=== PATIENT | male | born 1965 | race Caucasian/White ===

== ENCOUNTER 2016-11-16 15:46 | Inpatient (IN) | payer MEDICARE ==
[~2016-11-16] VITALS: Ht 175.3 cm; Wt 75.7 kg
[~2016-11-16 15:46] MED LIST: BLOO-668 IN; INSU100V11 SQ; INSU100V7 SQ; LINE600T2 PO; METF500T7 PO
[2016-11-16 16:10] LABS: BASOPHILS # (AUTO) 0.1 /CMM (0.0-0.2); BASOPHILS % (AUTO) 0.5 % (0.0-2.0); DIFF TOTAL % 100 %; HEMATOCRIT 30 % (39-51); LYMPHOCYTES % (AUTO) 5.4 % (20.0-44.0); MEAN CORPUSCULAR HEMOGLOBIN 30 PG (26.0-33.0); MEAN CORPUSCULAR HGB CONC 34 g/dl (31.0-36.0); MEAN CORPUSCULAR VOLUME 89 fL (80-96); MONOCYTES # (AUTO) 0.2 /CMM (0.1-1.30); MONOCYTES % (AUTO) 1.1 % (2.0-12.0); NEUTROPHILS # (AUTO) 17.6 /CMM (1.8-8.9); PLATELET COUNT (AUTO) 474 /CMM (150-450); RED BLOOD CELL COUNT(AUTO) 3.34 MIL/uL (4.5-6.0); WHITE BLOOD COUNT (AUTO) 18.9 K/uL (4.3-11.0)
[2016-11-16 16:24] LABS: INR 1.12 (0.87-1.13); PROTHROMBIN TIME 11.8 SECS (9.5-12.7)
[2016-11-16] MEDS ORDERED: MORPHINE SULFATE INJ 4 MG/ML DISP.SYRIN ONE (16:25)
[2016-11-16] MEDS ORDERED: ONDANSETRON HCL/PF 4 MG/2 ML VIAL ONE (16:25)
[2016-11-16] MEDS ORDERED: ACETAMINOPHEN ES 500 MG TABLET ONE (16:25)
[2016-11-16 16:26] LABS: ANION GAP 20 (5-14); BILIRUBIN,TOTAL 0.2 mg/dL (0.2-1.0); CALCIUM, SERUM 8.8 mg/dL (8.5-10.1); CARBON DIOXIDE 24 mmol/L (21-32); CHLORIDE 86 mmol/L (98-107); CREATININE 1.6 mg/dL (0.6-1.3); GFR 46 mL/min (>60); POTASSIUM 4.3 mmol/L (3.5-5.1); SODIUM SERUM 126 mmol/L (136-145); UREA NITROGEN, BLOOD 20 mg/dL (7-18)
[2016-11-16] MEDS ORDERED: IV NS 0.9% 2,000 ML ONE (16:26)
[2016-11-16] MEDS ORDERED: IV NS 0.9% 500 ML IV ONE (16:26)
[2016-11-16] MEDS ORDERED: IV SET PRIMARY 1 EA INFUS.SET MC ONE (16:26)
[2016-11-16] MEDS ORDERED: IV SET PRIMARY PUMP SET 1 EA INFUS.SET MC ONE ×3 (16:26→21:42)
[2016-11-16 16:27] LABS: ALANINE AMINOTRANSFERASE 19 U/L (12-78); ALBUMIN 2.2 g/dL (3.4-5.0); ASPARTATE AMINOTRANSFERASE 17 U/L (15-37); BILIRUBIN,DIRECT 0.1 mg/dL (0.0-0.2); INDIRECT BILIRUBIN 0.1 mg/dL (0.0-1.1); TOTAL PROTEIN, SERUM 7.9 g/dL (6.4-8.2)
[2016-11-16 16:29] LABS: TROPONIN I < 0.017 ng/mL (0.00-0.056)
[2016-11-16] MEDS ORDERED: ONDANSETRON HCL/PF 4 MG/2 ML VIAL IVP ONE (16:30)
[2016-11-16] MEDS ORDERED: VANCOMYCIN 1 GM in IV D5W 250 ML IV ONE (16:30)
[2016-11-16] MEDS ORDERED: MORPHINE SULFATE INJ 2 MG/ML DISP.SYRIN IV ONE (16:30)
[2016-11-16] MEDS ORDERED: PIPERACILLIN /TAZOBACTAM 3.375 G in IV D5W 50 ML IV ONE (16:30)
[2016-11-16] MEDS ORDERED: IV NS 0.9% 1,000 ML BAG IV ONE (16:30)
[2016-11-16] MEDS ORDERED: ACETAMINOPHEN 325 MG TABLET PO ONE (16:30)
[2016-11-16 16:32] LABS: GLUCOSE 485 mg/dL (74-106)
[2016-11-16] MEDS ORDERED: INSULIN REGULAR, HUMAN 100 UNIT/ML 10 ML VIAL SQ ONE (17:00)
[2016-11-16 17:08] LABS: *LACTIC ACID REFLEX FLAG YES
[2016-11-16 17:14] LABS: BAND % (MANUAL) 9 % (0.0-5.0); LYMPHOCYTES % (MANUAL) 4 % (16-48)
[2016-11-16 17:15] LABS: PLATELET ESTIMATE ADEQUATE
[2016-11-16] MEDS ORDERED: INSULIN REGULAR, HUMAN 100 UNIT/ML 10 ML VIAL ONE (17:42)
[2016-11-16] MEDS ORDERED: DEXTROSE 50%-WATER 50 ML DISP.SYRIN IV PRN (18:30)
[2016-11-16] MEDS ORDERED: MAGNESIUM HYDROXIDE 30 ML UDC PO PRN (18:30)
[2016-11-16] MEDS ORDERED: MAG HYDROX/AL HYDROX/SIMETH 30 ML UDC PO PRN (18:30)
[2016-11-16] MEDS ORDERED: PIPERACILLIN /TAZOBACTAM 4.5 G in IV D5W 50 ML IV SCH (18:30)
[2016-11-16] MEDS ORDERED: ZOLPIDEM TARTRATE 5 MG TABLET PO PRN (18:30)
[2016-11-16] MEDS ORDERED: ACETAMINOPHEN 325 MG TABLET PO PRN (18:30)
[2016-11-16] MEDS ORDERED: FEE PK DOSING 1 MIN EA MC ONE (19:07)
[2016-11-16 20:45] VITALS: BP 149/84
[2016-11-16 21:15] VITALS: BP 149/84
[2016-11-16] MEDS: METRONIDAZOLE 500MG/ NS 100ML 500 MG in PREMIX 1 EA IV SCH (21:41)
[2016-11-16] MEDS: PANTOPRAZOLE 40 MG TABLET.DR PO SCH (21:41)
[2016-11-16] MEDS: IV NS 0.9% 1,000 ML IV PRN (21:42)
[2016-11-16] MEDS: HYDROCODONE/APAP 5/325MG 1 EACH TABLET PO PRN (21:42)
[2016-11-16] MEDS ORDERED: SECONDARY IV SET 1 EA INFUS.SET MC ONE ×2 (21:44→23:47)
[2016-11-16] MEDS: INSULIN DETEMIR 100 UNIT/ML CARTRIDGE SQ SCH (22:00)
[2016-11-16] MEDS: BLOOD SUGAR DIAGNOSTIC 1 EACH STRIP IN SCH ×2 (22:29→22:38)
[2016-11-16] MEDS: PIPERACILLIN /TAZOBACTAM 3.375 G in IV D5W 50 ML IV SCH (23:54)
[2016-11-17] VITALS (7 sets, daily range): BP systolic 131–157; BP diastolic 69–74
[2016-11-17] MEDS: HYDROCODONE/APAP 5/325MG 1 EACH TABLET PO PRN ×3 (01:47→10:02)
[2016-11-17] MEDS: METRONIDAZOLE 500MG/ NS 100ML 500 MG in PREMIX 1 EA IV SCH ×2 (05:02→13:32)
[2016-11-17] MEDS: PIPERACILLIN /TAZOBACTAM 3.375 G in IV D5W 50 ML IV SCH ×4 (06:04→23:23)
[2016-11-17] MEDS: VANCOMYCIN 1 GM in IV D5W 250 ML IV SCH ×2 (06:30→17:50)
[2016-11-17] MEDS: BLOOD SUGAR DIAGNOSTIC 1 EACH STRIP IN SCH ×6 (06:37→21:43)
[2016-11-17] MEDS: INSULIN REGULAR, HUMAN 100 UNIT/ML 3 ML VIAL SQ PRN ×2 (06:38→17:07)
[2016-11-17] MEDS: INSULIN DETEMIR 100 UNIT/ML CARTRIDGE SQ SCH ×2 (07:00→17:04)
[2016-11-17 07:23] LABS: DIFF TOTAL % 100 %; EOSINOPHILS # (AUTO) 0.1 /CMM (0.0-0.7); EOSINOPHILS % (AUTO) 0.4 % (0.0-6.0); HEMATOCRIT 24 % (39-51); HEMOGLOBIN 8.1 g/dL (13.5-17.5); LYMPHOCYTES % (AUTO) 6.5 % (20.0-44.0); MEAN CORPUSCULAR HEMOGLOBIN 30 PG (26.0-33.0); MEAN CORPUSCULAR HGB CONC 34 g/dl (31.0-36.0); MEAN CORPUSCULAR VOLUME 89 fL (80-96); MONOCYTES # (AUTO) 1.2 /CMM (0.1-1.30); MONOCYTES % (AUTO) 8.4 % (2.0-12.0); NEUTROPHILS # (AUTO) 12.5 /CMM (1.8-8.9); NEUTROPHILS % (AUTO) 84.7 % (43.0-81.0); PLATELET COUNT (AUTO) 401 /CMM (150-450); RED BLOOD CELL COUNT(AUTO) 2.69 MIL/uL (4.5-6.0); WHITE BLOOD COUNT (AUTO) 14.7 K/uL (4.3-11.0)
[2016-11-17 07:54] LABS: ALANINE AMINOTRANSFERASE 20 U/L (12-78); ALBUMIN 1.8 g/dL (3.4-5.0); ANION GAP 9 (5-14); ASPARTATE AMINOTRANSFERASE 16 U/L (15-37); BILIRUBIN,TOTAL 0.2 mg/dL (0.2-1.0); CALCIUM, SERUM 8.4 mg/dL (8.5-10.1); CARBON DIOXIDE 31 mmol/L (21-32); CHLORIDE 98 mmol/L (98-107); CREATININE 1.3 mg/dL (0.6-1.3); GFR 58 mL/min (>60); GLUCOSE 163 mg/dL (74-106); PHOSPHORUS 3.2 mg/dL (2.5-4.9); POTASSIUM 3.9 mmol/L (3.5-5.1); SODIUM SERUM 134 mmol/L (136-145); TOTAL PROTEIN, SERUM 6.6 g/dL (6.4-8.2); UREA NITROGEN, BLOOD 21 mg/dL (7-18)
[2016-11-17 07:55] LABS: CHOLESTEROL 110 mg/dL (<200); LDL 41 mg/dL (0-99); TRIGLYCERIDES 225 mg/dL (30-150)
[2016-11-17 07:56] LABS: HDL CHOLESTEROL < 10 mg/dL (40-60)
[2016-11-17] MEDS: PANTOPRAZOLE 40 MG TABLET.DR PO SCH (09:13)
[2016-11-17] MEDS: DAKINS QUARTER STRENGTH (0.125%) 480 ML BOTTLE TOP SCH (09:13)
[2016-11-17] MEDS ORDERED: FENTANYL PF 100MCG/2ML AMPUL ONE (11:28)
[2016-11-17] MEDS ORDERED: MIDAZOLAM HCL 2 MG/2ML VIAL ONE (11:28)
[2016-11-17] MEDS ORDERED: LIDOCAINE HCL/PF 1% 30 ML SDV ONE (11:37)
[2016-11-17] MEDS ORDERED: VANCOMYCIN 1 GM VIAL ONE (11:42)
[2016-11-17] MEDS ORDERED: BACITRACIN 50000 UNITS/VIAL ONE (11:42)
[2016-11-17] MEDS: HYDROCODONE/APAP 10/325MG 1 EA TABLET PO PRN ×2 (17:02→21:40)
[2016-11-17] MEDS: IV NS 0.9% 1,000 ML IV PRN (17:14)
[2016-11-18] MEDS: VANCOMYCIN 1 GM in IV D5W 250 ML IV SCH (05:08)
[2016-11-18] MEDS: PIPERACILLIN /TAZOBACTAM 3.375 G in IV D5W 50 ML IV SCH ×3 (06:12→17:04)
[2016-11-18 06:44] LABS: BASOPHILS % (AUTO) 0.1 % (0.0-2.0); DIFF TOTAL % 100 %; EOSINOPHILS # (AUTO) 0.1 /CMM (0.0-0.7); EOSINOPHILS % (AUTO) 0.8 % (0.0-6.0); HEMATOCRIT 24 % (39-51); LYMPHOCYTES # (AUTO) 1.1 /CMM (0.8-4.8); LYMPHOCYTES % (AUTO) 9.8 % (20.0-44.0); MEAN CORPUSCULAR HEMOGLOBIN 30 PG (26.0-33.0); MEAN CORPUSCULAR HGB CONC 33 g/dl (31.0-36.0); MEAN CORPUSCULAR VOLUME 91 fL (80-96); MONOCYTES # (AUTO) 0.5 /CMM (0.1-1.30); MONOCYTES % (AUTO) 4.1 % (2.0-12.0); NEUTROPHILS # (AUTO) 9.8 /CMM (1.8-8.9); NEUTROPHILS % (AUTO) 85.2 % (43.0-81.0); PLATELET COUNT (AUTO) 435 /CMM (150-450); RED BLOOD CELL COUNT(AUTO) 2.66 MIL/uL (4.5-6.0); RETICULOCYTE COUNT 0.3 % (0.6-2.5); WHITE BLOOD COUNT (AUTO) 11.5 K/uL (4.3-11.0)
[2016-11-18] MEDS: INSULIN DETEMIR 100 UNIT/ML CARTRIDGE SQ SCH ×2 (07:00→16:50)
[2016-11-18] MEDS: BLOOD SUGAR DIAGNOSTIC 1 EACH STRIP IN SCH ×5 (07:09→22:45)
[2016-11-18] MEDS: INSULIN REGULAR, HUMAN 100 UNIT/ML 3 ML VIAL SQ PRN ×3 (07:10→16:50)
[2016-11-18 07:24] LABS: CALCIUM, SERUM 8.1 mg/dL (8.5-10.1); CREATININE 1.4 mg/dL (0.6-1.3); POTASSIUM 3.5 mmol/L (3.5-5.1)
[2016-11-18 07:39] LABS: URIC ACID 4.2 mg/dL (2.6-7.2)
[2016-11-18 07:50] VITALS: BP 152/81
[2016-11-18 08:00] VITALS: BP 138/72
[2016-11-18] MEDS: PANTOPRAZOLE 40 MG TABLET.DR PO SCH (08:19)
[2016-11-18] MEDS: MULTIVITAMINS W-MINERALS 1 TAB TABLET PO SCH (08:19)
[2016-11-18] MEDS: ASCORBIC ACID 500 MG TABLET PO SCH (08:19)
[2016-11-18] MEDS: HYDROCODONE/APAP 10/325MG 1 EA TABLET PO PRN ×3 (08:30→22:41)
[2016-11-18] MEDS: DAKINS QUARTER STRENGTH (0.125%) 480 ML BOTTLE TOP SCH (09:00)
[2016-11-18] MEDS ORDERED: LOPERAMIDE HCL (2 MG CAP) 2 MG CAPSULE PO ONE (11:30)
[2016-11-18] MEDS: IV NS 0.9% 1,000 ML IV PRN (11:37)
[2016-11-18] MEDS: FOLIC ACID 1 MG TABLET PO SCH (13:30)
[2016-11-18 16:00] VITALS: BP 153/78
[2016-11-18] MEDS: LOPERAMIDE HCL (2 MG CAP) 2 MG CAPSULE PO PRN (17:08)
[2016-11-18] MEDS ORDERED: VANCOMYCIN 1 GM in IV D5W 250 ML IV SCH (19:00)
[2016-11-18 20:00] VITALS: BP 168/86
[2016-11-18] MEDS: METRONIDAZOLE 500 MG TABLET PO SCH (21:10)
[2016-11-18] MEDS: ACIDOPHILUS/BULGARICUS 1 EACH TAB.CHEW PO SCH (21:10)
[2016-11-18] MEDS: CEFTRIAXONE 2 G in IV D5W 100 ML IV SCH (21:10)
[2016-11-18] MEDS ORDERED: SECONDARY IV SET 1 EA INFUS.SET MC ONE (21:11)
[2016-11-19] MEDS: HYDROCODONE/APAP 10/325MG 1 EA TABLET PO PRN ×4 (03:38→20:18)
[2016-11-19] MEDS: METRONIDAZOLE 500 MG TABLET PO SCH ×3 (05:21→20:17)
[2016-11-19] MEDS: BLOOD SUGAR DIAGNOSTIC 1 EACH STRIP IN SCH ×5 (06:22→21:13)
[2016-11-19] MEDS ORDERED: IV SET PRIMARY PUMP SET 1 EA INFUS.SET MC ONE (07:06)
[2016-11-19] MEDS: INSULIN REGULAR, HUMAN 100 UNIT/ML 3 ML VIAL SQ PRN (07:15)
[2016-11-19] MEDS: INSULIN DETEMIR 100 UNIT/ML CARTRIDGE SQ SCH ×2 (07:15→16:43)
[2016-11-19 07:57] LABS: CALCIUM, SERUM 8.5 mg/dL (8.5-10.1); CREATININE 1.5 mg/dL (0.6-1.3); POTASSIUM 3.7 mmol/L (3.5-5.1)
[2016-11-19 08:00] VITALS: BP 162/78
[2016-11-19] MEDS: MULTIVITAMINS W-MINERALS 1 TAB TABLET PO SCH (08:37)
[2016-11-19] MEDS: ACIDOPHILUS/BULGARICUS 1 EACH TAB.CHEW PO SCH ×3 (08:37→16:26)
[2016-11-19] MEDS: ASCORBIC ACID 500 MG TABLET PO SCH (08:37)
[2016-11-19] MEDS: FOLIC ACID 1 MG TABLET PO SCH (08:37)
[2016-11-19] MEDS: PANTOPRAZOLE 40 MG TABLET.DR PO SCH (08:37)
[2016-11-19 08:38] LABS: BASOPHILS % (AUTO) 0.2 % (0.0-2.0); DIFF TOTAL % 100 %; EOSINOPHILS # (AUTO) 0.3 /CMM (0.0-0.7); EOSINOPHILS % (AUTO) 2.3 % (0.0-6.0); HEMATOCRIT 26 % (39-51); HEMOGLOBIN 8.4 g/dL (13.5-17.5); LYMPHOCYTES # (AUTO) 1.2 /CMM (0.8-4.8); LYMPHOCYTES % (AUTO) 8.5 % (20.0-44.0); MEAN CORPUSCULAR HEMOGLOBIN 30 PG (26.0-33.0); MEAN CORPUSCULAR HGB CONC 33 g/dl (31.0-36.0); MEAN CORPUSCULAR VOLUME 91 fL (80-96); MONOCYTES # (AUTO) 0.8 /CMM (0.1-1.30); MONOCYTES % (AUTO) 5.7 % (2.0-12.0); NEUTROPHILS # (AUTO) 11.7 /CMM (1.8-8.9); NEUTROPHILS % (AUTO) 83.3 % (43.0-81.0); PLATELET COUNT (AUTO) 561 /CMM (150-450); RED BLOOD CELL COUNT(AUTO) 2.83 MIL/uL (4.5-6.0)
[2016-11-19] MEDS: DAKINS QUARTER STRENGTH (0.125%) 480 ML BOTTLE TOP SCH (09:00)
[2016-11-19] MEDS: IV NS 0.9% 1,000 ML IV PRN (09:32)
[2016-11-19 09:42] VITALS: BP 162/78
[2016-11-19] MEDS: LOPERAMIDE HCL (2 MG CAP) 2 MG CAPSULE PO PRN (14:29)
[2016-11-19 16:00] VITALS: BP 169/92
[2016-11-19 20:00] VITALS: BP 172/92
[2016-11-19] MEDS: CEFTRIAXONE 2 G in IV D5W 100 ML IV SCH (20:19)
[2016-11-19 20:29] VITALS: BP 172/92
[2016-11-19 21:00] VITALS: BP 153/79
[2016-11-20] MEDS: IV NS 0.9% 1,000 ML IV PRN (03:12)
[2016-11-20] MEDS: HYDROCODONE/APAP 10/325MG 1 EA TABLET PO PRN ×4 (03:12→22:52)
[2016-11-20] MEDS: METRONIDAZOLE 500 MG TABLET PO SCH ×3 (05:43→21:53)
[2016-11-20] MEDS: BLOOD SUGAR DIAGNOSTIC 1 EACH STRIP IN SCH ×5 (06:42→21:53)
[2016-11-20] MEDS: INSULIN DETEMIR 100 UNIT/ML CARTRIDGE SQ SCH ×2 (06:43→18:43)
[2016-11-20] MEDS ORDERED: FENTANYL PF 100MCG/2ML AMPUL ONE (06:55)
[2016-11-20] MEDS ORDERED: LIDOCAINE HCL/PF 1% 30 ML SDV ONE (07:00)
[2016-11-20] MEDS ORDERED: BUPIVACAINE 0.5 % PF 150 MG/30 ML VIAL ONE (07:01)
[2016-11-20] MEDS ORDERED: BACITRACIN 50000 UNITS/VIAL ONE (07:01)
[2016-11-20] MEDS ORDERED: SEVOFLURANE 250 ML BOTTLE IH ONE (07:09)
[2016-11-20] MEDS: PANTOPRAZOLE 40 MG TABLET.DR PO SCH (07:30)
[2016-11-20] MEDS ORDERED: VANCOMYCIN 1 GM VIAL ONE (07:31)
[2016-11-20 08:00] VITALS: BP_SYST 146; BP_DIAS 76; BP_DIAS 82
[2016-11-20] MEDS: ASCORBIC ACID 500 MG TABLET PO SCH (09:24)
[2016-11-20] MEDS: MULTIVITAMINS W-MINERALS 1 TAB TABLET PO SCH (09:24)
[2016-11-20] MEDS: ACIDOPHILUS/BULGARICUS 1 EACH TAB.CHEW PO SCH ×3 (09:24→18:42)
[2016-11-20] MEDS: FOLIC ACID 1 MG TABLET PO SCH (09:24)
[2016-11-20 10:24] LABS: BASOPHILS % (AUTO) 0.4 % (0.0-2.0); DIFF TOTAL % 100 %; EOSINOPHILS # (AUTO) 0.2 /CMM (0.0-0.7); EOSINOPHILS % (AUTO) 1.8 % (0.0-6.0); HEMATOCRIT 25 % (39-51); HEMOGLOBIN 8.1 g/dL (13.5-17.5); LYMPHOCYTES # (AUTO) 0.9 /CMM (0.8-4.8); LYMPHOCYTES % (AUTO) 6.7 % (20.0-44.0); MEAN CORPUSCULAR HEMOGLOBIN 30 PG (26.0-33.0); MEAN CORPUSCULAR HGB CONC 33 g/dl (31.0-36.0); MEAN CORPUSCULAR VOLUME 91 fL (80-96); MONOCYTES # (AUTO) 0.7 /CMM (0.1-1.30); MONOCYTES % (AUTO) 5.1 % (2.0-12.0); NEUTROPHILS # (AUTO) 11.2 /CMM (1.8-8.9); PLATELET COUNT (AUTO) 645 /CMM (150-450); RED BLOOD CELL COUNT(AUTO) 2.75 MIL/uL (4.5-6.0)
[2016-11-20 10:33] LABS: CREATININE 1.2 mg/dL (0.6-1.3); POTASSIUM 4.3 mmol/L (3.5-5.1)
[2016-11-20] MEDS: INSULIN REGULAR, HUMAN 100 UNIT/ML 3 ML VIAL SQ PRN (12:52)
[2016-11-20 16:00] VITALS: BP 140/82
[2016-11-20] MEDS ORDERED: FEE PK DOSING 1 MIN EA MC ONE (17:02)
[2016-11-20] MEDS ORDERED: VANCOMYCIN 1 GM in IV D5W 250 ML IV SCH (18:00)
[2016-11-20 20:00] VITALS: BP 155/80
[2016-11-20] MEDS: CEFTRIAXONE 2 G in IV D5W 100 ML IV SCH (21:53)
[2016-11-20] MEDS: BLOOD SUGAR DIAGNOSTIC 1 EACH STRIP VI SCH (22:14)
[2016-11-20] MEDS ORDERED: DEXTROSE 50%-WATER 50 ML DISP.SYRIN IV PRN (22:30)
[2016-11-20 22:45] VITALS: BP 155/80
[2016-11-21] VITALS (11 sets, daily range): BP systolic 100–181; BP diastolic 66–103
[2016-11-21] MEDS: HYDROCODONE/APAP 10/325MG 1 EA TABLET PO PRN ×5 (05:48→20:10)
[2016-11-21] MEDS: METRONIDAZOLE 500 MG TABLET PO SCH ×3 (05:48→20:55)
[2016-11-21] MEDS: INSULIN DETEMIR 100 UNIT/ML CARTRIDGE SQ SCH ×2 (06:47→17:37)
[2016-11-21] MEDS: INSULIN REGULAR, HUMAN 100 UNIT/ML 3 ML VIAL SQ PRN ×3 (06:48→17:36)
[2016-11-21] MEDS: BLOOD SUGAR DIAGNOSTIC 1 EACH STRIP VI SCH ×4 (06:53→22:00)
[2016-11-21 08:18] LABS: BASOPHILS % (AUTO) 0.2 % (0.0-2.0); DIFF TOTAL % 100 %; EOSINOPHILS # (AUTO) 0.2 /CMM (0.0-0.7); EOSINOPHILS % (AUTO) 1.8 % (0.0-6.0); HEMATOCRIT 22 % (39-51); HEMOGLOBIN 7.1 g/dL (13.5-17.5); LYMPHOCYTES # (AUTO) 1.2 /CMM (0.8-4.8); LYMPHOCYTES % (AUTO) 9.5 % (20.0-44.0); MEAN CORPUSCULAR HEMOGLOBIN 30 PG (26.0-33.0); MEAN CORPUSCULAR HGB CONC 33 g/dl (31.0-36.0); MEAN CORPUSCULAR VOLUME 90 fL (80-96); MONOCYTES # (AUTO) 0.8 /CMM (0.1-1.30); MONOCYTES % (AUTO) 6.4 % (2.0-12.0); NEUTROPHILS # (AUTO) 10.5 /CMM (1.8-8.9); NEUTROPHILS % (AUTO) 82.1 % (43.0-81.0); PLATELET COUNT (AUTO) 695 /CMM (150-450); RED BLOOD CELL COUNT(AUTO) 2.39 MIL/uL (4.5-6.0); WHITE BLOOD COUNT (AUTO) 12.8 K/uL (4.3-11.0)
[2016-11-21 08:30] LABS: CREATININE 1.1 mg/dL (0.6-1.3); POTASSIUM 3.8 mmol/L (3.5-5.1)
[2016-11-21] MEDS: ASCORBIC ACID 500 MG TABLET PO SCH (09:17)
[2016-11-21] MEDS: FOLIC ACID 1 MG TABLET PO SCH (09:17)
[2016-11-21] MEDS: MULTIVITAMINS W-MINERALS 1 TAB TABLET PO SCH (09:17)
[2016-11-21] MEDS: PANTOPRAZOLE 40 MG TABLET.DR PO SCH (09:17)
[2016-11-21] MEDS: ACIDOPHILUS/BULGARICUS 1 EACH TAB.CHEW PO SCH ×3 (09:17→17:27)
[2016-11-21] MEDS: BLOOD SUGAR DIAGNOSTIC 1 EACH STRIP IN SCH (09:18)
[2016-11-21] MEDS: ONDANSETRON HCL/PF 4 MG/2 ML VIAL IVP PRN (13:27)
[2016-11-21] MEDS: IV NS 0.9% 1,000 ML IV PRN (13:29)
[2016-11-21] MEDS ORDERED: BLOOD IV SET 1 EA INFUS.SET MC ONE ×2 (14:26→16:12)
[2016-11-21] MEDS ORDERED: IV NS 0.9% 250 ML IV ONE (14:26)
[2016-11-21] MEDS ORDERED: VANCOMYCIN 1 GM in IV D5W 250 ML IV SCH (16:00)
[2016-11-21] MEDS: VANCOMYCIN 1 GM in IV D5W 250 ML IV SCH (17:42)
[2016-11-21] MEDS: CEFTRIAXONE 2 G in IV D5W 100 ML IV SCH (20:54)
[2016-11-21] MEDS: hydrALAZINE HCL 25 MG TABLET PO PRN (20:56)
[2016-11-21] MEDS: *INSULIN REGULAR(HUMULIN R)HUM 100 UNIT/ML VIAL SQ PRN (22:59)
[2016-11-22] MEDS: HYDROCODONE/APAP 10/325MG 1 EA TABLET PO PRN ×5 (02:38→20:14)
[2016-11-22] MEDS: VANCOMYCIN 1 GM in IV D5W 250 ML IV SCH ×2 (04:51→17:50)
[2016-11-22] MEDS: METRONIDAZOLE 500 MG TABLET PO SCH ×3 (04:51→20:14)
[2016-11-22] MEDS: BLOOD SUGAR DIAGNOSTIC 1 EACH STRIP VI SCH ×4 (06:46→22:47)
[2016-11-22] MEDS: hydrALAZINE HCL 25 MG TABLET PO PRN ×2 (06:49→17:41)
[2016-11-22] MEDS: INSULIN DETEMIR 100 UNIT/ML CARTRIDGE SQ SCH ×2 (07:00→17:48)
[2016-11-22 07:43] LABS: BASOPHILS % (AUTO) 0.1 % (0.0-2.0); DIFF TOTAL % 100 %; EOSINOPHILS # (AUTO) 0.3 /CMM (0.0-0.7); EOSINOPHILS % (AUTO) 2.6 % (0.0-6.0); HEMATOCRIT 29 % (39-51); HEMOGLOBIN 9.6 g/dL (13.5-17.5); LYMPHOCYTES # (AUTO) 1.5 /CMM (0.8-4.8); LYMPHOCYTES % (AUTO) 13.2 % (20.0-44.0); MEAN CORPUSCULAR HEMOGLOBIN 30 PG (26.0-33.0); MEAN CORPUSCULAR HGB CONC 33 g/dl (31.0-36.0); MEAN CORPUSCULAR VOLUME 90 fL (80-96); MONOCYTES % (AUTO) 8.3 % (2.0-12.0); NEUTROPHILS # (AUTO) 8.8 /CMM (1.8-8.9); NEUTROPHILS % (AUTO) 75.8 % (43.0-81.0); RED BLOOD CELL COUNT(AUTO) 3.24 MIL/uL (4.5-6.0); WHITE BLOOD COUNT (AUTO) 11.6 K/uL (4.3-11.0)
[2016-11-22 07:48] LABS: PLATELET COUNT (AUTO) 901 /CMM (150-450)
[2016-11-22 08:00] VITALS: BP 169/89
[2016-11-22 08:05] LABS: CALCIUM, SERUM 8.2 mg/dL (8.5-10.1); CREATININE 0.9 mg/dL (0.6-1.3)
[2016-11-22] MEDS: ACIDOPHILUS/BULGARICUS 1 EACH TAB.CHEW PO SCH ×3 (09:39→17:59)
[2016-11-22] MEDS: PANTOPRAZOLE 40 MG TABLET.DR PO SCH (09:39)
[2016-11-22] MEDS: ASCORBIC ACID 500 MG TABLET PO SCH (09:40)
[2016-11-22] MEDS: LISINOPRIL (10MG) 10 MG TABLET PO SCH ×2 (09:40→17:41)
[2016-11-22] MEDS: AMLODIPINE BESYLATE 10 MG TABLET PO SCH (09:40)
[2016-11-22] MEDS: FOLIC ACID 1 MG TABLET PO SCH (09:40)
[2016-11-22] MEDS: BLOOD SUGAR DIAGNOSTIC 1 EACH STRIP IN SCH (09:41)
[2016-11-22] MEDS: MULTIVITAMINS W-MINERALS 1 TAB TABLET PO SCH (09:41)
[2016-11-22] MEDS: INSULIN REGULAR, HUMAN 100 UNIT/ML 3 ML VIAL SQ PRN ×3 (09:50→17:47)
[2016-11-22] MEDS: BUPROPION XL 150 MG TAB.ER.24 PO SCH (12:15)
[2016-11-22 16:00] VITALS: BP 172/104
[2016-11-22 18:00] VITALS: BP 172/104
[2016-11-22 20:00] VITALS: BP 144/98
[2016-11-22] MEDS: CEFTRIAXONE 2 G in IV D5W 100 ML IV SCH (20:14)
[2016-11-22 22:00] VITALS: BP 144/98
[2016-11-22] MEDS: *INSULIN REGULAR(HUMULIN R)HUM 100 UNIT/ML VIAL SQ PRN (22:46)
[2016-11-23] MEDS: HYDROCODONE/APAP 10/325MG 1 EA TABLET PO PRN ×5 (02:14→21:07)
[2016-11-23] MEDS: METRONIDAZOLE 500 MG TABLET PO SCH ×3 (06:14→21:07)
[2016-11-23] MEDS: PANTOPRAZOLE 40 MG TABLET.DR PO SCH (06:14)
[2016-11-23] MEDS: VANCOMYCIN 1 GM in IV D5W 250 ML IV SCH ×2 (06:14→18:31)
[2016-11-23] MEDS: BLOOD SUGAR DIAGNOSTIC 1 EACH STRIP VI SCH ×4 (06:15→21:09)
[2016-11-23] MEDS: INSULIN REGULAR, HUMAN 100 UNIT/ML 3 ML VIAL SQ PRN ×3 (06:24→17:12)
[2016-11-23] MEDS: INSULIN DETEMIR 100 UNIT/ML CARTRIDGE SQ SCH ×2 (06:26→18:33)
[2016-11-23 07:12] LABS: BASOPHILS % (AUTO) 0.3 % (0.0-2.0); DIFF TOTAL % 100 %; EOSINOPHILS # (AUTO) 0.2 /CMM (0.0-0.7); EOSINOPHILS % (AUTO) 2.3 % (0.0-6.0); HEMATOCRIT 30 % (39-51); HEMOGLOBIN 9.8 g/dL (13.5-17.5); LYMPHOCYTES # (AUTO) 1.6 /CMM (0.8-4.8); LYMPHOCYTES % (AUTO) 14.8 % (20.0-44.0); MEAN CORPUSCULAR HEMOGLOBIN 30 PG (26.0-33.0); MEAN CORPUSCULAR HGB CONC 33 g/dl (31.0-36.0); MEAN CORPUSCULAR VOLUME 89 fL (80-96); MONOCYTES # (AUTO) 0.9 /CMM (0.1-1.30); MONOCYTES % (AUTO) 8.1 % (2.0-12.0); NEUTROPHILS # (AUTO) 8.1 /CMM (1.8-8.9); NEUTROPHILS % (AUTO) 74.5 % (43.0-81.0); RED BLOOD CELL COUNT(AUTO) 3.32 MIL/uL (4.5-6.0); WHITE BLOOD COUNT (AUTO) 10.9 K/uL (4.3-11.0)
[2016-11-23 07:31] LABS: CALCIUM, SERUM 8.2 mg/dL (8.5-10.1); CREATININE 1.1 mg/dL (0.6-1.3); POTASSIUM 4.1 mmol/L (3.5-5.1)
[2016-11-23 07:59] LABS: PLATELET COUNT (AUTO) 1067 /CMM (150-450)
[2016-11-23 08:00] VITALS: BP 145/77
[2016-11-23 08:05] LABS: LYMPHOCYTES % (MANUAL) 16 % (16-48); PLATELET ESTIMATE INCREASED
[2016-11-23] MEDS: BLOOD SUGAR DIAGNOSTIC 1 EACH STRIP IN SCH (09:00)
[2016-11-23] MEDS: FOLIC ACID 1 MG TABLET PO SCH (09:45)
[2016-11-23] MEDS: MULTIVITAMINS W-MINERALS 1 TAB TABLET PO SCH (09:45)
[2016-11-23] MEDS: ONDANSETRON HCL/PF 4 MG/2 ML VIAL IVP PRN ×2 (09:45→22:48)
[2016-11-23] MEDS: ACIDOPHILUS/BULGARICUS 1 EACH TAB.CHEW PO SCH ×3 (09:45→17:04)
[2016-11-23] MEDS: BUPROPION XL 150 MG TAB.ER.24 PO SCH (09:46)
[2016-11-23] MEDS: AMLODIPINE BESYLATE 10 MG TABLET PO SCH (09:46)
[2016-11-23] MEDS: LISINOPRIL (10MG) 10 MG TABLET PO SCH ×2 (09:46→17:04)
[2016-11-23] MEDS: ASCORBIC ACID 500 MG TABLET PO SCH (09:46)
[2016-11-23 10:00] VITALS: BP 145/77
[2016-11-23 16:00] VITALS: BP 165/102
[2016-11-23] MEDS: hydrALAZINE HCL 25 MG TABLET PO PRN ×2 (17:04→22:49)
[2016-11-23] MEDS: ASPIRIN 81 MG TAB.CHEW PO SCH (17:07)
[2016-11-23 20:14] VITALS: BP 166/87
[2016-11-23] MEDS: CEFTRIAXONE 2 G in IV D5W 100 ML IV SCH (21:07)
[2016-11-23] MEDS: *INSULIN REGULAR(HUMULIN R)HUM 100 UNIT/ML VIAL SQ PRN (21:17)
[2016-11-23 22:00] VITALS: BP 166/87
[2016-11-24] MEDS: HYDROCODONE/APAP 10/325MG 1 EA TABLET PO PRN ×2 (01:20→23:33)
[2016-11-24] MEDS: METRONIDAZOLE 500 MG TABLET PO SCH ×2 (05:00→12:08)
[2016-11-24] MEDS: VANCOMYCIN 1 GM in IV D5W 250 ML IV SCH (05:08)
[2016-11-24] MEDS: INSULIN DETEMIR 100 UNIT/ML CARTRIDGE SQ SCH ×2 (05:30→18:01)
[2016-11-24] MEDS: BLOOD SUGAR DIAGNOSTIC 1 EACH STRIP VI SCH ×4 (05:31→21:25)
[2016-11-24] MEDS: PANTOPRAZOLE 40 MG TABLET.DR PO SCH (05:31)
[2016-11-24] MEDS ORDERED: HYDROMORPHONE 1 MG/1 ML DISP.SYRIN ONE (05:52)
[2016-11-24] MEDS: HYDROMORPHONE 1 MG/1 ML DISP.SYRIN IV PRN ×4 (05:58→19:29)
[2016-11-24] MEDS: ONDANSETRON HCL/PF 4 MG/2 ML VIAL IVP PRN (05:58)
[2016-11-24] MEDS ORDERED: MIDAZOLAM HCL 2 MG/2ML VIAL ONE ×2 (07:17→07:21)
[2016-11-24] MEDS ORDERED: FENTANYL PF 100MCG/2ML AMPUL ONE (07:17)
[2016-11-24 07:20] LABS: BASOPHILS # (AUTO) 0.2 /CMM (0.0-0.2); BASOPHILS % (AUTO) 1.2 % (0.0-2.0); DIFF TOTAL % 100 %; EOSINOPHILS # (AUTO) 0.3 /CMM (0.0-0.7); EOSINOPHILS % (AUTO) 2.4 % (0.0-6.0); HEMATOCRIT 30 % (39-51); HEMOGLOBIN 9.8 g/dL (13.5-17.5); LYMPHOCYTES # (AUTO) 1.8 /CMM (0.8-4.8); LYMPHOCYTES % (AUTO) 13.1 % (20.0-44.0); MEAN CORPUSCULAR HEMOGLOBIN 29 PG (26.0-33.0); MEAN CORPUSCULAR HGB CONC 33 g/dl (31.0-36.0); MEAN CORPUSCULAR VOLUME 89 fL (80-96); MONOCYTES # (AUTO) 1.1 /CMM (0.1-1.30); NEUTROPHILS # (AUTO) 10.2 /CMM (1.8-8.9); NEUTROPHILS % (AUTO) 75.3 % (43.0-81.0); RED BLOOD CELL COUNT(AUTO) 3.33 MIL/uL (4.5-6.0); WHITE BLOOD COUNT (AUTO) 13.5 K/uL (4.3-11.0)
[2016-11-24] MEDS ORDERED: LIDOCAINE HCL/PF 1% 30 ML SDV ONE (07:20)
[2016-11-24] MEDS ORDERED: BUPIVACAINE 0.5 % PF 150 MG/30 ML VIAL ONE (07:21)
[2016-11-24 07:33] LABS: CALCIUM, SERUM 8.6 mg/dL (8.5-10.1)
[2016-11-24 07:54] LABS: PLATELET COUNT (AUTO) 1199 /CMM (150-450)
[2016-11-24 08:42] VITALS: BP 176/95
[2016-11-24] MEDS: BLOOD SUGAR DIAGNOSTIC 1 EACH STRIP IN SCH (09:00)
[2016-11-24] MEDS: ACIDOPHILUS/BULGARICUS 1 EACH TAB.CHEW PO SCH ×3 (09:04→17:56)
[2016-11-24] MEDS: ASPIRIN 81 MG TAB.CHEW PO SCH (09:04)
[2016-11-24] MEDS: FOLIC ACID 1 MG TABLET PO SCH (09:04)
[2016-11-24] MEDS: ASCORBIC ACID 500 MG TABLET PO SCH (09:04)
[2016-11-24] MEDS: BUPROPION XL 150 MG TAB.ER.24 PO SCH (09:04)
[2016-11-24] MEDS: MULTIVITAMINS W-MINERALS 1 TAB TABLET PO SCH (09:04)
[2016-11-24] MEDS: AMLODIPINE BESYLATE 10 MG TABLET PO SCH (09:05)
[2016-11-24] MEDS: Z GUARD REMEDY 2 OZ OINT TP PRN (09:05)
[2016-11-24] MEDS: LISINOPRIL (10MG) 10 MG TABLET PO SCH ×2 (09:05→17:57)
[2016-11-24] MEDS ORDERED: ANESTHESIA TRAY IN PYXIS 1 EA TRAY MC ONE (09:54)
[2016-11-24 10:39] LABS: INR 0.99 (0.87-1.13); PROTHROMBIN TIME 10.7 SECS (9.5-12.7)
[2016-11-24] MEDS: INSULIN REGULAR, HUMAN 100 UNIT/ML 3 ML VIAL SQ PRN ×2 (12:10→18:01)
[2016-11-24 12:29] LABS: LYMPHOCYTES % (MANUAL) 5 % (16-48); PLATELET ESTIMATE INCREASED
[2016-11-24 16:00] VITALS: BP_SYST 117; BP_SYST 146; BP_DIAS 69; BP_DIAS 90
[2016-11-24] MEDS ORDERED: IV NS 0.9% 250 ML IV ONE (17:47)
[2016-11-24] MEDS ORDERED: SECONDARY IV SET 1 EA INFUS.SET MC ONE ×2 (17:47→21:25)
[2016-11-24] MEDS ORDERED: IV SET PRIMARY PUMP SET 1 EA INFUS.SET MC ONE (17:47)
[2016-11-24 20:05] VITALS: BP 147/88
[2016-11-24] MEDS: *INSULIN REGULAR(HUMULIN R)HUM 100 UNIT/ML VIAL SQ PRN (21:23)
[2016-11-24] MEDS: CEFTRIAXONE 2 G in IV D5W 100 ML IV SCH (21:24)
[2016-11-24 22:00] VITALS: BP 147/88
[2016-11-25] MEDS: HYDROCODONE/APAP 10/325MG 1 EA TABLET PO PRN ×5 (04:34→23:14)
[2016-11-25 06:29] LABS: BASOPHILS % (AUTO) 0.4 % (0.0-2.0); DIFF TOTAL % 100 %; EOSINOPHILS # (AUTO) 0.2 /CMM (0.0-0.7); EOSINOPHILS % (AUTO) 1.4 % (0.0-6.0); HEMATOCRIT 27 % (39-51); LYMPHOCYTES # (AUTO) 1.8 /CMM (0.8-4.8); LYMPHOCYTES % (AUTO) 15.8 % (20.0-44.0); MEAN CORPUSCULAR HEMOGLOBIN 30 PG (26.0-33.0); MEAN CORPUSCULAR HGB CONC 33 g/dl (31.0-36.0); MEAN CORPUSCULAR VOLUME 88 fL (80-96); MONOCYTES # (AUTO) 1.1 /CMM (0.1-1.30); MONOCYTES % (AUTO) 9.7 % (2.0-12.0); NEUTROPHILS # (AUTO) 8.3 /CMM (1.8-8.9); NEUTROPHILS % (AUTO) 72.7 % (43.0-81.0); RED BLOOD CELL COUNT(AUTO) 3.04 MIL/uL (4.5-6.0); WHITE BLOOD COUNT (AUTO) 11.4 K/uL (4.3-11.0)
[2016-11-25] MEDS: INSULIN DETEMIR 100 UNIT/ML CARTRIDGE SQ SCH ×2 (06:49→17:10)
[2016-11-25] MEDS: PANTOPRAZOLE 40 MG TABLET.DR PO SCH (06:49)
[2016-11-25] MEDS: BLOOD SUGAR DIAGNOSTIC 1 EACH STRIP VI SCH ×4 (06:50→23:14)
[2016-11-25 06:55] LABS: CALCIUM, SERUM 8.2 mg/dL (8.5-10.1); CREATININE 1.1 mg/dL (0.6-1.3); POTASSIUM 3.9 mmol/L (3.5-5.1)
[2016-11-25] MEDS: HYDROMORPHONE 1 MG/1 ML DISP.SYRIN IV PRN ×5 (07:44→21:38)
[2016-11-25 07:54] LABS: PLATELET COUNT (AUTO) 1169 /CMM (150-450)
[2016-11-25 08:00] VITALS: BP 147/84
[2016-11-25 08:22] VITALS: BP 147/84
[2016-11-25] MEDS: BUPROPION XL 150 MG TAB.ER.24 PO SCH (09:00)
[2016-11-25] MEDS: Z GUARD REMEDY 2 OZ OINT TP PRN (09:00)
[2016-11-25] MEDS: BLOOD SUGAR DIAGNOSTIC 1 EACH STRIP IN SCH (09:00)
[2016-11-25] MEDS: FOLIC ACID 1 MG TABLET PO SCH (09:00)
[2016-11-25] MEDS: AMLODIPINE BESYLATE 10 MG TABLET PO SCH (09:00)
[2016-11-25] MEDS: MULTIVITAMINS W-MINERALS 1 TAB TABLET PO SCH (09:00)
[2016-11-25] MEDS: ACIDOPHILUS/BULGARICUS 1 EACH TAB.CHEW PO SCH ×3 (09:00→17:02)
[2016-11-25] MEDS: LISINOPRIL (10MG) 10 MG TABLET PO SCH ×2 (09:00→17:02)
[2016-11-25] MEDS: ASCORBIC ACID 500 MG TABLET PO SCH (09:00)
[2016-11-25] MEDS: ASPIRIN 81 MG TAB.CHEW PO SCH (09:00)
[2016-11-25 11:01] LABS: EOSINOPHILS % (MANUAL) 4 % (0-4); LYMPHOCYTES % (MANUAL) 17 % (16-48)
[2016-11-25 11:02] LABS: PLATELET ESTIMATE INCREASED
[2016-11-25] MEDS: INSULIN REGULAR, HUMAN 100 UNIT/ML 3 ML VIAL SQ PRN ×2 (12:28→17:09)
[2016-11-25 16:00] VITALS: BP 140/70
[2016-11-25 17:02] VITALS: BP 135/93
[2016-11-25 19:50] VITALS: BP 151/90
[2016-11-25] MEDS: CEFTRIAXONE 2 G in IV D5W 100 ML IV SCH (21:37)
[2016-11-26] MEDS: *INSULIN REGULAR(HUMULIN R)HUM 100 UNIT/ML VIAL SQ PRN (00:16)
[2016-11-26] MEDS: HYDROMORPHONE 1 MG/1 ML DISP.SYRIN IV PRN ×3 (05:33→14:54)
[2016-11-26] MEDS: BLOOD SUGAR DIAGNOSTIC 1 EACH STRIP VI SCH ×3 (07:07→17:26)
[2016-11-26] MEDS: HYDROCODONE/APAP 10/325MG 1 EA TABLET PO PRN ×3 (07:08→17:26)
[2016-11-26 07:53] LABS: BASOPHILS # (AUTO) 0.1 /CMM (0.0-0.2); BASOPHILS % (AUTO) 0.4 % (0.0-2.0); DIFF TOTAL % 100 %; EOSINOPHILS # (AUTO) 0.2 /CMM (0.0-0.7); EOSINOPHILS % (AUTO) 1.9 % (0.0-6.0); HEMATOCRIT 26 % (39-51); HEMOGLOBIN 8.6 g/dL (13.5-17.5); LYMPHOCYTES # (AUTO) 1.5 /CMM (0.8-4.8); LYMPHOCYTES % (AUTO) 11.7 % (20.0-44.0); MEAN CORPUSCULAR HEMOGLOBIN 29 PG (26.0-33.0); MEAN CORPUSCULAR HGB CONC 33 g/dl (31.0-36.0); MEAN CORPUSCULAR VOLUME 89 fL (80-96); MONOCYTES # (AUTO) 1.1 /CMM (0.1-1.30); MONOCYTES % (AUTO) 8.2 % (2.0-12.0); NEUTROPHILS % (AUTO) 77.8 % (43.0-81.0); RED BLOOD CELL COUNT(AUTO) 2.92 MIL/uL (4.5-6.0); WHITE BLOOD COUNT (AUTO) 12.9 K/uL (4.3-11.0)
[2016-11-26 07:55] LABS: CALCIUM, SERUM 8.4 mg/dL (8.5-10.1); POTASSIUM 4.1 mmol/L (3.5-5.1)
[2016-11-26 08:00] VITALS: BP 171/93
[2016-11-26 08:18] LABS: PLATELET COUNT (AUTO) 1126 /CMM (150-450)
[2016-11-26] MEDS: ASCORBIC ACID 500 MG TABLET PO SCH (09:31)
[2016-11-26] MEDS: MULTIVITAMINS W-MINERALS 1 TAB TABLET PO SCH (09:31)
[2016-11-26] MEDS: ACIDOPHILUS/BULGARICUS 1 EACH TAB.CHEW PO SCH ×3 (09:31→17:25)
[2016-11-26] MEDS: PANTOPRAZOLE 40 MG TABLET.DR PO SCH (09:31)
[2016-11-26] MEDS: AMLODIPINE BESYLATE 10 MG TABLET PO SCH (09:31)
[2016-11-26] MEDS: BUPROPION XL 150 MG TAB.ER.24 PO SCH (09:32)
[2016-11-26] MEDS: BLOOD SUGAR DIAGNOSTIC 1 EACH STRIP IN SCH (09:32)
[2016-11-26] MEDS: FOLIC ACID 1 MG TABLET PO SCH (09:32)
[2016-11-26] MEDS: ASPIRIN 81 MG TAB.CHEW PO SCH (09:32)
[2016-11-26] MEDS: LISINOPRIL (10MG) 10 MG TABLET PO SCH ×2 (09:32→17:25)
[2016-11-26] MEDS: INSULIN DETEMIR 100 UNIT/ML CARTRIDGE SQ SCH ×2 (09:43→17:00)
[2016-11-26] MEDS: INSULIN REGULAR, HUMAN 100 UNIT/ML 3 ML VIAL SQ PRN ×2 (09:43→12:53)
[2016-11-26 11:18] LABS: LYMPHOCYTES % (MANUAL) 14 % (16-48)
[2016-11-26 11:19] LABS: PLATELET ESTIMATE INCREASED
[2016-11-26 13:35] VITALS: BP 150/83
[2016-11-26 16:00] VITALS: BP 135/77
[2016-11-26 17:25] VITALS: BP 136/56
== END 2016-11-26 18:14 | DRG 853 ==
LOC: ER 15:47 → TELE 19:11 → MED 11-17 11:41 → TELE 11-17 11:45 → MED 11-17 12:03
PROVIDERS: ADMIT Internal Medicine; ATTEND Internal Medicine
PROC: 0Q9N0ZZ Drainage of Right Metatarsal, Open Approach (ICD-10-PCS; 2016-11-17)
PROC: 0LBV0ZZ Excision of Right Foot Tendon, Open Approach (ICD-10-PCS; principal; 2016-11-17 11:38)
PROC: 0QBN0ZZ Excision of Right Metatarsal, Open Approach (ICD-10-PCS; 2016-11-20)
PROC: 30233N1 Transfusion of Nonautologous Red Blood Cells into Peripheral Vein, Percutaneous Approach (ICD-10-PCS; 2016-11-21)
PROC: 0QBN0ZZ Excision of Right Metatarsal, Open Approach (ICD-10-PCS; 2016-11-24)
PROC: 02HV33Z Insertion of Infusion Device into Superior Vena Cava, Percutaneous Approach (ICD-10-PCS; 2016-11-25)
PROC: B548ZZA Ultrasonography of Superior Vena Cava, Guidance (ICD-10-PCS; 2016-11-25)
DX: A41.9 Sepsis, unspecified organism (principal); N17.0 Acute kidney failure with tubular necrosis; A48.0 Gas gangrene; M72.6 Necrotizing fasciitis; E11.52 Type 2 diabetes mellitus with diabetic peripheral angiopathy with gangrene; L02.611 Cutaneous abscess of right foot; L03.115 Cellulitis of right lower limb; M86.8X7 Other osteomyelitis, ankle and foot; F33.2 Major depressive disorder, recurrent severe without psychotic features; I10 Essential (primary) hypertension; D64.9 Anemia, unspecified; Z79.4 Long term (current) use of insulin; D47.3 Essential (hemorrhagic) thrombocythemia; E11.621 Type 2 diabetes mellitus with foot ulcer; E11.65 Type 2 diabetes mellitus with hyperglycemia; E11.42 Type 2 diabetes mellitus with diabetic polyneuropathy; E78.5 Hyperlipidemia, unspecified; L97.519 Non-pressure chronic ulcer of other part of right foot with unspecified severity; Z98.84 Bariatric surgery status; D63.8 Anemia in other chronic diseases classified elsewhere; Z87.898 Personal history of other specified conditions; D72.829 Elevated white blood cell count, unspecified; E53.8 Deficiency of other specified B group vitamins; F10.20 Alcohol dependence, uncomplicated; Z91.19 Patient's noncompliance with other medical treatment and regimen; R65.20 Severe sepsis without septic shock
CPT/HCPCS: 36415; 71010-TC; 73610-TC; 73630-TC; 73700-TC; 80048-TC; 80053-TC; 80061-TC; 80076-TC; 80202-TC; 82306; 82728-TC; 82746; 82962-TC; 83540-TC; 83605-TC; 83615-TC; 83735-TC; 84100-TC; 84484-TC; 84550-TC; 85025-TC; 85045-TC; 85610-TC; 85652-TC; 85730-TC; 86140-TC; 86850-TC; 86901; 86921-TC; 87040-TC; 87070-TC; 87075-TC; 87081-TC; 87186-TC; 88305-TC; 88311-TC; 88312-TC; 93307-TC; 97001-TC; A4216; A4217; A4606; A6209; A6253; A6402; A6403; C1751; G6040-TC; J0696; J1170; J1815; J2250; J2270; J2405; J2543; J2704; J3010; J3370; J3490; J7030; J7040; J7050; J7060; P9016-BL; Z7610

== ENCOUNTER 2016-11-30 12:42 | Inpatient (IN) | payer MEDICARE ==
[~2016-11-30] VITALS: Ht 175.3 cm; Wt 73.0 kg
[~2016-11-30 12:42] MED LIST changes: -LINE600T2 PO; -METF500T7 PO
[2016-11-30 12:59] LABS: BASOPHILS # (AUTO) 0.1 /CMM (0.0-0.2); BASOPHILS % (AUTO) 0.9 % (0.0-2.0); DIFF TOTAL % 100 %; EOSINOPHILS # (AUTO) 0.2 /CMM (0.0-0.7); EOSINOPHILS % (AUTO) 2.3 % (0.0-6.0); HEMATOCRIT 28 % (39-51); HEMOGLOBIN 9.2 g/dL (13.5-17.5); LYMPHOCYTES # (AUTO) 1.5 /CMM (0.8-4.8); LYMPHOCYTES % (AUTO) 14.5 % (20.0-44.0); MEAN CORPUSCULAR HEMOGLOBIN 29 PG (26.0-33.0); MEAN CORPUSCULAR HGB CONC 33 g/dl (31.0-36.0); MEAN CORPUSCULAR VOLUME 88 fL (80-96); MONOCYTES # (AUTO) 0.5 /CMM (0.1-1.30); MONOCYTES % (AUTO) 4.7 % (2.0-12.0); NEUTROPHILS # (AUTO) 7.8 /CMM (1.8-8.9); NEUTROPHILS % (AUTO) 77.6 % (43.0-81.0); PLATELET COUNT (AUTO) 896 /CMM (150-450); RED BLOOD CELL COUNT(AUTO) 3.18 MIL/uL (4.5-6.0); WHITE BLOOD COUNT (AUTO) 10.1 K/uL (4.3-11.0)
[2016-11-30 13:09] LABS: CALCIUM, SERUM 8.7 mg/dL (8.5-10.1); CREATININE 1.2 mg/dL (0.6-1.3); POTASSIUM 3.8 mmol/L (3.5-5.1)
[2016-11-30 13:13] LABS: INR 1.02 (0.87-1.13); PROTHROMBIN TIME 10.7 SECS (9.5-12.7)
[2016-11-30 13:14] LABS: ALBUMIN 2.3 g/dL (3.4-5.0); BILIRUBIN,DIRECT 0.1 mg/dL (0.0-0.2); BILIRUBIN,TOTAL 0.2 mg/dL (0.2-1.0); INDIRECT BILIRUBIN 0.1 mg/dL (0.0-1.1)
[2016-11-30] MEDS ORDERED: MAGN400O6 PO (13:33)
[2016-11-30] MEDS ORDERED: INSU100I4 SQ (13:33)
[2016-11-30] MEDS ORDERED: NA P133E RC (13:33)
[2016-11-30] MEDS ORDERED: ZINC220T PO (13:33)
[2016-11-30] MEDS ORDERED: AMLO10TA2 PO (13:33)
[2016-11-30] MEDS ORDERED: ASCO-340 PO (13:33)
[2016-11-30] MEDS ORDERED: LISI-603 PO (13:33)
[2016-11-30] MEDS ORDERED: VIT1CAPS32 PO (13:33)
[2016-11-30] MEDS ORDERED: MULT-213 PO (13:33)
[2016-11-30] MEDS ORDERED: HYDR-548 PO (13:33)
[2016-11-30] MEDS ORDERED: BISA10SU8 RC (13:33)
[2016-11-30] MEDS ORDERED: BUPR-96 PO (13:33)
[2016-11-30] MEDS ORDERED: ACET-868 PO (13:33)
[2016-11-30 14:00] VITALS: BP 150/89
[2016-11-30] MEDS ORDERED: DEXTROSE 50%-WATER 50 ML DISP.SYRIN IV PRN ×2 (14:00→21:30)
[2016-11-30] MEDS ORDERED: HYDROCODONE/APAP 5/325MG 1 EACH TABLET PO PRN (14:00)
[2016-11-30] MEDS ORDERED: ZOLPIDEM TARTRATE 5 MG TABLET PO PRN (14:00)
[2016-11-30] MEDS ORDERED: ACETAMINOPHEN 325 MG TABLET PO PRN (14:00)
[2016-11-30] MEDS ORDERED: NA PHOS,M-B/NA PHOS,DI-BA 1 EA ENEMA RC PRN (14:00)
[2016-11-30] MEDS ORDERED: MAGNESIUM HYDROXIDE 30 ML UDC PO PRN (14:00)
[2016-11-30] MEDS ORDERED: INSULIN REGULAR, HUMAN 100 UNIT/ML 3 ML VIAL SQ PRN (14:00)
[2016-11-30] MEDS ORDERED: ONDANSETRON HCL/PF 4 MG/2 ML VIAL IVP PRN (14:00)
[2016-11-30] MEDS ORDERED: Z GUARD REMEDY 2 OZ OINT TP PRN (14:00)
[2016-11-30] MEDS ORDERED: BISACODYL SUPP (10 MG) 10 MG/SUPP.RECT SUPP.RECT RC PRN (14:00)
[2016-11-30] MEDS ORDERED: MAG HYDROX/AL HYDROX/SIMETH 30 ML UDC PO PRN (14:00)
[2016-11-30 16:00] VITALS: BP 174/103
[2016-11-30] MEDS ORDERED: IV NS 0.9% 250 ML IV ONE (16:41)
[2016-11-30] MEDS ORDERED: SECONDARY IV SET 1 EA INFUS.SET MC ONE ×2 (16:41→20:46)
[2016-11-30] MEDS ORDERED: IV SET PRIMARY PUMP SET 1 EA INFUS.SET MC ONE (16:41)
[2016-11-30] MEDS: CEFTRIAXONE 1 G in IV D5W 50 ML IV SCH (16:45)
[2016-11-30] MEDS: LISINOPRIL (20MG) 20 MG TABLET PO SCH (16:46)
[2016-11-30] MEDS: BLOOD SUGAR DIAGNOSTIC 1 EACH STRIP IN SCH ×2 (16:55→22:00)
[2016-11-30] MEDS: MORPHINE SULFATE INJ 2 MG/ML DISP.SYRIN IV PRN (17:45)
[2016-11-30] MEDS: HYDROCODONE/APAP 10/325MG 1 EA TABLET PO PRN ×2 (19:25→23:37)
[2016-11-30 20:00] VITALS: BP 158/91
[2016-11-30] MEDS: INSULIN DETEMIR 100 UNIT/ML CARTRIDGE SQ SCH (21:06)
[2016-11-30] MEDS: *INSULIN REGULAR(HUMULIN R)HUM 100 UNIT/ML VIAL SQ PRN (21:28)
[2016-11-30 22:00] VITALS: BP 158/91
[2016-11-30] MEDS: BLOOD SUGAR DIAGNOSTIC 1 EACH STRIP VI SCH (22:00)
[2016-12-01] MEDS: HYDROCODONE/APAP 10/325MG 1 EA TABLET PO PRN ×4 (04:16→23:12)
[2016-12-01] MEDS ORDERED: SECONDARY IV SET 1 EA INFUS.SET MC ONE (05:31)
[2016-12-01 06:25] LABS: ALBUMIN 2.2 g/dL (3.4-5.0); BILIRUBIN,TOTAL 0.1 mg/dL (0.2-1.0); CALCIUM, SERUM 8.9 mg/dL (8.5-10.1); PHOSPHORUS 4.2 mg/dL (2.5-4.9); POTASSIUM 3.6 mmol/L (3.5-5.1); TOTAL PROTEIN, SERUM 7.5 g/dL (6.4-8.2)
[2016-12-01 07:04] LABS: INR 0.99 (0.87-1.13); PROTHROMBIN TIME 10.7 SECS (9.5-12.7)
[2016-12-01] MEDS ORDERED: MIDAZOLAM HCL 2 MG/2ML VIAL ONE (07:14)
[2016-12-01] MEDS ORDERED: FENTANYL PF 100MCG/2ML AMPUL ONE ×2 (07:14→08:29)
[2016-12-01] MEDS ORDERED: LIDOCAINE HCL/PF 1% 30 ML SDV ONE (07:20)
[2016-12-01] MEDS: PANTOPRAZOLE 40 MG TABLET.DR PO SCH (07:30)
[2016-12-01] MEDS: BLOOD SUGAR DIAGNOSTIC 1 EACH STRIP IN SCH (07:30)
[2016-12-01] MEDS: BLOOD SUGAR DIAGNOSTIC 1 EACH STRIP VI SCH ×4 (07:30→21:32)
[2016-12-01 07:32] LABS: BASOPHILS # (AUTO) 0.1 /CMM (0.0-0.2); BASOPHILS % (AUTO) 1.5 % (0.0-2.0); DIFF TOTAL % 100 %; EOSINOPHILS # (AUTO) 0.3 /CMM (0.0-0.7); HEMATOCRIT 26 % (39-51); HEMOGLOBIN 8.6 g/dL (13.5-17.5); LYMPHOCYTES # (AUTO) 1.6 /CMM (0.8-4.8); LYMPHOCYTES % (AUTO) 19.2 % (20.0-44.0); MEAN CORPUSCULAR HEMOGLOBIN 29 PG (26.0-33.0); MEAN CORPUSCULAR HGB CONC 33 g/dl (31.0-36.0); MEAN CORPUSCULAR VOLUME 87 fL (80-96); MONOCYTES # (AUTO) 0.6 /CMM (0.1-1.30); MONOCYTES % (AUTO) 7.5 % (2.0-12.0); NEUTROPHILS # (AUTO) 5.8 /CMM (1.8-8.9); NEUTROPHILS % (AUTO) 68.8 % (43.0-81.0); PLATELET COUNT (AUTO) 773 /CMM (150-450); RED BLOOD CELL COUNT(AUTO) 2.97 MIL/uL (4.5-6.0); WHITE BLOOD COUNT (AUTO) 8.4 K/uL (4.3-11.0)
[2016-12-01] MEDS ORDERED: VANCOMYCIN 1 GM VIAL ONE (07:43)
[2016-12-01] MEDS ORDERED: Medication Not On Formulary EA (Vit C/Vitamin E Acetate/Cranb (Cranberry Concentrate Sof PO SCH (09:00)
[2016-12-01 09:10] VITALS: BP 158/93
[2016-12-01] MEDS: MULTIVITAMINS W-MINERALS 1 TAB TABLET PO SCH (09:20)
[2016-12-01] MEDS: LISINOPRIL (20MG) 20 MG TABLET PO SCH ×2 (09:20→16:34)
[2016-12-01] MEDS: ASCORBIC ACID 500 MG TABLET PO SCH (09:21)
[2016-12-01] MEDS: ZINC SULFATE 220 MG CAPSULE PO SCH (09:21)
[2016-12-01] MEDS: AMLODIPINE BESYLATE 10 MG TABLET PO SCH (09:21)
[2016-12-01] MEDS: INSULIN DETEMIR 100 UNIT/ML CARTRIDGE SQ SCH ×2 (09:27→21:39)
[2016-12-01] MEDS: BUPROPION XL 150 MG TAB.ER.24 PO SCH (10:42)
[2016-12-01] MEDS: INSULIN REGULAR, HUMAN 100 UNIT/ML 3 ML VIAL SQ PRN (12:16)
[2016-12-01] MEDS ORDERED: ANESTHESIA TRAY IN PYXIS 1 EA TRAY MC ONE ×2 (14:09→20:38)
[2016-12-01 16:00] VITALS: BP 153/87
[2016-12-01] MEDS: CEFTRIAXONE 1 G in IV D5W 50 ML IV SCH (16:35)
[2016-12-01] MEDS: MORPHINE SULFATE INJ 2 MG/ML DISP.SYRIN IV PRN (19:36)
[2016-12-01 19:38] VITALS: BP 151/80
[2016-12-01 20:27] VITALS: BP 151/80
[2016-12-01] MEDS: *INSULIN REGULAR(HUMULIN R)HUM 100 UNIT/ML VIAL SQ PRN (21:39)
[2016-12-02] VITALS (9 sets, daily range): BP systolic 120–161; BP diastolic 68–86
[2016-12-02] MEDS: HYDROCODONE/APAP 10/325MG 1 EA TABLET PO PRN ×5 (03:19→22:14)
[2016-12-02] MEDS: INSULIN REGULAR, HUMAN 100 UNIT/ML 3 ML VIAL SQ PRN ×3 (05:52→16:49)
[2016-12-02] MEDS: BLOOD SUGAR DIAGNOSTIC 1 EACH STRIP VI SCH ×4 (06:33→21:27)
[2016-12-02 06:45] LABS: BASOPHILS # (AUTO) 0.1 /CMM (0.0-0.2); BASOPHILS % (AUTO) 0.7 % (0.0-2.0); DIFF TOTAL % 100 %; EOSINOPHILS # (AUTO) 0.2 /CMM (0.0-0.7); EOSINOPHILS % (AUTO) 1.7 % (0.0-6.0); HEMATOCRIT 25 % (39-51); HEMOGLOBIN 8.3 g/dL (13.5-17.5); LYMPHOCYTES # (AUTO) 1.2 /CMM (0.8-4.8); LYMPHOCYTES % (AUTO) 11.1 % (20.0-44.0); MEAN CORPUSCULAR HEMOGLOBIN 29 PG (26.0-33.0); MEAN CORPUSCULAR HGB CONC 33 g/dl (31.0-36.0); MEAN CORPUSCULAR VOLUME 88 fL (80-96); MONOCYTES # (AUTO) 0.6 /CMM (0.1-1.30); MONOCYTES % (AUTO) 5.6 % (2.0-12.0); NEUTROPHILS # (AUTO) 8.8 /CMM (1.8-8.9); NEUTROPHILS % (AUTO) 80.9 % (43.0-81.0); PLATELET COUNT (AUTO) 644 /CMM (150-450); RED BLOOD CELL COUNT(AUTO) 2.84 MIL/uL (4.5-6.0); WHITE BLOOD COUNT (AUTO) 10.9 K/uL (4.3-11.0)
[2016-12-02 06:48] LABS: CALCIUM, SERUM 8.6 mg/dL (8.5-10.1); CREATININE 1.1 mg/dL (0.6-1.3)
[2016-12-02] MEDS: PANTOPRAZOLE 40 MG TABLET.DR PO SCH (07:45)
[2016-12-02] MEDS: AMLODIPINE BESYLATE 10 MG TABLET PO SCH (08:31)
[2016-12-02] MEDS: ZINC SULFATE 220 MG CAPSULE PO SCH (08:31)
[2016-12-02] MEDS: MULTIVITAMINS W-MINERALS 1 TAB TABLET PO SCH (08:31)
[2016-12-02] MEDS: LISINOPRIL (20MG) 20 MG TABLET PO SCH ×2 (08:31→16:12)
[2016-12-02] MEDS: BUPROPION XL 150 MG TAB.ER.24 PO SCH (08:31)
[2016-12-02] MEDS: ASCORBIC ACID 500 MG TABLET PO SCH (08:32)
[2016-12-02] MEDS: INSULIN DETEMIR 100 UNIT/ML CARTRIDGE SQ SCH ×2 (08:35→21:28)
[2016-12-02] MEDS: MORPHINE SULFATE INJ 2 MG/ML DISP.SYRIN IV PRN ×3 (10:09→19:32)
[2016-12-02] MEDS: CEFTRIAXONE 1 G in IV D5W 50 ML IV SCH (16:11)
[2016-12-02] MEDS ORDERED: BLOOD IV SET 1 EA INFUS.SET MC ONE (17:01)
[2016-12-02] MEDS ORDERED: IV NS 0.9% 250 ML IV ONE (17:01)
[2016-12-02] MEDS: *INSULIN REGULAR(HUMULIN R)HUM 100 UNIT/ML VIAL SQ PRN (21:29)
[2016-12-03] MEDS: HYDROCODONE/APAP 10/325MG 1 EA TABLET PO PRN ×5 (03:08→23:31)
[2016-12-03] MEDS: MORPHINE SULFATE INJ 2 MG/ML DISP.SYRIN IV PRN ×4 (06:03→20:46)
[2016-12-03] MEDS: BLOOD SUGAR DIAGNOSTIC 1 EACH STRIP VI SCH ×4 (06:41→22:21)
[2016-12-03] MEDS: INSULIN DETEMIR 100 UNIT/ML CARTRIDGE SQ SCH ×2 (09:00→22:30)
[2016-12-03] MEDS: MULTIVITAMINS W-MINERALS 1 TAB TABLET PO SCH (09:05)
[2016-12-03] MEDS: LISINOPRIL (20MG) 20 MG TABLET PO SCH ×2 (09:05→16:48)
[2016-12-03] MEDS: AMLODIPINE BESYLATE 10 MG TABLET PO SCH (09:05)
[2016-12-03] MEDS: ZINC SULFATE 220 MG CAPSULE PO SCH (09:06)
[2016-12-03] MEDS: PANTOPRAZOLE 40 MG TABLET.DR PO SCH (09:06)
[2016-12-03] MEDS: BUPROPION XL 150 MG TAB.ER.24 PO SCH (09:06)
[2016-12-03] MEDS: ASCORBIC ACID 500 MG TABLET PO SCH (09:06)
[2016-12-03 12:47] LABS: BASOPHILS # (AUTO) 0.1 /CMM (0.0-0.2); BASOPHILS % (AUTO) 0.9 % (0.0-2.0); DIFF TOTAL % 100 %; EOSINOPHILS # (AUTO) 0.2 /CMM (0.0-0.7); EOSINOPHILS % (AUTO) 2.5 % (0.0-6.0); HEMATOCRIT 29 % (39-51); HEMOGLOBIN 9.8 g/dL (13.5-17.5); LYMPHOCYTES # (AUTO) 1.6 /CMM (0.8-4.8); LYMPHOCYTES % (AUTO) 18.3 % (20.0-44.0); MEAN CORPUSCULAR HEMOGLOBIN 29 PG (26.0-33.0); MEAN CORPUSCULAR HGB CONC 34 g/dl (31.0-36.0); MEAN CORPUSCULAR VOLUME 87 fL (80-96); MONOCYTES # (AUTO) 0.7 /CMM (0.1-1.30); MONOCYTES % (AUTO) 7.5 % (2.0-12.0); NEUTROPHILS # (AUTO) 6.2 /CMM (1.8-8.9); NEUTROPHILS % (AUTO) 70.8 % (43.0-81.0); PLATELET COUNT (AUTO) 611 /CMM (150-450); RED BLOOD CELL COUNT(AUTO) 3.35 MIL/uL (4.5-6.0); WHITE BLOOD COUNT (AUTO) 8.8 K/uL (4.3-11.0)
[2016-12-03] MEDS: CEFTRIAXONE 1 G in IV D5W 50 ML IV SCH (15:56)
[2016-12-03] MEDS: INSULIN REGULAR, HUMAN 100 UNIT/ML 3 ML VIAL SQ PRN (17:00)
[2016-12-03 20:00] VITALS: BP 126/76
[2016-12-03] MEDS: *INSULIN REGULAR(HUMULIN R)HUM 100 UNIT/ML VIAL SQ PRN (22:31)
[2016-12-04] MEDS: MORPHINE SULFATE INJ 2 MG/ML DISP.SYRIN IV PRN ×4 (01:20→21:42)
[2016-12-04] MEDS: BLOOD SUGAR DIAGNOSTIC 1 EACH STRIP VI SCH ×4 (06:54→21:35)
[2016-12-04] MEDS: HYDROCODONE/APAP 10/325MG 1 EA TABLET PO PRN ×4 (07:27→23:46)
[2016-12-04 08:00] VITALS: BP 127/73
[2016-12-04] MEDS: AMLODIPINE BESYLATE 10 MG TABLET PO SCH (09:00)
[2016-12-04] MEDS: LISINOPRIL (20MG) 20 MG TABLET PO SCH ×2 (09:00→16:11)
[2016-12-04] MEDS: MULTIVITAMINS W-MINERALS 1 TAB TABLET PO SCH (09:41)
[2016-12-04] MEDS: BUPROPION XL 150 MG TAB.ER.24 PO SCH (09:41)
[2016-12-04] MEDS: ASCORBIC ACID 500 MG TABLET PO SCH (09:41)
[2016-12-04] MEDS: ZINC SULFATE 220 MG CAPSULE PO SCH (09:41)
[2016-12-04] MEDS: PANTOPRAZOLE 40 MG TABLET.DR PO SCH (09:41)
[2016-12-04] MEDS: INSULIN DETEMIR 100 UNIT/ML CARTRIDGE SQ SCH ×2 (09:44→21:36)
[2016-12-04] MEDS: INSULIN REGULAR, HUMAN 100 UNIT/ML 3 ML VIAL SQ PRN ×2 (12:49→21:36)
[2016-12-04 16:00] VITALS: BP 150/91
[2016-12-04 16:09] VITALS: BP 150/91
[2016-12-04] MEDS: CEFTRIAXONE 1 G in IV D5W 50 ML IV SCH (16:11)
[2016-12-04] MEDS: ACIDOPHILUS/BULGARICUS 1 EACH TAB.CHEW PO SCH (16:11)
[2016-12-04 20:31] VITALS: BP 163/94
[2016-12-04] MEDS: VORICONAZOLE 200 MG TABLET PO SCH (21:32)
[2016-12-05] MEDS: MORPHINE SULFATE INJ 2 MG/ML DISP.SYRIN IV PRN ×3 (01:55→15:03)
[2016-12-05] MEDS: HYDROCODONE/APAP 10/325MG 1 EA TABLET PO PRN ×2 (06:00→10:57)
[2016-12-05] MEDS: BLOOD SUGAR DIAGNOSTIC 1 EACH STRIP VI SCH ×2 (06:43→11:26)
[2016-12-05 08:00] VITALS: BP 152/82
[2016-12-05] MEDS: VORICONAZOLE 200 MG TABLET PO SCH (08:56)
[2016-12-05 08:57] VITALS: BP 152/82
[2016-12-05] MEDS: AMLODIPINE BESYLATE 10 MG TABLET PO SCH (08:57)
[2016-12-05] MEDS: MULTIVITAMINS W-MINERALS 1 TAB TABLET PO SCH (08:57)
[2016-12-05] MEDS: LISINOPRIL (20MG) 20 MG TABLET PO SCH (08:57)
[2016-12-05] MEDS: ZINC SULFATE 220 MG CAPSULE PO SCH (08:57)
[2016-12-05] MEDS: ASCORBIC ACID 500 MG TABLET PO SCH (08:57)
[2016-12-05] MEDS: BUPROPION XL 150 MG TAB.ER.24 PO SCH (08:57)
[2016-12-05] MEDS: ACIDOPHILUS/BULGARICUS 1 EACH TAB.CHEW PO SCH ×2 (08:57→12:51)
[2016-12-05] MEDS: PANTOPRAZOLE 40 MG TABLET.DR PO SCH (08:57)
[2016-12-05] MEDS: INSULIN DETEMIR 100 UNIT/ML CARTRIDGE SQ SCH (09:08)
[2016-12-05] MEDS: INSULIN REGULAR, HUMAN 100 UNIT/ML 3 ML VIAL SQ PRN (11:30)
[2016-12-05] MEDS ORDERED: Morphine Sulfate IV (11:58)
[2016-12-05] MEDS ORDERED: CEFT1FRO2 IV (11:58)
[2016-12-05] MEDS ORDERED: VORI200T PO (11:58)
[2016-12-05] MEDS: CEFTRIAXONE 1 G in IV D5W 50 ML IV SCH (15:02)
== END 2016-12-05 15:50 | DRG 463 ==
LOC: ER 12:45 → MEDSG2 13:51
PROVIDERS: ADMIT Family Medicine; ATTEND Family Medicine
PROC: 0QBN0ZZ Excision of Right Metatarsal, Open Approach (ICD-10-PCS; 2016-12-01)
PROC: 0HRMXK3 Replacement of Right Foot Skin with Nonautologous Tissue Substitute, Full Thickness, External Approach (ICD-10-PCS; principal; 2016-12-01 07:40)
PROC: 30233N1 Transfusion of Nonautologous Red Blood Cells into Peripheral Vein, Percutaneous Approach (ICD-10-PCS; 2016-12-02)
DX: M86.8X7 Other osteomyelitis, ankle and foot (principal); N17.0 Acute kidney failure with tubular necrosis; L03.115 Cellulitis of right lower limb; L02.611 Cutaneous abscess of right foot; E11.52 Type 2 diabetes mellitus with diabetic peripheral angiopathy with gangrene; E11.621 Type 2 diabetes mellitus with foot ulcer; E11.40 Type 2 diabetes mellitus with diabetic neuropathy, unspecified; E11.65 Type 2 diabetes mellitus with hyperglycemia; D63.8 Anemia in other chronic diseases classified elsewhere; E11.42 Type 2 diabetes mellitus with diabetic polyneuropathy; E53.8 Deficiency of other specified B group vitamins; E78.5 Hyperlipidemia, unspecified; F32.9 Major depressive disorder, single episode, unspecified; I10 Essential (primary) hypertension; D47.3 Essential (hemorrhagic) thrombocythemia; Z98.84 Bariatric surgery status; L97.519 Non-pressure chronic ulcer of other part of right foot with unspecified severity; Z87.898 Personal history of other specified conditions
CPT/HCPCS: 36415; 71010-TC; 80048-TC; 80053-TC; 80076-TC; 82962-TC; 83735-TC; 84100-TC; 85025-TC; 85610-TC; 85730-TC; 86850-TC; 86901; 86921-TC; 87070-TC; 87081-TC; A4606; A6402; J0696; J1815; J2250; J2270; J3010; J3370; J3490; J7050; J7060; P9016-BL; Z7610

== ENCOUNTER 2016-12-11 08:25 | Outpatient (CLI) | payer MEDICARE ==
[~2016-12-11 08:25] MED LIST changes: +ACET-868 PO; +AMLO10TA2 PO; +ASCO-340 PO; +BISA10SU8 RC; -BLOO-668 IN; +BUPR-96 PO; +CEFT1FRO2 IV; +HYDR-548 PO; +INSU100I4 SQ; -INSU100V11 SQ; +LISI-603 PO; +MAGN400O6 PO; +MULT-213 PO; +Morphine Sulfate IV; +NA P133E RC; +VIT1CAPS32 PO; +VORI200T PO; +ZINC220T PO
== END 2016-12-11 23:59 ==
LOC: WOU 08:25
PROVIDERS: ATTEND Podiatrist Foot & Ankle Surgery
DX: Z48.817 Encounter for surgical aftercare following surgery on the skin and subcutaneous tissue (principal); E11.621 Type 2 diabetes mellitus with foot ulcer; S93.314A Dislocation of tarsal joint of right foot, initial encounter; X58.XXXA Exposure to other specified factors, initial encounter; Y92.89 Other specified places as the place of occurrence of the external cause; E11.42 Type 2 diabetes mellitus with diabetic polyneuropathy; R60.0 Localized edema; E11.69 Type 2 diabetes mellitus with other specified complication; M86.671 Other chronic osteomyelitis, right ankle and foot; L97.414 Non-pressure chronic ulcer of right heel and midfoot with necrosis of bone
CPT/HCPCS: 73630-TC; 97606-TC; A6402

== ENCOUNTER 2016-12-18 09:48 | Outpatient (CLI) | payer MEDICARE | END 2016-12-18 23:59 | disposition home health service (06) | LOC: WOU 09:48 | PROVIDERS: ATTEND Podiatrist Foot & Ankle Surgery | DX: E11.621 Type 2 diabetes mellitus with foot ulcer (principal); L97.414 Non-pressure chronic ulcer of right heel and midfoot with necrosis of bone; E11.69 Type 2 diabetes mellitus with other specified complication; M24.374 Pathological dislocation of right foot, not elsewhere classified; B37.89 Other sites of candidiasis; Z91.19 Patient's noncompliance with other medical treatment and regimen; Z83.3 Family history of diabetes mellitus; Z98.84 Bariatric surgery status; E55.9 Vitamin D deficiency, unspecified; E11.42 Type 2 diabetes mellitus with diabetic polyneuropathy | CPT/HCPCS: 11044; 11047; 97606; A6402 ==

== ENCOUNTER 2016-12-22 13:02 | Inpatient (IN) | payer MEDICARE ==
[~2016-12-22] VITALS: Ht 177.8 cm; Wt 74.8 kg
--- NOTE | 2016-12-22 13:42 | NUR ---
AAOX3, BIB EMS FROM [facility] C/O R L E PAIN UNMANAGED BY NORCO 10-325 AT HOME. RR IS EVEN AND UNLABORED WITH NAD NOTED. SKIN IS WARM AND NON DIAPHORETIC. AWAITING MD FOR EVAL.
[2016-12-22 14:04] LABS: BASOPHILS % (AUTO) 0.4 % (0.0-2.0); EOSINOPHILS # (AUTO) 0.4 /CMM (0.0-0.7); EOSINOPHILS % (AUTO) 3.9 % (0.0-6.0); HEMATOCRIT 28 % (39-51); LYMPHOCYTES % (AUTO) 21.8 % (20.0-44.0); MEAN CORPUSCULAR HEMOGLOBIN 28 PG (26.0-33.0); MEAN CORPUSCULAR HGB CONC 32 g/dl (31.0-36.0); MEAN CORPUSCULAR VOLUME 86 fL (80-96); MONOCYTES # (AUTO) 0.6 /CMM (0.1-1.30); MONOCYTES % (AUTO) 6.9 % (2.0-12.0); NEUTROPHILS # (AUTO) 6.1 /CMM (1.8-8.9); PLATELET COUNT (AUTO) 561 /CMM (150-450); RDW COEFFICIENT OF VARIATION 13.1 (11.5-15.0); RED BLOOD CELL COUNT(AUTO) 3.23 MIL/uL (4.5-6.0); WHITE BLOOD COUNT (AUTO) 9.1 K/uL (4.3-11.0)
[2016-12-22 14:12] LABS: POTASSIUM 4.1 mmol/L (3.5-5.1)
--- NOTE | 2016-12-22 14:36 | NUR ---
DR.TIM LINDA ESPINOSA FITTER'S ASSISTANT
--- NOTE | 2016-12-22 14:37 | NUR ---
CALLED NURSING SUP. FOR MS BED
--- NOTE | 2016-12-22 14:37 | NUR ---
PT WILL BE GOING TO MS 322-2 FOR DIABETIC FOOT ULCER
[2016-12-22] MEDS ORDERED: DOCU250C75 PO (14:55)
[2016-12-22] MEDS ORDERED: VORI200T4 PO (14:55)
[2016-12-22] MEDS ORDERED: ACET-2605 PO (14:55)
[2016-12-22] MEDS ORDERED: AMIN30LI27 PO (14:55)
[2016-12-22] MEDS ORDERED: CEFT1VIA6 IV (14:55)
[2016-12-22] MEDS ORDERED: CRAN425C PO (14:55)
[2016-12-22] MEDS ORDERED: VITA200C22 PO (14:55)
[2016-12-22] MEDS ORDERED: oxyCODONE/APAP (5/325 MG) 1 UDTAB TABLET ONE (14:58)
[2016-12-22] MEDS ORDERED: oxyCODONE/APAP (5/325 MG) 1 UDTAB TABLET PO ONE (15:00)
--- NOTE | 2016-12-22 15:38 | NUR ---
[facility] REPAGED
--- NOTE | 2016-12-22 16:30 | NUR ---
Patient is resting comfortably in bed with eyes closed. Easily aroused. VSS
--- NOTE | 2016-12-22 17:33 | NUR ---
Report given to JONATHON Bardales for [facility] MS 322-2
--- NOTE | 2016-12-22 17:55 | NUR ---
MS RN NOTE PATIENT RECEIVED FROM ER. NO SOB OR DISTRESS NOTED. PATIENT DENIES SIGNIFICANT PAIN AT THIS TIME. IV CHECKED AND PATENT. PATIENT REFUSED TO HAVE BELONGINGS CHECKED, STATES "THEY ALREADY DID THAT IN ER." UNABLE TO TAKE PICTURES OF FOOT WOUND IT IS COVERED IN A DRESSING TO BE REMOVED BY THE MD. BED IN A LOW POSITION, CALL LIGHT WITHIN PATIENT REACH. WILL APPLY WOUND VAC ORDERED WHEN ABLE.
[2016-12-22] MEDS ORDERED: BISACODYL SUPP (10 MG) 10 MG/SUPP.RECT SUPP.RECT RC PRN (18:00)
[2016-12-22] MEDS ORDERED: NA PHOS,M-B/NA PHOS,DI-BA 1 EA ENEMA RC PRN (18:00)
[2016-12-22 18:15] VITALS: BP 145/88
[2016-12-22] MEDS ORDERED: SECONDARY IV SET 1 EA INFUS.SET MC ONE (18:17)
[2016-12-22] MEDS ORDERED: IV SET PRIMARY PUMP SET 1 EA INFUS.SET MC ONE (18:17)
[2016-12-22] MEDS ORDERED: ACETAMINOPHEN 325 MG TABLET PO PRN (18:30)
[2016-12-22] MEDS ORDERED: ONDANSETRON HCL/PF 4 MG/2 ML VIAL IVP PRN (18:30)
[2016-12-22] MEDS: oxyCODONE IR immediate release 5 MG CAPSULE PO PRN (18:36)
[2016-12-22] MEDS: CEFTRIAXONE 1 G in IV D5W 50 ML IV SCH (18:38)
--- NOTE | 2016-12-22 19:30 | NUR ---
MS RN NOTES RECEIVED AWAKE, A/O X4,SITTING ON EDGE OF BED,BREATHING REGULAR,NOT IN ANY FORM OF DISTRESS.WITH LEFT UPPR ARM PICC LINE INTACT AND PATENT.RIGHT FOOT WITH DRESSING INTACT AND DRY.ABLE TO AMBULATE.INSTRUCTED NPO POST [place] FOR DEBRIDEMENT IN THE MORNING BY DR CONKLIN.NO PAIN AT THE MOMENT.CALL LIGHT IN REACH,NEEDS ANTICIPATED.
--- NOTE | 2016-12-22 19:34 | NUR ---
MS RN CLOSING NOTES NO SIGNIFICANT CHANGES IN PATIENT CONDITION THROUGHOUT THE SHIFT. PAIN MEDS ADMINISTERED AND WOUND VAC APPLIED AT 125 PER MD ORDER. BED IN A LOW POSITION, CALL LIGHT WITHIN PATIENT REACH. ENDORSED FOR LUIS.
[2016-12-22 20:00] VITALS: BP 140/84
[2016-12-22] MEDS ORDERED: DEXTROSE 50%-WATER 50 ML DISP.SYRIN IV PRN (20:00)
--- NOTE | 2016-12-22 21:00 | NUR ---
MS RN NOTES REFUSED COLACE PO FOR CONSTIPATION.CLAIMED HE HAD BM ALREADY 3X.
[2016-12-22] MEDS: VORICONAZOLE 200 MG TABLET PO SCH (21:18)
[2016-12-22] MEDS: DOCUSATE SODIUM 250 MG CAPSULE PO SCH (21:19)
[2016-12-22] MEDS: HYDROMORPHONE 1 MG/1 ML DISP.SYRIN IV PRN (21:23)
--- NOTE | 2016-12-22 21:23 | NUR ---
MS RN NOTES PAIN MANAGEMENT C/O PAIN VIA RIGHT FOOT,MEDICATED WITH DILAUDID 1MG IV FOR PAIN SCALE 9/10.WILL MONITOR FOR RELIEF
[2016-12-22] MEDS: BLOOD SUGAR DIAGNOSTIC 1 EACH STRIP IN SCH (22:08)
[2016-12-22] MEDS: INSULIN REGULAR, HUMAN 100 UNIT/ML 3 ML VIAL SQ PRN (22:15)
[2016-12-22] MEDS: INSULIN DETEMIR 100 UNIT/ML CARTRIDGE SQ SCH (22:23)
--- NOTE | 2016-12-22 22:30 | NUR ---
MS RN NOTES ACCU-CHECK BLOOD SUGAR CHECK 186,COVERED WITH NOVOLOG 3 UNITS PER SLIDING SCALE.
--- NOTE | 2016-12-22 22:30 | NUR ---
MS RN NOTES ALSO GIVEN LEVEMIR 25 UNITS Q HS ORDERED, SNACKS PROVIDED.NPO AFTER MIDNIGHT FOR RIGHT FOOT DEBRIDEMENT IN THE MORNING
[2016-12-23] MEDS: HYDROMORPHONE 1 MG/1 ML DISP.SYRIN IV PRN ×5 (00:20→20:44)
--- NOTE | 2016-12-23 00:20 | NUR ---
MS RN NOTES PAIN MANAGEMENT AWAKE,C/O PAIN ON RIGHT FOOT 8/10 ON PAIN SCALE,MEDICATED WITH DILAUDID 1MG IV ORDERED.
--- NOTE | 2016-12-23 03:00 | NUR ---
MS RN NOTES SLEEPING,NOT IN ANY FORM OF DISTRESS.
--- NOTE | 2016-12-23 04:15 | NUR ---
MS RN NOTES AWAKE,ASKING FOR PAIN MEDICINE.NURSE ASSIGN PREPARING PAIN MEDS AND HE CALL AGAIN SAYING FEELING WEAK.WENT TO CHECK ON HIM RIGHT AWAY,SKIN COLD TO THE TOUCH.
--- NOTE | 2016-12-23 04:20 | NUR ---
MS RN NOTES ACCU-CHECK BLOOD SUGAR CHECK 29.
--- NOTE | 2016-12-23 04:25 | NUR ---
MS RN NOTES D50 1 AMPULE GIVEN RIGHT AWAY VIA PICC LINE.
--- NOTE | 2016-12-23 04:45 | NUR ---
MS RN NOTES VITAL SIGNS BP 163/85,PULSE-82,RR-20,TEMP-97.2O2 SAT 97%.
--- NOTE | 2016-12-23 04:45 | NUR ---
MS RN NOTES BLOOD SUAGR RE CHECK AND IT WAS 124,PATIENT CLAIMED HE FEEL BETTER.
--- NOTE | 2016-12-23 04:47 | NUR ---
MS RN NOTES PAIN MANAGEMENT C/O PAIN 8/10 ON PAIN SCALE VIA RIGHT FOOT,MEDICATED WITH DILAUDID 1MG IVP ORDERED.
--- NOTE | 2016-12-23 06:30 | NUR ---
MS RN NOTES FEELING BETTER,PAIN MANAGEMENT EFFECTIVE,OFFERED TO RECHECK BLOOD SUGAR BUT REFUSED.CLAIMED HE FEELS BETTER.TRANSFERRED TO ROOM 208 MS FLOOR TO MAKE ROOM FOR TELE PATIENTS ADMISSION.ENDORSED TO ERLINDA FOR LUIS
--- NOTE | 2016-12-23 07:00 | NUR ---
RN NOTES: PATIENT'S 0730 ACCUCHECK NOT ABLE TO BE TAKEN DUE TO PATIENT BEING IN OR AT THIS TIME.
[2016-12-23] MEDS: BLOOD SUGAR DIAGNOSTIC 1 EACH STRIP IN SCH ×4 (07:30→22:02)
--- NOTE | 2016-12-23 07:49 | NUR ---
RN NOTES PT CURRENTLY IN OR FOR SCHEDULED RIGHT FOOT DEBRIDEMENT. WILL AWAIT RETURN TO ROOM.
[2016-12-23] MEDS ORDERED: FENTANYL PF 100MCG/2ML AMPUL ONE ×2 (08:02→09:04)
[2016-12-23] MEDS ORDERED: VANCOMYCIN 1 GM VIAL ONE (08:28)
--- NOTE | 2016-12-23 08:37 | NUR ---
WOUND CARE CONSULT WOUND CARE RECEIVED CONSULT FOR PATIENT. WOUND CARE WILL DEFER TO DPM DR MUIR AT THIS TIME, SILVIA IS 19. WOUND CARE WILL ASSIST PRN IF REQUESTED.
[2016-12-23] MEDS ORDERED: CEFTRIAXONE 1 G VIAL IV SCH (09:00)
[2016-12-23] MEDS: MAGNESIUM HYDROXIDE 30 ML UDC PO SCH ×2 (09:00→16:26)
--- NOTE | 2016-12-23 09:27 | NUR ---
RN NOTES PT BACK IN THE ROOM.VS STABLE. PER RECOVERY NURSE, PT GIVEN DILAUDID @ 9AM, BUT PT STILL VERBALIZES PAIN @ 7/10. WILL ADMINISTER prN nORCO. OK TO RESUME ALL DIET AND MED ORDERS PRIOR TO SURGERY. NOTED AND CARRIED OUT. NOTED WITH CAST ON RIGHT FOOT; INTACT- WITH ONGOING WOUND VAC. WILL CONTINUE TO MONITOR Addendum: 12/23/16 at 1951 by MICHAEL GREENE RN RN NOTES PT BACK IN THE ROOM.VS STABLE. PER RECOVERY NURSE, PT GIVEN DILAUDID @ 9AM, BUT PT STILL VERBALIZES PAIN @ 7/10. WILL ADMINISTER prN OXY IR. OK TO RESUME ALL DIET AND MED ORDERS PRIOR TO SURGERY. NOTED AND CARRIED OUT. NOTED WITH CAST ON RIGHT FOOT; INTACT- WITH ONGOING WOUND VAC. WILL CONTINUE TO MONITOR
[2016-12-23] MEDS: AMLODIPINE BESYLATE 10 MG TABLET PO SCH (09:37)
[2016-12-23] MEDS: LISINOPRIL (20MG) 20 MG TABLET PO SCH ×2 (09:37→16:35)
[2016-12-23] MEDS: oxyCODONE IR immediate release 5 MG CAPSULE PO PRN ×3 (09:37→23:26)
[2016-12-23] MEDS: BUPROPION XL 150 MG TAB.ER.24 PO SCH (09:37)
[2016-12-23] MEDS: VORICONAZOLE 200 MG TABLET PO SCH ×2 (09:38→22:02)
[2016-12-23 09:41] VITALS: BP 162/85
[2016-12-23] MEDS: INSULIN REGULAR, HUMAN 100 UNIT/ML 3 ML VIAL SQ PRN ×3 (11:44→22:08)
[2016-12-23 12:10] LABS: BASOPHILS % (AUTO) 0.4 % (0.0-2.0); EOSINOPHILS # (AUTO) 0.3 /CMM (0.0-0.7); EOSINOPHILS % (AUTO) 2.5 % (0.0-6.0); HEMATOCRIT 28 % (39-51); HEMOGLOBIN 9.3 g/dL (13.5-17.5); LYMPHOCYTES # (AUTO) 1.3 /CMM (0.8-4.8); LYMPHOCYTES % (AUTO) 12.1 % (20.0-44.0); MEAN CORPUSCULAR HEMOGLOBIN 28 PG (26.0-33.0); MEAN CORPUSCULAR HGB CONC 33 g/dl (31.0-36.0); MEAN CORPUSCULAR VOLUME 86 fL (80-96); MONOCYTES # (AUTO) 0.6 /CMM (0.1-1.30); MONOCYTES % (AUTO) 5.9 % (2.0-12.0); NEUTROPHILS # (AUTO) 8.5 /CMM (1.8-8.9); NEUTROPHILS % (AUTO) 79.1 % (43.0-81.0); PLATELET COUNT (AUTO) 561 /CMM (150-450); RDW COEFFICIENT OF VARIATION 14.3 (11.5-15.0); RED BLOOD CELL COUNT(AUTO) 3.26 MIL/uL (4.5-6.0); WHITE BLOOD COUNT (AUTO) 10.8 K/uL (4.3-11.0)
[2016-12-23 12:23] LABS: INR 0.95 (0.87-1.13); PROTHROMBIN TIME 10.3 SECS (9.5-12.7)
[2016-12-23 12:28] LABS: ALBUMIN 2.7 g/dL (3.4-5.0); BILIRUBIN,TOTAL 0.1 mg/dL (0.2-1.0); CALCIUM, SERUM 8.7 mg/dL (8.5-10.1); CREATININE 1.2 mg/dL (0.6-1.3); MAGNESIUM 1.8 mg/dL (1.8-2.4); PHOSPHORUS 4.4 mg/dL (2.5-4.9); POTASSIUM 4.1 mmol/L (3.5-5.1)
--- NOTE | 2016-12-23 13:03 | NUR ---
WOUND CARE CONSULT: PT HAS [employer]CI VAC TO RT FOOT AT 125mmHg CONTINUOUS SETTING. NO DRAINAGE IN CANISTER. VAC FUNCTIONING WELL. PT NOTED TO HAVE CAST ON RT LOWER EXTREMITY. WILL SEE PRN.
--- NOTE | 2016-12-23 14:00 | NUR ---
RN NOTES PT SEEN BY PHYSICAL THERAPY FOR EVAL BUT REFUSED IT AT THIS TIME.EDUCATED ABOUT BENEFITS OF THERAPY. CONTINUED TO REFUSE. PER PT, BEST TO KEEP RIGHT FOOT NWB AT THIS TIME. PT VERBALIZED UNDERSTANDING
[2016-12-23 16:00] VITALS: BP 145/85
[2016-12-23 17:03] LABS: THYROID STIMULATING HORMONE 1.526 uIU/mL (0.358-3.74)
--- NOTE | 2016-12-23 18:00 | NUR ---
RN NOTES PT IN BED. AWAKE, ALERT, ORIENTED X 3. IN NO APPARENT DISTRESS. PAIN WELL MANAGED AT THIS TIME. CAST AND WOUND DRESSING INTACT, WITH ONGOING WOUND VAC. WILL ENDORSE TO ONCOMING SHIFT
[2016-12-23] MEDS ORDERED: SECONDARY IV SET 1 EA INFUS.SET MC ONE (18:03)
[2016-12-23] MEDS ORDERED: IV NS 0.9% 250 ML IV ONE (18:03)
[2016-12-23] MEDS ORDERED: IV SET PRIMARY PUMP SET 1 EA INFUS.SET MC ONE (18:03)
--- NOTE | 2016-12-23 18:05 | NUR ---
PATIENT RESIDES AT [facility] [phone]. PER MARINE AT [facility], NO BED HOLD SINCE PATIENT DOES NOT HAVE [employer] INSURANCE AND TO CALL BUSINESS OFFICE TOMORROW TO VERIFY. PATIENT IS A&OX2, NEEDS ASSISTANCE WITH ADLS. ZENA CONTRERAS (FRIEND) [phone]. NEEDS TRANSPORTATION UPON D/C.
[2016-12-23] MEDS: CEFTRIAXONE 1 G in IV D5W 50 ML IV SCH (18:13)
[2016-12-23 20:00] VITALS: BP 139/75
--- NOTE | 2016-12-23 20:00 | NUR ---
MS RN NOTE: PATIENT RESTING IN BED, NO ACUTE DISTRESS NOTED. BREATHING EVEN AND UNLABORED, NO SOB NOTED. PICC LINE TO MAXWELL IN PLACE, NOTED WITH BLOODY DRESSING, TO CHANGE DRESSING. WOUND VAC AT 125 MM/HG TO RIGHT FOOT IN PLACE, CANISTER EMPTY AT THIS TIME. BED LOCKED AND IN LOWEST POSITION, CALL LIGHT IN REACH. WILL CONTINUE TO MONITOR.
--- NOTE | 2016-12-23 20:45 | NUR ---
MS RN NOTE: PATIENT COMPLAINS OF PAIN TO RIGHT LEG/FOOT /, DILAUDID 1MG IV GIVEN PER MD ORDER. WILL CONTINUE TO MONITOR.
[2016-12-23] MEDS: DOCUSATE SODIUM 250 MG CAPSULE PO SCH ×2 (22:00→22:02)
[2016-12-23] MEDS: INSULIN DETEMIR 100 UNIT/ML CARTRIDGE SQ SCH (22:09)
--- NOTE | 2016-12-23 22:15 | NUR ---
MS RN NOTE: PATIENT BLOOD SUGAR 185 MG/DL, PATIENT TO RECEIVE 3 UNITS OF INSULIN PER SLIDING SCALE AND LEVEMIR 25 UNITS PER MD ORDER. PATIENT DENIES S/S OF HYPER/HYPOGLYCEMIA AT THIS TIME. WILL CONTINUE TO MONITOR. Addendum: 12/24/16 at 0343 by CALLIE YORK RN PATIENT REFUSES COLACE ORDERED. PATIENT EXPRESSES THAT HE DOES NOT NEED A STOOL SOFTENER AT THIS TIME. EXPLAINED RISK AND BENEFIT OF MEDICATION, BUT PATIENT STILL REFUSES.
--- NOTE | 2016-12-23 23:30 | NUR ---
MS RN NOTE: PATIENT COMPLAINS OF PAIN TO RIGHT LEG/FOOT 07/18, OXY IR 10MG ORAL GIVEN PER MD ORDER. WILL CONTINUE TO MONITOR.
--- NOTE | 2016-12-24 00:15 | NUR ---
RN NOTE: PICC LINE DRESSING CHANGED USING STERILE TECHNIQUE. PATIENT TOLERATED TREATMENT WELL. PICC LINE FLUSHED WITH 10 ML OF NS WITH NO COMPLICATIONS. WILL CONTINUE TO MONITOR.
[2016-12-24] MEDS: HYDROMORPHONE 1 MG/1 ML DISP.SYRIN IV PRN ×4 (06:31→21:13)
[2016-12-24] MEDS: BLOOD SUGAR DIAGNOSTIC 1 EACH STRIP IN SCH ×4 (06:31→21:13)
--- NOTE | 2016-12-24 06:40 | NUR ---
MS RN NOTE: PATIENT RESTING IN BED, NO ACUTE DISTRESS NOTED. BREATHING EVEN AND UNLABORED, NO SOB NOTED. PICC LINE TO MAXWELL IN PLACE, WOUND VAC AT 125 MM/HG TO RIGHT FOOT IN PLACE. PATIENT BLOOD SUGAR LEVEL 85 MG/DL, PATIENT DENIES S/S OF HYPOGLYCEMIA AT THIS TIME. NO INSULIN TO BE GIVEN PER SLIDING SCALE, SNACKS PROVIDED. BED LOCKED AND IN LOWEST POSITION, CALL LIGHT IN REACH. WILL ENDORSE TO DAY NURSE TO CONTINUE WITH PLAN OF CARE.
[2016-12-24 08:00] VITALS: BP 143/78
--- NOTE | 2016-12-24 08:00 | NUR ---
PT. AWAKE, ALERT NAND ORIENTED X3. PLACED WOUND VAC IN THE RLE.CALL LIGHT WITHIN REACH. SIDE RAILS UP. MONITOR CLOSELY.
[2016-12-24] MEDS: MAGNESIUM HYDROXIDE 30 ML UDC PO SCH ×2 (09:00→16:20)
[2016-12-24] MEDS: AMLODIPINE BESYLATE 10 MG TABLET PO SCH (09:02)
[2016-12-24] MEDS: LISINOPRIL (20MG) 20 MG TABLET PO SCH ×2 (09:02→16:32)
[2016-12-24] MEDS: VORICONAZOLE 200 MG TABLET PO SCH ×2 (09:02→21:13)
[2016-12-24] MEDS: BUPROPION XL 150 MG TAB.ER.24 PO SCH (09:02)
[2016-12-24] MEDS: oxyCODONE IR immediate release 5 MG CAPSULE PO PRN ×3 (09:10→23:40)
--- NOTE | 2016-12-24 11:00 | NUR ---
PT. WALK ON HALLWAY WITH PHYSICAL THERAPIST.
[2016-12-24 15:49] VITALS: BP 138/78
[2016-12-24 16:00] VITALS: BP 138/78
[2016-12-24] MEDS: INSULIN REGULAR, HUMAN 100 UNIT/ML 3 ML VIAL SQ PRN ×2 (17:31→21:21)
[2016-12-24] MEDS: CEFTRIAXONE 1 G in IV D5W 50 ML IV SCH (17:32)
--- NOTE | 2016-12-24 18:45 | NUR ---
PT. AWAKE, ALERT AND ORIENTED X3. COMPLAINTS OF RT FOOT PAIN. BUT IT TOLERATED BY PAIN MEDS. VS STABLE. CALL LIGHT WITHIN REACH. SIDE RAILS UP. MONITOR CLOSELY.
--- NOTE | 2016-12-24 19:50 | NUR ---
MS RN NOTE: PATIENT RESTING IN BED, NO ACUTE DISTRESS NOTED. BREATHING EVEN AND UNLABORED, NO SOB NOTED. PICC LINE TO MAXWELL IN PLACE, WOUND VAC AT 125 MM/HG TO RIGHT FOOT IN PLACE, CANISTER WITH 50 ML OF DRAINAGE. BED LOCKED AND IN LOWEST POSITION, CALL LIGHT IN REACH. WILL CONTINUE TO MONITOR.
[2016-12-24 20:00] VITALS: BP 109/77
[2016-12-24] MEDS: DOCUSATE SODIUM 250 MG CAPSULE PO SCH (21:13)
--- NOTE | 2016-12-24 21:15 | NUR ---
MS RN NOTE: PATIENT COMPLAINS OF PAIN TO RIGHT LEG/FOOT /, DILAUDID 1MG IV GIVEN PER MD ORDER. WILL CONTINUE TO MONITOR.
[2016-12-24] MEDS: INSULIN DETEMIR 100 UNIT/ML CARTRIDGE SQ SCH (21:21)
--- NOTE | 2016-12-24 21:30 | NUR ---
MS RN NOTE: PATIENT BLOOD SUGAR 261 MG/DL, PATIENT TO RECEIVE 6 UNITS OF INSULIN PER SLIDING SCALE AND LEVEMIR 25 UNITS PER MD ORDER. PATIENT DENIES S/S OF HYPER/HYPOGLYCEMIA AT THIS TIME. PATIENT REFUSES COLACE ORDERED. PATIENT EXPRESSES THAT HE DOES NOT NEED A STOOL SOFTENER AT THIS TIME. EXPLAINED RISK AND BENEFIT OF MEDICATION, BUT PATIENT STILL REFUSES. WILL CONTINUE TO MONITOR.
--- NOTE | 2016-12-24 23:45 | NUR ---
MS RN NOTE: PATIENT COMPLAINS OF PAIN TO RIGHT LEG/FOOT 07/18, OXY IR 10MG ORAL GIVEN PER MD ORDER. WILL CONTINUE TO MONITOR.
[2016-12-25] MEDS: HYDROMORPHONE 1 MG/1 ML DISP.SYRIN IV PRN ×5 (01:46→23:45)
--- NOTE | 2016-12-25 06:20 | NUR ---
MS RN NOTE: PATIENT RESTING IN BED, NO ACUTE DISTRESS NOTED. BREATHING EVEN AND UNLABORED, NO SOB NOTED. PICC LINE TO MAXWELL IN PLACE. WOUND VAC AT 125 MM/HG TO RIGHT FOOT IN PLACE. BED LOCKED AND IN LOWEST POSITION, CALL LIGHT IN REACH. WILL ENDORSE TO DAY NURSE TO CONTINUE TO MONITOR.
[2016-12-25] MEDS: BLOOD SUGAR DIAGNOSTIC 1 EACH STRIP IN SCH ×4 (07:12→22:09)
[2016-12-25 08:00] VITALS: BP 153/85
--- NOTE | 2016-12-25 08:00 | NUR ---
PT. AWAKE, ALERT AND ORIENTED X3. COMPLAINTS OF RT FOOT PAIN. GIVEN PAIN MED. WOUND VAC IN PLACED. SIDE RAILS UP. CALL LIGHT WITHIN REACH. MONITOR CLOSELY.
[2016-12-25] MEDS: MAGNESIUM HYDROXIDE 30 ML UDC PO SCH ×2 (08:12→17:00)
--- NOTE | 2016-12-25 08:30 | NUR ---
RETURNED ROOM AFTER SURGERY. PT. AWAKE, ALERT AND ORIENTED X3. DENIED PAIN. NO SOB. DRESSING ON RT FOOT. NWB ON THE RT. FOOT. VS STABLE. FAMILY AT THE BEDSIDE. SIDE RAILS UP. CALL LIGHT WITHIN REACH. MONITOR CLOSELY.
[2016-12-25] MEDS: VORICONAZOLE 200 MG TABLET PO SCH (08:43)
[2016-12-25] MEDS: BUPROPION XL 150 MG TAB.ER.24 PO SCH (08:43)
[2016-12-25] MEDS: LISINOPRIL (20MG) 20 MG TABLET PO SCH ×2 (08:43→18:02)
[2016-12-25] MEDS: AMLODIPINE BESYLATE 10 MG TABLET PO SCH (08:43)
[2016-12-25] MEDS: oxyCODONE IR immediate release 5 MG CAPSULE PO PRN ×2 (09:29→17:46)
[2016-12-25] MEDS: INSULIN REGULAR, HUMAN 100 UNIT/ML 3 ML VIAL SQ PRN ×3 (12:00→22:08)
[2016-12-25 16:00] VITALS: BP_SYST 118; BP_SYST 150; BP_DIAS 73; BP_DIAS 81
[2016-12-25] MEDS: CEFTRIAXONE 1 G in IV D5W 50 ML IV SCH (17:53)
--- NOTE | 2016-12-25 18:00 | NUR ---
PT. AWAKE, ALERT AND ORIENTED X4. TOLERATED LT FOOT PAIN BY PAIN MED. WOUND VAC IN IN PLACED.(AMT : 0 ) VS STABLE. SIDE RAILS UP. CALL LIGHT WITHIN REACH. MONITOR CLOSELY.
--- NOTE | 2016-12-25 19:20 | NUR ---
RN INITIAL NOTES RECEIVED PATIENT IN BED, AWAKE AND ALERT. ABLE TO MAKE NEEDS KNOWN. PATIENT COMPLAINING OF RLE PAIN, 8/ AT THIS TIME AND INQUIRED FOR THE NEXT SCHEDULE OF PAIN MEDICATION. INFORMED PATIENT OF THE NEXT TIME OF PAIN ADMINISTRATION, VERBALIZED UNDERSTANDING. PATIENT ASSISTED WITH REPOSITIONING AT THIS TIME, SAFETY AND COMFORT ENSURED. ON ROOM AIR, NO DISTRESS. ENCOURAGED NWB ON RLE, VERBALIZED UNDERSTANDING. RLE WITH CAST IN PLACE, WOUND VAC INTACT, CANISTER WITH SEROSANGUINEOUS DRAINAGE NOTED, WILL MONITOR OUTPUT. MAXWELL PICC LINE INTACT, GOOD BLOOD RETURN NOTED. PATIENT'S NEEDS ANTICIPATED AND MET. SAFETY AND COMFORT ENSURED. BED IN LOW AND LOCKED POSITION. CALL LIGHT IN REACH. WILL MONITOR.
[2016-12-25 20:00] VITALS: BP 143/90
[2016-12-25] MEDS: ZOLPIDEM TARTRATE 5 MG TABLET PO PRN (21:59)
[2016-12-25] MEDS: DOCUSATE SODIUM 250 MG CAPSULE PO SCH (22:00)
[2016-12-25] MEDS: INSULIN DETEMIR 100 UNIT/ML CARTRIDGE SQ SCH (22:09)
[2016-12-26] MEDS: HYDROMORPHONE 1 MG/1 ML DISP.SYRIN IV PRN ×4 (03:40→20:00)
[2016-12-26] MEDS: oxyCODONE IR immediate release 5 MG CAPSULE PO PRN ×3 (06:10→22:39)
[2016-12-26] MEDS: BLOOD SUGAR DIAGNOSTIC 1 EACH STRIP IN SCH ×4 (06:34→22:41)
--- NOTE | 2016-12-26 06:47 | NUR ---
RN CLOSING NOTES PATIENT IN BED, RESTING COMFORTABLY. PATIENT VERBALIZES INABILITY TO SLEEP FOR THE NIGHT. MEDICATED WITH AMBIEN AT HS, WITH MINIMAL HELP PER PATIENT D/T RLE PAIN AND DISCOMFORT. PATIENT ALSO MEDICATED FOR PAIN PER PATIENT'S REQUEST. RLE CAST INTACT, WOUND VAC INTACT, NO OUTPUT NOTED DURING THE SHIFT. NEEDS ANTICIPATED AND MET. SAFETY AND COMFORT ENSURED. BED IN LOW AND LOCKED POSITION. CALL LIGHT IN REACH. WILL ENDORSE ACCORDINGLY FOR CONTINUITY OF CARE.
[2016-12-26 06:52] LABS: CALCIUM, SERUM 9.1 mg/dL (8.5-10.1); CREATININE 1.1 mg/dL (0.6-1.3); POTASSIUM 4.4 mmol/L (3.5-5.1)
[2016-12-26 06:54] LABS: BASOPHILS # (AUTO) 0.1 /CMM (0.0-0.2); BASOPHILS % (AUTO) 0.6 % (0.0-2.0); EOSINOPHILS # (AUTO) 0.5 /CMM (0.0-0.7); EOSINOPHILS % (AUTO) 6.6 % (0.0-6.0); HEMATOCRIT 26 % (39-51); HEMOGLOBIN 8.4 g/dL (13.5-17.5); LYMPHOCYTES # (AUTO) 1.7 /CMM (0.8-4.8); LYMPHOCYTES % (AUTO) 20.9 % (20.0-44.0); MEAN CORPUSCULAR HEMOGLOBIN 29 PG (26.0-33.0); MEAN CORPUSCULAR HGB CONC 33 g/dl (31.0-36.0); MEAN CORPUSCULAR VOLUME 86 fL (80-96); MONOCYTES # (AUTO) 0.7 /CMM (0.1-1.30); MONOCYTES % (AUTO) 9.1 % (2.0-12.0); NEUTROPHILS % (AUTO) 62.8 % (43.0-81.0); PLATELET COUNT (AUTO) 513 /CMM (150-450); RDW COEFFICIENT OF VARIATION 14.7 (11.5-15.0); RED BLOOD CELL COUNT(AUTO) 2.97 MIL/uL (4.5-6.0)
[2016-12-26 08:00] VITALS: BP 137/84
--- NOTE | 2016-12-26 08:00 | NUR ---
NS RN NOTE PT AWAKE, ALERT AND ORIENTED X4. SLEPT WELL. DENIED SOB. WOUND VAC IN PLACED. SIDE RAILS UP. CALL LIGHT WITHIN REACH. MONITOR CLOSELY.
[2016-12-26] MEDS: LISINOPRIL (20MG) 20 MG TABLET PO SCH ×2 (08:36→16:54)
[2016-12-26] MEDS: AMLODIPINE BESYLATE 10 MG TABLET PO SCH (08:36)
[2016-12-26] MEDS: BUPROPION XL 150 MG TAB.ER.24 PO SCH (08:36)
[2016-12-26] MEDS: MAGNESIUM HYDROXIDE 30 ML UDC PO SCH ×2 (08:44→16:57)
[2016-12-26 16:00] VITALS: BP 133/74
[2016-12-26] MEDS: INSULIN REGULAR, HUMAN 100 UNIT/ML 3 ML VIAL SQ PRN ×2 (16:56→22:43)
[2016-12-26] MEDS: CEFTRIAXONE 1 G in IV D5W 50 ML IV SCH (18:46)
--- NOTE | 2016-12-26 19:02 | NUR ---
MS RN NOTE PT. AWAKE, ALERT AND ORIENTED X4. COMPLAINTS OF RT. FOOT PAIN, BUT TOLERATED BY PAIN MEDS. WOUND VAC IN PLACED. OUTPUT WAS 40ML. CALL LIGHT WITHIN REACH. SIDE RAILS UP. MONITOR CLOSELY.
--- NOTE | 2016-12-26 19:35 | NUR ---
MS/RN NOTES RECEIVED PT. LYING IN BED. AWAKE, ALERT AND ORIENTED X4. BREATHING EVEN AND UNLABORED ON ROOM AIR. NO SOB, RESPIRATORY DISTRESS OR COMPLAINTS OF PAIN AT THIS TIME. PT. WITH LEFT UPPER ARM DOUBLE LUMEN PICC PRESENT, PATENT AND INTACT. PT. WITH RIGHT LOWER EXTREMITY WOUND VAC PRESENT AND INTACT AT 125 MMHG CONTINUOUS SUCTION. BED IN LOWEST POSITION, CALL LIGHT WITHIN REACH, WILL CONTINUE TO MONITOR.
[2016-12-26 20:00] VITALS: BP 147/78
[2016-12-26] MEDS: DOCUSATE SODIUM 250 MG CAPSULE PO SCH (22:00)
[2016-12-26] MEDS: INSULIN DETEMIR 100 UNIT/ML CARTRIDGE SQ SCH (22:43)
[2016-12-27] MEDS: HYDROMORPHONE 1 MG/1 ML DISP.SYRIN IV PRN ×5 (04:22→21:31)
--- NOTE | 2016-12-27 06:40 | NUR ---
MS/RN NOTES PT. LYING IN BED RESTING. BREATHING EVEN AND UNLABORED ON ROOM AIR. NO SOB, RESPIRATORY DISTRESS OR COMPLAINTS OF PAIN AT THIS TIME. PT. WITH LEFT UPPER ARM DOUBLE LUMEN PICC PRESENT, PATENT AND INTACT. PT. WITH RIGHT LOWER EXTREMITY WOUND VAC PRESENT AND INTACT AT 125 MMHG CONTINUOUS SUCTION. 10 ML OF OUTPUT NOTED FROM THE WOUND VAC THROUGHOUT SHIFT. NO S/S OF HYPO/HYPERGLYCEMIA NOTED THROUGHOUT SHIFT. ALL PT. NEEDS MET. BED IN LOWEST POSITION, CALL LIGHT WITHIN REACH, WILL ENDORSE TO DAYSHIFT NURSE FOR CONTINUITY OF CARE.
[2016-12-27] MEDS: oxyCODONE IR immediate release 5 MG CAPSULE PO PRN ×2 (07:04→13:38)
[2016-12-27] MEDS: BLOOD SUGAR DIAGNOSTIC 1 EACH STRIP IN SCH ×4 (07:07→21:34)
[2016-12-27] MEDS: INSULIN REGULAR, HUMAN 100 UNIT/ML 3 ML VIAL SQ PRN ×4 (07:09→21:44)
--- NOTE | 2016-12-27 07:30 | NUR ---
MS RN OPENING NOTES REPORT RECEIVED AT THE BEDSIDE. PATIENT IS SLEEPING. NO SOB OR DISTRESS NOTED AT THIS TIME. PATIENT DOES NOT APPEAR TO BE IN PAIN, NO FACIAL GRIMACE NOTED. WOUND VAC IN PLACE AND DRAINING. BED IN A LOW POSITION, CALL LIGHT WITHIN PATIENT REACH. WILL CONTINUE TO MONITOR.
[2016-12-27 08:00] VITALS: BP 140/96
[2016-12-27] MEDS: MAGNESIUM HYDROXIDE 30 ML UDC PO SCH ×2 (09:00→17:00)
[2016-12-27] MEDS: AMLODIPINE BESYLATE 10 MG TABLET PO SCH (09:41)
[2016-12-27] MEDS: LISINOPRIL (20MG) 20 MG TABLET PO SCH ×2 (09:42→17:38)
[2016-12-27] MEDS: BUPROPION XL 150 MG TAB.ER.24 PO SCH (09:42)
[2016-12-27 16:00] VITALS: BP 162/94
[2016-12-27] MEDS: CEFTRIAXONE 1 G in IV D5W 50 ML IV SCH (17:39)
--- NOTE | 2016-12-27 19:37 | NUR ---
MS RN CLOSING NOTES NO SIGNIFICANT CHANGES IN PATIENT CONDITION THROUGHOUT THE SHIFT. NO SOB OR DISTRESS NOTED AT THIS TIME. PATIENT DENIES PAIN. WOUND VAC IN PLACE AND DRAINING. BED IN A LOW POSITION, CALL LIGHT WITHIN PATIENT REACH. WILL ENDORSE FOR LUIS.
[2016-12-27 20:03] VITALS: BP 154/91
[2016-12-27] MEDS: DOCUSATE SODIUM 250 MG CAPSULE PO SCH (21:36)
[2016-12-27] MEDS: INSULIN DETEMIR 100 UNIT/ML CARTRIDGE SQ SCH (21:41)
[2016-12-28] MEDS: HYDROMORPHONE 1 MG/1 ML DISP.SYRIN IV PRN ×6 (01:18→22:14)
--- NOTE | 2016-12-28 01:19 | NUR ---
MS/RN NOTE: PATIENT C/O PAIN RT. FOOT, 8/10 ON PAIN SCALE, DILAUDID 1 MG IVP ADMINISTERED.
[2016-12-28] MEDS: ZOLPIDEM TARTRATE 5 MG TABLET PO PRN ×2 (02:01→23:25)
--- NOTE | 2016-12-28 02:01 | NUR ---
MS/RN NOTE: C/O INSOMNIA, AMBIEN 5 MG TAB PO GIVEN.
[2016-12-28] MEDS: oxyCODONE IR immediate release 5 MG CAPSULE PO PRN ×2 (06:07→17:18)
--- NOTE | 2016-12-28 07:25 | NUR ---
ms rn initial notes received patient in bed, awake,, head of bed elevated, no SOB or distress noted. Alert and oriented x4, verbally responsive and able to make needs known. Wound vac intact and cast on the right leg, no output at this time. IV intact and patent. kept patient clean and comfortable in bed, call light with in patient reach, will continue to monitor accordingly.
[2016-12-28] MEDS: BLOOD SUGAR DIAGNOSTIC 1 EACH STRIP IN SCH ×4 (07:27→20:49)
[2016-12-28 08:00] VITALS: BP 150/86
[2016-12-28] MEDS: AMLODIPINE BESYLATE 10 MG TABLET PO SCH (08:13)
[2016-12-28] MEDS: MAGNESIUM HYDROXIDE 30 ML UDC PO SCH ×2 (08:13→17:05)
[2016-12-28] MEDS: LISINOPRIL (20MG) 20 MG TABLET PO SCH ×2 (08:14→17:05)
[2016-12-28] MEDS: BUPROPION XL 150 MG TAB.ER.24 PO SCH (08:14)
[2016-12-28 11:52] LABS: BASOPHILS % (AUTO) 0.7 % (0.0-2.0); EOSINOPHILS # (AUTO) 0.5 /CMM (0.0-0.7); EOSINOPHILS % (AUTO) 6.3 % (0.0-6.0); HEMATOCRIT 28 % (39-51); HEMOGLOBIN 9.1 g/dL (13.5-17.5); LYMPHOCYTES # (AUTO) 1.6 /CMM (0.8-4.8); LYMPHOCYTES % (AUTO) 22.1 % (20.0-44.0); MEAN CORPUSCULAR HEMOGLOBIN 28 PG (26.0-33.0); MEAN CORPUSCULAR HGB CONC 33 g/dl (31.0-36.0); MEAN CORPUSCULAR VOLUME 86 fL (80-96); MONOCYTES # (AUTO) 0.6 /CMM (0.1-1.30); MONOCYTES % (AUTO) 8.1 % (2.0-12.0); NEUTROPHILS # (AUTO) 4.6 /CMM (1.8-8.9); NEUTROPHILS % (AUTO) 62.8 % (43.0-81.0); PLATELET COUNT (AUTO) 517 /CMM (150-450); RDW COEFFICIENT OF VARIATION 14.5 (11.5-15.0); RED BLOOD CELL COUNT(AUTO) 3.25 MIL/uL (4.5-6.0); WHITE BLOOD COUNT (AUTO) 7.3 K/uL (4.3-11.0)
[2016-12-28] MEDS: INSULIN REGULAR, HUMAN 100 UNIT/ML 3 ML VIAL SQ PRN ×2 (12:31→20:50)
[2016-12-28 16:00] VITALS: BP 147/88
[2016-12-28] MEDS: CEFTRIAXONE 1 G in IV D5W 50 ML IV SCH (17:05)
[2016-12-28 19:00] VITALS: BP 160/94
--- NOTE | 2016-12-28 19:20 | NUR ---
ms rn closing notes All needs provided, attended, and anticipated. Kept patient clean and comfortable in bed, call light with in patient reach, will continue to monitor accordingly. Endorsed to next shift RN to continue care. No output on the wound vac.
--- NOTE | 2016-12-28 19:40 | NUR ---
MS2/RN RECEIVE PATIENT AWAKE, ALERT, ORIENTED, PAIN LEVEL 4/10, TOLERABLE PAIN LEVEL PER PATIENT, WOUND VAC WORKING WELL, CALL LIGHT IN REACH. WILL MONITOR.
[2016-12-28] MEDS: DOCUSATE SODIUM 250 MG CAPSULE PO SCH ×2 (20:48→22:00)
[2016-12-28] MEDS: INSULIN DETEMIR 100 UNIT/ML CARTRIDGE SQ SCH (20:50)
[2016-12-29] MEDS: HYDROMORPHONE 1 MG/1 ML DISP.SYRIN IV PRN ×5 (03:40→20:33)
[2016-12-29] MEDS: oxyCODONE IR immediate release 5 MG CAPSULE PO PRN ×4 (05:09→22:18)
--- NOTE | 2016-12-29 06:21 | NUR ---
MS2/RN PATIENT IS SLEEPING AT THIS TIME, APPEAR COMFORTABLE, BREATHING EVEN AND UNLABORED, ALL NEEDS ATTENDED AT THIS TIME. WILL CONTINUE TO MONITOR.
[2016-12-29] MEDS: BLOOD SUGAR DIAGNOSTIC 1 EACH STRIP IN SCH ×4 (07:32→22:08)
--- NOTE | 2016-12-29 07:35 | NUR ---
MS RN OPENING RECEIVED PT A/XO4 DENIES SOB DIFFICULTY BREATHING AND ASKING FOR DILAUDID WITH HIS MORNING MEDICATIONS. ADVISED PT WE WILL CHECK HIS VITAL SIGNS FIRST. PT STATES NO NEEDS. RIGHT LEG CAST IN PLACE AND INTACT WOUND VAC DRAINING ORDERED. PT STATES NO OTHER NEEDS AND ALL NEEDS MET.PT LEFT WITH CALL LIGHT IN REACH, BED LOWERED AND LOCKED, RAILS UPX3 FOR SAFETY AND WILL ROUND PRN
[2016-12-29 08:00] VITALS: BP 160/90
[2016-12-29] MEDS: MAGNESIUM HYDROXIDE 30 ML UDC PO SCH ×3 (08:03→17:00)
[2016-12-29] MEDS: BUPROPION XL 150 MG TAB.ER.24 PO SCH (08:04)
[2016-12-29] MEDS: ACIDOPHILUS/BULGARICUS 1 EACH TAB.CHEW PO SCH ×3 (08:04→16:40)
[2016-12-29] MEDS: LISINOPRIL (20MG) 20 MG TABLET PO SCH ×2 (08:09→17:16)
[2016-12-29] MEDS: AMLODIPINE BESYLATE 10 MG TABLET PO SCH (08:09)
[2016-12-29] MEDS: INSULIN REGULAR, HUMAN 100 UNIT/ML 3 ML VIAL SQ PRN ×3 (12:07→22:10)
[2016-12-29 16:00] VITALS: BP 133/76
[2016-12-29] MEDS: CEFTRIAXONE 1 G in IV D5W 50 ML IV SCH (17:16)
--- NOTE | 2016-12-29 19:43 | NUR ---
MS RN CLOSING PT STABLE NO COMPLICATIONS ALL DUE MEDS AND NEEDS MET. PT STATES NO NEEDS. CALL LIGHT IN REACH, BED LOWERED AND LOCKED, RAILS UPX3 FOR SAFETY AND CARE ENDORSED TO RN AT THIS TIME
[2016-12-29 20:00] VITALS: BP 148/66
--- NOTE | 2016-12-29 20:30 | NUR ---
MS RN NOTE PT IN BED SITTING UP. A/O X 4, NO SOB NOTED. PT C/O PAIN IN LT FOOT 8/10 DULL ACHING. DILAUDID 1 MG IVP GIVEN. WOUND VAC INTACT AND PATENT DRAINING SEROSANGUINEOUS AT 125 MMHG. PICC LINE INTACT AND PATENT MAXWELL DOUBLE LUMEN. SIDE RAILS UP X 2 AND CALL LIGHT WITHIN REACH. VSS. CONTINUE TO MONITOR HIM.
[2016-12-29] MEDS: DOCUSATE SODIUM 250 MG CAPSULE PO SCH (21:29)
--- NOTE | 2016-12-29 22:00 | NUR ---
MS RN NOTE BLOODSUGAR 346, 8 UNITS OF HUMULIN R INSULIN SQ GIVEN. ALSO GIVEN LEVEMIR FLEX TOUCH 25 UNITS SQ GIVEN.
[2016-12-29] MEDS: INSULIN DETEMIR 100 UNIT/ML CARTRIDGE SQ SCH (22:09)
--- NOTE | 2016-12-29 22:19 | NUR ---
MS RN NOTE PT C/O PAIN IN RT FOOT 05/17 OXY IR 10 MG PO GIVEN. CONTINUE TO MONITOR HIM.
[2016-12-30] MEDS: HYDROMORPHONE 1 MG/1 ML DISP.SYRIN IV PRN ×5 (02:01→20:12)
--- NOTE | 2016-12-30 02:05 | NUR ---
MS RN NOTE PT IN BED WOKE. C/O PAIN 06/17 RT FOOT DILAUDID 1 MG IVP GIVEN.
--- NOTE | 2016-12-30 02:33 | NUR ---
MS RN NOTE PAIN SUBSIDED 12/18. PT FALL ASLEEP, RESP EVEN AND NON LABORED. CONTINUE TO MONITOR HER.
--- NOTE | 2016-12-30 06:30 | NUR ---
MS RN NOTE PT AWAKE. BLOODSUGAR 68, OJ GIVEN. ALSO PT C/O PAIN IN RT LEG 06/17, DILAUDID 1 MG IVP GIVEN. WOUND VAC DRAINING WELL 30 ML OUTPUT SEROSANGUINEOUS FLUID NOTED. SIDE RIALS UP X 2 AND CALL LIGHT WITHIN REACH. WILL ENDORSE TO DAY SHIFT NURSE FOR CONTINUE TO CARE.
[2016-12-30] MEDS: BLOOD SUGAR DIAGNOSTIC 1 EACH STRIP IN SCH ×4 (06:34→21:35)
--- NOTE | 2016-12-30 07:20 | NUR ---
MS RN NOTES REPORT RECEIVED AT THE BEDSIDE. PATIENT IS RESTING COMFORTABLY IN BED. NO SOB OR DISTRESS NOTED AT THIS TIME. PATIENT DENIES PAIN. BED IN A LOW POSITION, CALL LIGHT WITHIN PATIENT REACH. WILL CONTINUE TO MONITOR.
[2016-12-30 08:00] VITALS: BP 142/70
[2016-12-30] MEDS: BUPROPION XL 150 MG TAB.ER.24 PO SCH (08:32)
[2016-12-30] MEDS: LISINOPRIL (20MG) 20 MG TABLET PO SCH ×2 (08:32→17:53)
[2016-12-30] MEDS: ACIDOPHILUS/BULGARICUS 1 EACH TAB.CHEW PO SCH ×3 (08:32→17:52)
[2016-12-30] MEDS: AMLODIPINE BESYLATE 10 MG TABLET PO SCH (08:33)
[2016-12-30] MEDS: MAGNESIUM HYDROXIDE 30 ML UDC PO SCH ×2 (08:33→17:00)
[2016-12-30] MEDS: INSULIN REGULAR, HUMAN 100 UNIT/ML 3 ML VIAL SQ PRN ×3 (12:15→21:39)
[2016-12-30 16:00] VITALS: BP 140/73
[2016-12-30] MEDS: oxyCODONE IR immediate release 5 MG CAPSULE PO PRN (17:52)
[2016-12-30] MEDS: CEFTRIAXONE 1 G in IV D5W 50 ML IV SCH (18:24)
--- NOTE | 2016-12-30 19:10 | NUR ---
MS RN CLOSING NOTES NO SIGNIFICANT CHANGES IN PATIENT CONDITION THROUGHOUT THE SHIFT. NO SOB OR DISTRESS NOTED AT THIS TIME. PATIENT COMPLAINING OF TOLERABLE PAIN. REPORT CALLED TO MIRTA AT [facility] FOR PATIENT DISCHARGE. PATIENT DUE TO BE PICKED UP AT 1930. WILL ENDORSE FOR LUIS.
[2016-12-30 20:00] VITALS: BP_SYST 154; BP_SYST 157; BP_DIAS 87
--- NOTE | 2016-12-30 20:14 | NUR ---
MS RN NOTES: PT C/O 06/17 PAIN ON RIGHT LEG AND FOOT REQUESTING FOR PAIN MEDICATION DILAUDID. PRN DILAUDID 1MG IVP ADMINISTERED TO THE P[T AT THIS TIME, WILL CONTINUE TO MONITOR AND REASSESS
[2016-12-30 20:29] VITALS: BP 133/72
--- NOTE | 2016-12-30 20:32 | NUR ---
MS RN NOTES: NOTED PT'S HR 105-107 HIGHEST 110, PT ASYMPTOMATIC, CONTACTED [facility] TALKED TO THE RN WHO WILL RECEIVE THE PT, INFORMED THAT PT RECEIVED DILAUDID AT 2011, AND PT BEEN GETTING PAIN MEDICATION Q3HR, PER RN WAIT FOR 30MINS DONT WANT TO SEND PT WITH HIGH HEART RATE, TALKED TO EMT AND THEY SAID THERE WILL BE ANOTHER EMT TO MORTGAGE LOAN INTERVIEWER PT IN 45MINS, SPOKE TO SHAR EMT
[2016-12-30] MEDS: DOCUSATE SODIUM 250 MG CAPSULE PO SCH (21:35)
[2016-12-30] MEDS: INSULIN DETEMIR 100 UNIT/ML CARTRIDGE SQ SCH (21:40)
--- NOTE | 2016-12-30 21:40 | NUR ---
MS RN NOTES: CHECK BLOOD SUGAR AND REVEAL 156, 2UNITS OF INSULIN GIVEN PER SLIDING SCALE
--- NOTE | 2016-12-30 22:56 | NUR ---
MS RN NOTES: CONTACTED APPLICATIONS ARCHITECT MELANIA JOHNSON, RELAYED PT'S BP 160/99 HR STILL 104-110, PT HAS NO PRN BP MEDS, HOWEVER PT'S BASELINE HR ON 80-90'S BUT WITH EPISODE OF HIGH HR HIGHEST 107, AND BASELINE BP 140-60'S, ASYMPTOMATIC, PER MD PT IS CLEAR FOR DC AND WILL NOT GIVE OTHER MEDICATION FOR BP AND HR PT IS STABLE, MD STATED TO CALL [facility] AND CHECK WHY THEY DONT WANT TO TAKE PT WITH STABLE CONDITION, RELAYED TO JONATHON OROZCO.
--- NOTE | 2016-12-30 22:59 | NUR ---
DC NOTES: CONTACTED [facility] TALKED TO ISABELA HOLT, WHO WILL TAKE PT, RELAYED VS BP AND HR, HE STATED ITS OKAY TO SEND THE PT THERE, REPORT GIVEN TO EMT, ALL BELONGINGS HANDED TO THE PARAMEDICS, IV PICC LINE KEPT PT WILL HAVE 3WEEKS OF IV ATB IN [facility], [place] REMOVED, PT WAS DISCONNECTED TO WOUND VAC, CLAMPED THE TUBING, WOUND VAC ALREADY RECEIVED IN THE [facility]. PT LEFT IN STABLE CONDITION, ACCOMPANIED BY PARAMEDICS.
[2017-01-15] MEDS ORDERED: VANC1PLA10 IV (15:13)
[2017-01-15] MEDS ORDERED: HYDR-3326 GT (15:14)
[2017-01-15] MEDS ORDERED: ONDA4TAB5 PO (15:15)
== END 2016-12-30 23:00 | DRG 981 ==
LOC: ER 13:06 → MED 15:20 → UNDOADMIN 15:20 → MEDSG2 12-23 06:25 → MED 12-23 06:25 → MEDSG2 12-23 06:29
PROVIDERS: ADMIT Nurse Practitioner Acute Care; ATTEND Nurse Practitioner Acute Care
PROC: 0KBV0ZZ Excision of Right Foot Muscle, Open Approach (ICD-10-PCS; principal; 2016-12-23 08:30)
DX: E11.52 Type 2 diabetes mellitus with diabetic peripheral angiopathy with gangrene (principal); N17.0 Acute kidney failure with tubular necrosis; L02.611 Cutaneous abscess of right foot; L03.115 Cellulitis of right lower limb; M86.671 Other chronic osteomyelitis, right ankle and foot; E11.69 Type 2 diabetes mellitus with other specified complication; G89.4 Chronic pain syndrome; Z98.84 Bariatric surgery status; D47.3 Essential (hemorrhagic) thrombocythemia; E11.65 Type 2 diabetes mellitus with hyperglycemia; F32.9 Major depressive disorder, single episode, unspecified; Z91.19 Patient's noncompliance with other medical treatment and regimen; D72.829 Elevated white blood cell count, unspecified; X58.XXXA Exposure to other specified factors, initial encounter; Y93.9 Activity, unspecified; Y99.9 Unspecified external cause status; S93.334A Other dislocation of right foot, initial encounter; Y92.89 Other specified places as the place of occurrence of the external cause; D64.9 Anemia, unspecified; E11.42 Type 2 diabetes mellitus with diabetic polyneuropathy; E11.621 Type 2 diabetes mellitus with foot ulcer; L97.519 Non-pressure chronic ulcer of other part of right foot with unspecified severity
CPT/HCPCS: 36415; 80048-TC; 80053-TC; 80061-TC; 82962-TC; 83735-TC; 84100-TC; 84443-TC; 85025-TC; 85610-TC; 85730-TC; 87081-TC; 97001-TC; A4606; A6209; A6402; A6403; J0690; J0696; J1170; J1815; J2704; J3010; J3370; J3490; J7050; J7060; Z7610

== ENCOUNTER 2017-01-06 14:49 | Outpatient (CLI) | payer MEDICARE ==
[~2017-01-06 14:49] MED LIST changes: +ACET-2605 PO; +AMIN30LI27 PO; -CEFT1FRO2 IV; +CEFT1VIA6 IV; +CRAN425C PO; +DOCU250C75 PO; -Morphine Sulfate IV; -VIT1CAPS32 PO; +VITA200C22 PO; -VORI200T PO; +VORI200T4 PO
== END 2017-01-06 23:59 | disposition home health service (06) ==
LOC: WOU 14:49
PROVIDERS: ATTEND Podiatrist Foot & Ankle Surgery
PROC: 0KBV0ZZ Excision of Right Foot Muscle, Open Approach (ICD-10-PCS; principal; 2017-01-06)
PROC: 2W1SX6Z Compression of Right Foot using Pressure Dressing (ICD-10-PCS; principal; 2017-01-06)
DX: E11.9 Type 2 diabetes mellitus without complications (principal); M86.671 Other chronic osteomyelitis, right ankle and foot; E11.621 Type 2 diabetes mellitus with foot ulcer; L97.414 Non-pressure chronic ulcer of right heel and midfoot with necrosis of bone; S93.31 Subluxation and dislocation of tarsal joint; X58.XXXS Exposure to other specified factors, sequela; Z91.19 Patient's noncompliance with other medical treatment and regimen; Z98.84 Bariatric surgery status; E11.42 Type 2 diabetes mellitus with diabetic polyneuropathy; Z83.3 Family history of diabetes mellitus; E11.65 Type 2 diabetes mellitus with hyperglycemia
CPT/HCPCS: 11043; 11046; 97606; A6402; G0463

== ENCOUNTER 2017-01-13 12:09 | Outpatient (CLI) | payer MEDICARE ==
[2017-01-15] MEDS ORDERED: VANC1PLA10 IV (15:13)
[2017-01-15] MEDS ORDERED: HYDR-3326 GT (15:14)
[2017-01-15] MEDS ORDERED: ONDA4TAB5 PO (15:15)
== END 2017-01-13 23:59 | disposition other institution (70) ==
LOC: WOU 12:09
PROVIDERS: ATTEND Podiatrist Foot & Ankle Surgery
DX: E11.621 Type 2 diabetes mellitus with foot ulcer (principal); M21.541 Acquired clubfoot, right foot; Z91.14 Patient's other noncompliance with medication regimen; L97.514 Non-pressure chronic ulcer of other part of right foot with necrosis of bone; E11.69 Type 2 diabetes mellitus with other specified complication; M86.671 Other chronic osteomyelitis, right ankle and foot; B96.89 Other specified bacterial agents as the cause of diseases classified elsewhere; Z83.3 Family history of diabetes mellitus; Z98.84 Bariatric surgery status; M24.374 Pathological dislocation of right foot, not elsewhere classified
CPT/HCPCS: 29445; A6253; A6402; G0463

== ENCOUNTER 2017-01-13 14:53 | Inpatient (IN) | payer MEDICARE ==
[~2017-01-13] VITALS: Ht 177.8 cm; Wt 74.8 kg
[2017-01-13 15:50] VITALS: BP 145/85
[2017-01-13 16:00] VITALS: BP 145/85
[2017-01-13] MEDS ORDERED: MORPHINE SULFATE INJ 2 MG/ML DISP.SYRIN IV PRN (16:30)
[2017-01-13] MEDS: SILVER SULFADIAZINE CREAM 400 GM JAR TP SCH (17:00)
[2017-01-13] MEDS ORDERED: HYDROCODONE/APAP 5/325MG 1 EACH TABLET PO PRN (18:00)
[2017-01-13] MEDS ORDERED: ONDANSETRON HCL/PF 4 MG/2 ML VIAL IVP PRN (18:00)
[2017-01-13] MEDS ORDERED: NORCO PO PRN (18:00)
[2017-01-13 20:00] VITALS: BP 132/84
[2017-01-13 20:01] VITALS: BP 132/84
[2017-01-13] MEDS ORDERED: BISACODYL SUPP (10 MG) 10 MG/SUPP.RECT SUPP.RECT RC PRN (21:00)
[2017-01-13] MEDS ORDERED: DEXTROSE 50%-WATER 50 ML DISP.SYRIN IV PRN (21:00)
[2017-01-13] MEDS: MORPHINE SULFATE INJ 2 MG/ML DISP.SYRIN IV PRN (21:21)
[2017-01-13] MEDS: INSULIN REGULAR, HUMAN 100 UNIT/ML 3 ML VIAL SQ PRN (21:28)
[2017-01-13] MEDS: BLOOD SUGAR DIAGNOSTIC 1 EACH STRIP IN SCH (21:46)
[2017-01-13] MEDS ORDERED: HYDROCODONE/APAP 10/325MG 1 EA TABLET ONE (23:54)
[2017-01-14] MEDS: MORPHINE SULFATE INJ 2 MG/ML DISP.SYRIN IV PRN ×3 (06:07→18:04)
[2017-01-14] MEDS: BLOOD SUGAR DIAGNOSTIC 1 EACH STRIP IN SCH ×4 (06:55→21:20)
[2017-01-14] MEDS: INSULIN REGULAR, HUMAN 100 UNIT/ML 3 ML VIAL SQ PRN ×3 (06:56→21:23)
[2017-01-14 07:07] LABS: BASOPHILS # (AUTO) 0.1 /CMM (0.0-0.2); BASOPHILS % (AUTO) 0.7 % (0.0-2.0); DIFF TOTAL % 100 %; EOSINOPHILS # (AUTO) 0.4 /CMM (0.0-0.7); EOSINOPHILS % (AUTO) 3.8 % (0.0-6.0); HEMATOCRIT 31 % (39-51); HEMOGLOBIN 10.1 g/dL (13.5-17.5); LYMPHOCYTES # (AUTO) 2.7 /CMM (0.8-4.8); LYMPHOCYTES % (AUTO) 26.8 % (20.0-44.0); MEAN CORPUSCULAR HEMOGLOBIN 28 PG (26.0-33.0); MEAN CORPUSCULAR HGB CONC 33 g/dl (31.0-36.0); MEAN CORPUSCULAR VOLUME 86 fL (80-96); MONOCYTES # (AUTO) 0.8 /CMM (0.1-1.30); MONOCYTES % (AUTO) 8.5 % (2.0-12.0); NEUTROPHILS % (AUTO) 60.2 % (43.0-81.0); PLATELET COUNT (AUTO) 500 /CMM (150-450); RED BLOOD CELL COUNT(AUTO) 3.56 MIL/uL (4.5-6.0); WHITE BLOOD COUNT (AUTO) 9.9 K/uL (4.3-11.0)
[2017-01-14 07:24] LABS: CALCIUM, SERUM 8.8 mg/dL (8.5-10.1); CREATININE 1.5 mg/dL (0.6-1.3); POTASSIUM 4.1 mmol/L (3.5-5.1)
[2017-01-14 07:27] LABS: C-REACTIVE PROTEIN 1.3 mg/dL (0.0-0.9)
[2017-01-14 08:00] VITALS: BP 149/62
[2017-01-14] MEDS: HYDROCODONE/APAP 10/325MG 1 EA TABLET PO PRN ×4 (08:21→20:27)
[2017-01-14] MEDS: AMLODIPINE BESYLATE 10 MG TABLET PO SCH (08:24)
[2017-01-14] MEDS: LISINOPRIL (20MG) 20 MG TABLET PO SCH ×2 (08:25→18:04)
[2017-01-14 08:35] LABS: ERYTHROCYTE SEDIMENTATION RATE 69 MM/HR (0-20)
[2017-01-14] MEDS ORDERED: Medication Not On Formulary EA (Cranberry Extract (Cranberry) 850 MG) PO SCH (09:00)
[2017-01-14] MEDS ORDERED: BUPROPION XL 150 MG TAB.ER.24 PO SCH (09:00)
[2017-01-14] MEDS ORDERED: VITAMIN E ACETATE 200 UNIT PO SCH (09:00)
[2017-01-14] MEDS: PROSOURCE / PROSTAT (PYXIS) 30 ML UDC PO SCH (09:45)
[2017-01-14] MEDS: ASCORBIC ACID 500 MG TABLET PO SCH (09:47)
[2017-01-14] MEDS: MULTIVITAMINS,THERAPEUTIC 1 UDTAB TABLET PO SCH (09:48)
[2017-01-14] MEDS: SILVER SULFADIAZINE CREAM 400 GM JAR TP SCH ×2 (09:49→18:05)
[2017-01-14] MEDS: ZINC SULFATE 220 MG CAPSULE PO SCH (09:52)
[2017-01-14] MEDS ORDERED: PIPERACILLIN /TAZOBACTAM 3.375 G in IV D5W 50 ML IV SCH ×4 (12:00)
[2017-01-14] MEDS ORDERED: IV NS 0.9% 250 ML IV ONE (12:01)
[2017-01-14] MEDS ORDERED: IV SET PRIMARY PUMP SET 1 EA INFUS.SET MC ONE (12:02)
[2017-01-14] MEDS ORDERED: FEE PK DOSING 1 MIN EA MC ONE (12:54)
[2017-01-14] MEDS ORDERED: GADOVERSETAMIDE 5 MMOL/10 ML VIAL IJ ONE (12:57)
[2017-01-14] MEDS ORDERED: GADOVERSETAMIDE 2.5 MMOL/5 ML VIAL IJ ONE (12:57)
[2017-01-14] MEDS ORDERED: SECONDARY IV SET 1 EA INFUS.SET MC ONE ×3 (13:29→18:46)
[2017-01-14 13:35] LABS: IRON, SERUM 54 ug/dl (50-175); PERCENT SATURATION 21 % (14-33); TOTAL IRON BINDING CAPACITY 259 ug/dl (250-450)
[2017-01-14] MEDS: VANCOMYCIN 1 GM in IV D5W 250 ML IV SCH (15:04)
[2017-01-14 16:00] VITALS: BP 152/87
[2017-01-14] MEDS: CEFTRIAXONE 2 G in IV D5W 100 ML IV SCH (18:55)
[2017-01-14 20:00] VITALS: BP 136/85
[2017-01-15] MEDS: VANCOMYCIN 1 GM in IV D5W 250 ML IV SCH ×2 (01:14→12:35)
[2017-01-15] MEDS: MORPHINE SULFATE INJ 2 MG/ML DISP.SYRIN IV PRN ×5 (01:18→18:54)
[2017-01-15] MEDS: HYDROCODONE/APAP 10/325MG 1 EA TABLET PO PRN ×4 (03:16→18:16)
[2017-01-15] MEDS: INSULIN REGULAR, HUMAN 100 UNIT/ML 3 ML VIAL SQ PRN ×3 (06:07→17:35)
[2017-01-15 06:22] LABS: BASOPHILS # (AUTO) 0.1 /CMM (0.0-0.2); BASOPHILS % (AUTO) 0.7 % (0.0-2.0); DIFF TOTAL % 100 %; EOSINOPHILS # (AUTO) 0.5 /CMM (0.0-0.7); EOSINOPHILS % (AUTO) 6.1 % (0.0-6.0); HEMATOCRIT 27 % (39-51); HEMOGLOBIN 9.1 g/dL (13.5-17.5); LYMPHOCYTES # (AUTO) 1.2 /CMM (0.8-4.8); LYMPHOCYTES % (AUTO) 14.6 % (20.0-44.0); MEAN CORPUSCULAR HEMOGLOBIN 28 PG (26.0-33.0); MEAN CORPUSCULAR HGB CONC 33 g/dl (31.0-36.0); MEAN CORPUSCULAR VOLUME 85 fL (80-96); MONOCYTES # (AUTO) 0.9 /CMM (0.1-1.30); MONOCYTES % (AUTO) 10.8 % (2.0-12.0); NEUTROPHILS # (AUTO) 5.4 /CMM (1.8-8.9); NEUTROPHILS % (AUTO) 67.8 % (43.0-81.0); PLATELET COUNT (AUTO) 417 /CMM (150-450); RED BLOOD CELL COUNT(AUTO) 3.22 MIL/uL (4.5-6.0); WHITE BLOOD COUNT (AUTO) 7.9 K/uL (4.3-11.0)
[2017-01-15] MEDS: BLOOD SUGAR DIAGNOSTIC 1 EACH STRIP IN SCH ×3 (06:32→17:29)
[2017-01-15 06:42] LABS: CALCIUM, SERUM 8.8 mg/dL (8.5-10.1); CREATININE 1.3 mg/dL (0.6-1.3); PHOSPHORUS 4.2 mg/dL (2.5-4.9); POTASSIUM 4.7 mmol/L (3.5-5.1)
[2017-01-15 08:00] VITALS: BP 143/81
[2017-01-15] MEDS ORDERED: BUPROPION XL 150 MG TAB.ER.24 PO SCH (09:00)
[2017-01-15] MEDS: AMLODIPINE BESYLATE 10 MG TABLET PO SCH (09:21)
[2017-01-15] MEDS: ZINC SULFATE 220 MG CAPSULE PO SCH (09:21)
[2017-01-15] MEDS: PROSOURCE / PROSTAT (PYXIS) 30 ML UDC PO SCH (09:21)
[2017-01-15] MEDS: MULTIVITAMINS,THERAPEUTIC 1 UDTAB TABLET PO SCH (09:21)
[2017-01-15] MEDS: LISINOPRIL (20MG) 20 MG TABLET PO SCH ×2 (09:21→17:24)
[2017-01-15] MEDS: ASCORBIC ACID 500 MG TABLET PO SCH (09:21)
[2017-01-15] MEDS: SILVER SULFADIAZINE CREAM 400 GM JAR TP SCH ×2 (09:23→17:24)
[2017-01-15] MEDS ORDERED: VANC1PLA10 IV (15:13)
[2017-01-15] MEDS ORDERED: HYDR-3326 GT (15:14)
[2017-01-15] MEDS ORDERED: ONDA4TAB5 PO (15:15)
[2017-01-15 16:00] VITALS: BP 121/84
[2017-01-15] MEDS ORDERED: LACTOBACILLUS RHAMNOSUS GG 1 EACH CAP.SPRINK PO SCH (17:00)
[2017-01-15 17:24] VITALS: BP 124/84
[2017-01-15] MEDS: CEFTRIAXONE 2 G in IV D5W 100 ML IV SCH (17:25)
== END 2017-01-15 20:25 | disposition home health service (06) | DRG 638 ==
LOC: WOUND2 14:53
PROVIDERS: ADMIT Podiatrist Foot & Ankle Surgery; ATTEND Internal Medicine
PROC: 02HV33Z Insertion of Infusion Device into Superior Vena Cava, Percutaneous Approach (ICD-10-PCS; principal; 2017-01-15)
PROC: B548ZZA Ultrasonography of Superior Vena Cava, Guidance (ICD-10-PCS; 2017-01-15)
DX: E11.69 Type 2 diabetes mellitus with other specified complication (principal); M86.171 Other acute osteomyelitis, right ankle and foot; E11.621 Type 2 diabetes mellitus with foot ulcer; G89.4 Chronic pain syndrome; F32.9 Major depressive disorder, single episode, unspecified; E11.42 Type 2 diabetes mellitus with diabetic polyneuropathy; D47.3 Essential (hemorrhagic) thrombocythemia; D64.9 Anemia, unspecified; Z98.84 Bariatric surgery status; L97.519 Non-pressure chronic ulcer of other part of right foot with unspecified severity; Z98.890 Other specified postprocedural states
CPT/HCPCS: 36415; 71010-TC; 73720-TC; 80048-TC; 82962-TC; 83540-TC; 83735-TC; 84100-TC; 85025-TC; 85652-TC; 86140-TC; 87070-TC; 87186-TC; A6253; A6402; A6403; A9579; C1751; J0696; J1815; J2270; J2405; J2543; J3370; J7050; J7060; Z7610

== ENCOUNTER 2017-01-22 15:02 | Outpatient (CLI) | payer MEDICARE ==
[~2017-01-22 15:02] MED LIST changes: -ACET-2605 PO; +HYDR-3326 GT; +ONDA4TAB5 PO; +VANC1PLA10 IV
== END 2017-01-22 23:59 | disposition home health service (06) ==
LOC: WOU 15:02
PROVIDERS: ATTEND Podiatrist Foot & Ankle Surgery
DX: E11.621 Type 2 diabetes mellitus with foot ulcer (principal); L97.514 Non-pressure chronic ulcer of other part of right foot with necrosis of bone; E11.69 Type 2 diabetes mellitus with other specified complication; E11.40 Type 2 diabetes mellitus with diabetic neuropathy, unspecified; M86.671 Other chronic osteomyelitis, right ankle and foot; Z91.19 Patient's noncompliance with other medical treatment and regimen; Z83.3 Family history of diabetes mellitus; Z98.84 Bariatric surgery status
CPT/HCPCS: 11042; 11045; A6253; A6402 ×2

== ENCOUNTER 2017-02-02 12:40 | Outpatient (CLI) | payer MEDICARE | END 2017-02-02 23:59 | disposition home health service (06) | LOC: WOU 12:40 | PROVIDERS: ATTEND Podiatrist Foot & Ankle Surgery | DX: E11.621 Type 2 diabetes mellitus with foot ulcer (principal); L97.514 Non-pressure chronic ulcer of other part of right foot with necrosis of bone; E11.69 Type 2 diabetes mellitus with other specified complication; M86.8X7 Other osteomyelitis, ankle and foot; E11.42 Type 2 diabetes mellitus with diabetic polyneuropathy | CPT/HCPCS: 11044; 11047; A6253; A6402 ==

== ENCOUNTER 2017-02-09 13:10 | Outpatient (CLI) | payer MEDICARE | END 2017-02-09 23:59 | disposition home health service (06) | LOC: WOU 13:10 | PROVIDERS: ATTEND Podiatrist Foot & Ankle Surgery | DX: E11.621 Type 2 diabetes mellitus with foot ulcer (principal); L97.514 Non-pressure chronic ulcer of other part of right foot with necrosis of bone; E11.69 Type 2 diabetes mellitus with other specified complication; M86.8X7 Other osteomyelitis, ankle and foot; E11.610 Type 2 diabetes mellitus with diabetic neuropathic arthropathy; E11.40 Type 2 diabetes mellitus with diabetic neuropathy, unspecified | CPT/HCPCS: 11044; 11047; A6253; A6402 ×2 ==

== ENCOUNTER 2017-02-16 13:07 | Outpatient (CLI) | payer MEDICARE | END 2017-02-16 23:59 | disposition home health service (06) | LOC: WOU 13:07 | PROVIDERS: ATTEND Podiatrist Foot & Ankle Surgery | DX: E11.621 Type 2 diabetes mellitus with foot ulcer (principal); L97.514 Non-pressure chronic ulcer of other part of right foot with necrosis of bone; E11.42 Type 2 diabetes mellitus with diabetic polyneuropathy; E11.69 Type 2 diabetes mellitus with other specified complication; M86.671 Other chronic osteomyelitis, right ankle and foot; E11.610 Type 2 diabetes mellitus with diabetic neuropathic arthropathy; M24.374 Pathological dislocation of right foot, not elsewhere classified; R60.0 Localized edema | CPT/HCPCS: 15275; A6253; A6402; Q4131 ==

== ENCOUNTER 2017-02-19 13:25 | Outpatient (CLI) | payer MEDICARE | END 2017-02-19 23:59 | disposition home health service (06) | LOC: WOU 13:25 | PROVIDERS: ATTEND Podiatrist Foot & Ankle Surgery | DX: E11.621 Type 2 diabetes mellitus with foot ulcer (principal); M24.474 Recurrent dislocation, right foot; T86.821 Skin graft (allograft) (autograft) failure; E11.69 Type 2 diabetes mellitus with other specified complication; M86.671 Other chronic osteomyelitis, right ankle and foot; E11.65 Type 2 diabetes mellitus with hyperglycemia; Z91.14 Patient's other noncompliance with medication regimen; Z91.19 Patient's noncompliance with other medical treatment and regimen; L97.519 Non-pressure chronic ulcer of other part of right foot with unspecified severity; Z98.84 Bariatric surgery status; D69.6 Thrombocytopenia, unspecified; D64.9 Anemia, unspecified | CPT/HCPCS: 29730; A6402; G0463 ==

== ENCOUNTER 2017-03-03 10:20 | Outpatient (CLI) | payer MEDICARE | END 2017-03-03 23:59 | disposition home health service (06) | LOC: WOU 10:20 | PROVIDERS: ATTEND Podiatrist Foot & Ankle Surgery | DX: E11.621 Type 2 diabetes mellitus with foot ulcer (principal); L97.414 Non-pressure chronic ulcer of right heel and midfoot with necrosis of bone; E11.69 Type 2 diabetes mellitus with other specified complication; M86.671 Other chronic osteomyelitis, right ankle and foot; R11.0 Nausea; T40.605A Adverse effect of unspecified narcotics, initial encounter; Y92.89 Other specified places as the place of occurrence of the external cause; Z91.19 Patient's noncompliance with other medical treatment and regimen; E11.42 Type 2 diabetes mellitus with diabetic polyneuropathy; R60.0 Localized edema; Z98.84 Bariatric surgery status; S93.31 Subluxation and dislocation of tarsal joint | CPT/HCPCS: 15275; A6253; A6402 ==

== ENCOUNTER 2017-03-12 09:58 | Outpatient (CLI) | payer MEDICARE | END 2017-03-12 23:59 | disposition home health service (06) | LOC: WOU 09:58 | PROVIDERS: ATTEND Podiatrist Foot & Ankle Surgery | DX: E11.621 Type 2 diabetes mellitus with foot ulcer (principal); L97.414 Non-pressure chronic ulcer of right heel and midfoot with necrosis of bone; E11.69 Type 2 diabetes mellitus with other specified complication; M86.671 Other chronic osteomyelitis, right ankle and foot; Z79.2 Long term (current) use of antibiotics; Z91.19 Patient's noncompliance with other medical treatment and regimen; E11.65 Type 2 diabetes mellitus with hyperglycemia; Z98.84 Bariatric surgery status; S93.31 Subluxation and dislocation of tarsal joint; M21.171 Varus deformity, not elsewhere classified, right ankle; E11.40 Type 2 diabetes mellitus with diabetic neuropathy, unspecified; B96.89 Other specified bacterial agents as the cause of diseases classified elsewhere | CPT/HCPCS: 15275; A6253; A6402 ==

== ENCOUNTER 2017-03-19 14:10 | Outpatient (CLI) | payer MEDICARE | END 2017-03-19 23:59 | disposition home health service (06) | LOC: WOU 14:10 | PROVIDERS: ATTEND Podiatrist Foot & Ankle Surgery | DX: E11.621 Type 2 diabetes mellitus with foot ulcer (principal); L97.511 Non-pressure chronic ulcer of other part of right foot limited to breakdown of skin; E11.69 Type 2 diabetes mellitus with other specified complication; Z98.84 Bariatric surgery status; Z91.19 Patient's noncompliance with other medical treatment and regimen; E11.65 Type 2 diabetes mellitus with hyperglycemia; M86.671 Other chronic osteomyelitis, right ankle and foot | CPT/HCPCS: 15275; Q4110; A6253 ==

== ENCOUNTER 2017-03-26 14:29 | Outpatient (CLI) | payer MEDICARE | END 2017-03-26 23:59 | disposition home health service (06) | LOC: WOU 14:29 | PROVIDERS: ATTEND Podiatrist Foot & Ankle Surgery | DX: E11.621 Type 2 diabetes mellitus with foot ulcer (principal); E11.40 Type 2 diabetes mellitus with diabetic neuropathy, unspecified; E11.610 Type 2 diabetes mellitus with diabetic neuropathic arthropathy; E11.69 Type 2 diabetes mellitus with other specified complication; M86.641 Other chronic osteomyelitis, right hand; E11.65 Type 2 diabetes mellitus with hyperglycemia; R26.9 Unspecified abnormalities of gait and mobility; Z91.19 Patient's noncompliance with other medical treatment and regimen; L97.513 Non-pressure chronic ulcer of other part of right foot with necrosis of muscle; L97.511 Non-pressure chronic ulcer of other part of right foot limited to breakdown of skin | CPT/HCPCS: 15275; A6253; A6402; Q4110 ==

== ENCOUNTER 2017-04-01 09:17 | Outpatient (CLI) | payer MEDICARE | END 2017-04-01 23:59 | disposition home or self-care (01) | LOC: MRI 09:17 | PROVIDERS: ATTEND Podiatrist Foot & Ankle Surgery | DX: M14.671 Charcot's joint, right ankle and foot (principal); M25.474 Effusion, right foot; M65.871 Other synovitis and tenosynovitis, right ankle and foot; M62.571 Muscle wasting and atrophy, not elsewhere classified, right ankle and foot; L03.115 Cellulitis of right lower limb; L98.499 Non-pressure chronic ulcer of skin of other sites with unspecified severity | CPT/HCPCS: 73718-TC ==

== ENCOUNTER 2017-04-02 09:49 | Outpatient (CLI) | payer MEDICARE | END 2017-04-02 23:59 | disposition home health service (06) | LOC: WOU 09:49 | PROVIDERS: ATTEND Podiatrist Foot & Ankle Surgery | DX: E11.621 Type 2 diabetes mellitus with foot ulcer (principal); L97.513 Non-pressure chronic ulcer of other part of right foot with necrosis of muscle; L97.511 Non-pressure chronic ulcer of other part of right foot limited to breakdown of skin; E11.610 Type 2 diabetes mellitus with diabetic neuropathic arthropathy; E11.69 Type 2 diabetes mellitus with other specified complication; E11.65 Type 2 diabetes mellitus with hyperglycemia; M86.671 Other chronic osteomyelitis, right ankle and foot; B96.89 Other specified bacterial agents as the cause of diseases classified elsewhere; Z91.19 Patient's noncompliance with other medical treatment and regimen | CPT/HCPCS: 15275; A6253; A6402; Q4110 ==

== ENCOUNTER 2017-04-09 13:50 | Outpatient (CLI) | payer MEDICARE | END 2017-04-09 23:59 | disposition home health service (06) | LOC: WOU 13:50 | PROVIDERS: ATTEND Podiatrist Foot & Ankle Surgery | DX: E11.621 Type 2 diabetes mellitus with foot ulcer (principal); L97.514 Non-pressure chronic ulcer of other part of right foot with necrosis of bone; E11.69 Type 2 diabetes mellitus with other specified complication; M86.671 Other chronic osteomyelitis, right ankle and foot; B96.89 Other specified bacterial agents as the cause of diseases classified elsewhere; E11.65 Type 2 diabetes mellitus with hyperglycemia; E11.610 Type 2 diabetes mellitus with diabetic neuropathic arthropathy; M24.374 Pathological dislocation of right foot, not elsewhere classified; Z79.899 Other long term (current) drug therapy | CPT/HCPCS: 15275; 87070; 87075; 87186 ×3; A6253; A6402; Q4110 ==

== ENCOUNTER 2017-04-14 13:25 | Outpatient (CLI) | payer MEDICARE | END 2017-04-14 23:59 | disposition home health service (06) | LOC: WOU 13:25 | PROVIDERS: ATTEND Podiatrist Foot & Ankle Surgery | DX: E11.621 Type 2 diabetes mellitus with foot ulcer (principal); L97.511 Non-pressure chronic ulcer of other part of right foot limited to breakdown of skin; E11.69 Type 2 diabetes mellitus with other specified complication; M86.671 Other chronic osteomyelitis, right ankle and foot; B96.89 Other specified bacterial agents as the cause of diseases classified elsewhere; E11.42 Type 2 diabetes mellitus with diabetic polyneuropathy; R60.0 Localized edema; Z98.84 Bariatric surgery status; M24.374 Pathological dislocation of right foot, not elsewhere classified | CPT/HCPCS: 15275; A6253; A6402; Q4110 ==

== ENCOUNTER 2017-04-23 13:25 | Outpatient (CLI) | payer MEDICARE | END 2017-04-23 23:59 | disposition home health service (06) | LOC: WOU 13:25 | PROVIDERS: ATTEND Podiatrist Foot & Ankle Surgery | DX: L97.511 Non-pressure chronic ulcer of other part of right foot limited to breakdown of skin (principal); E11.42 Type 2 diabetes mellitus with diabetic polyneuropathy; E11.69 Type 2 diabetes mellitus with other specified complication; M86.671 Other chronic osteomyelitis, right ankle and foot; T81.89XD Other complications of procedures, not elsewhere classified, subsequent encounter; Z91.19 Patient's noncompliance with other medical treatment and regimen | CPT/HCPCS: 15275; A6253; A6402; Q4110 ==

== ENCOUNTER 2017-05-04 11:30 | Outpatient (CLI) | payer MEDICARE, OTHER | END 2017-05-04 23:59 | disposition home health service (06) | LOC: WOU 11:30 | PROVIDERS: ATTEND Podiatrist Foot & Ankle Surgery | DX: E11.621 Type 2 diabetes mellitus with foot ulcer (principal); E11.69 Type 2 diabetes mellitus with other specified complication; M86.671 Other chronic osteomyelitis, right ankle and foot; M21.171 Varus deformity, not elsewhere classified, right ankle; Z91.19 Patient's noncompliance with other medical treatment and regimen; Z98.84 Bariatric surgery status; E11.42 Type 2 diabetes mellitus with diabetic polyneuropathy; D47.3 Essential (hemorrhagic) thrombocythemia; L97.511 Non-pressure chronic ulcer of other part of right foot limited to breakdown of skin; R60.0 Localized edema | CPT/HCPCS: 15275; A6402; Q4110 ==

== ENCOUNTER 2017-05-05 13:33 | Outpatient (CLI) | payer MEDICARE, OTHER | END 2017-05-05 23:59 | disposition home health service (06) | LOC: WOU 13:33 | PROVIDERS: ATTEND Specialist | DX: E11.69 Type 2 diabetes mellitus with other specified complication (principal); M86.671 Other chronic osteomyelitis, right ankle and foot; M89.771 Major osseous defect, right ankle and foot; E11.621 Type 2 diabetes mellitus with foot ulcer; L97.414 Non-pressure chronic ulcer of right heel and midfoot with necrosis of bone; E11.40 Type 2 diabetes mellitus with diabetic neuropathy, unspecified; E11.65 Type 2 diabetes mellitus with hyperglycemia; Z98.84 Bariatric surgery status; Z79.899 Other long term (current) drug therapy; M24.374 Pathological dislocation of right foot, not elsewhere classified | CPT/HCPCS: G0463 ==

== ENCOUNTER 2017-05-14 14:09 | Outpatient (CLI) | payer MEDICARE, OTHER | END 2017-05-14 23:59 | disposition home health service (06) | LOC: WOU 14:09 | PROVIDERS: ATTEND Podiatrist Foot & Ankle Surgery | DX: E11.621 Type 2 diabetes mellitus with foot ulcer (principal); L97.511 Non-pressure chronic ulcer of other part of right foot limited to breakdown of skin; E11.69 Type 2 diabetes mellitus with other specified complication; M86.671 Other chronic osteomyelitis, right ankle and foot; Z98.890 Other specified postprocedural states; E11.65 Type 2 diabetes mellitus with hyperglycemia; E11.42 Type 2 diabetes mellitus with diabetic polyneuropathy; Z91.19 Patient's noncompliance with other medical treatment and regimen; Z79.84 Long term (current) use of oral hypoglycemic drugs | CPT/HCPCS: 11042; 11045; A6253; A6402 ==

== ENCOUNTER 2017-05-21 13:32 | Outpatient (CLI) | payer MEDICARE, OTHER | END 2017-05-21 23:59 | disposition home health service (06) | LOC: WOU 13:32 | PROVIDERS: ATTEND Podiatrist Foot & Ankle Surgery | DX: E11.621 Type 2 diabetes mellitus with foot ulcer (principal); L97.514 Non-pressure chronic ulcer of other part of right foot with necrosis of bone; E11.42 Type 2 diabetes mellitus with diabetic polyneuropathy; M21.171 Varus deformity, not elsewhere classified, right ankle; E11.65 Type 2 diabetes mellitus with hyperglycemia; Z98.84 Bariatric surgery status; E11.69 Type 2 diabetes mellitus with other specified complication; M86.8X7 Other osteomyelitis, ankle and foot; Z91.19 Patient's noncompliance with other medical treatment and regimen; M24.474 Recurrent dislocation, right foot | CPT/HCPCS: 11044; A6197; A6402; 11047; A6253 ==

== ENCOUNTER 2017-05-31 10:15 | Outpatient (CLI) | payer MEDICARE, OTHER | END 2017-05-31 23:59 | disposition home or self-care (01) | LOC: MRI 10:15 | PROVIDERS: ATTEND Podiatrist Foot & Ankle Surgery | DX: S93.321A Subluxation of tarsometatarsal joint of right foot, initial encounter (principal); L97.519 Non-pressure chronic ulcer of other part of right foot with unspecified severity; L03.115 Cellulitis of right lower limb; M62.571 Muscle wasting and atrophy, not elsewhere classified, right ankle and foot; M65.871 Other synovitis and tenosynovitis, right ankle and foot; M25.474 Effusion, right foot; X58.XXXA Exposure to other specified factors, initial encounter; Y93.89 Activity, other specified; Y92.89 Other specified places as the place of occurrence of the external cause; Y99.8 Other external cause status | CPT/HCPCS: 73718-TC ==

== ENCOUNTER 2017-06-01 13:15 | Outpatient (CLI) | payer MEDICARE, OTHER | END 2017-06-01 23:59 | disposition home health service (06) | LOC: WOU 13:15 | PROVIDERS: ATTEND Podiatrist Foot & Ankle Surgery | DX: E11.621 Type 2 diabetes mellitus with foot ulcer (principal); L97.411 Non-pressure chronic ulcer of right heel and midfoot limited to breakdown of skin; E11.42 Type 2 diabetes mellitus with diabetic polyneuropathy; E11.610 Type 2 diabetes mellitus with diabetic neuropathic arthropathy; E11.69 Type 2 diabetes mellitus with other specified complication; M86.671 Other chronic osteomyelitis, right ankle and foot; Z91.19 Patient's noncompliance with other medical treatment and regimen; L03.115 Cellulitis of right lower limb; Z79.899 Other long term (current) drug therapy | CPT/HCPCS: 11042; A6253; A6402 ==

== ENCOUNTER → 2017-06-08 | Outpatient (CLI) | payer MEDICARE, OTHER | END | disposition home health service (06) | LOC: WOU 13:00 | PROVIDERS: ATTEND Podiatrist Foot & Ankle Surgery | DX: E11.621 Type 2 diabetes mellitus with foot ulcer (principal); L97.411 Non-pressure chronic ulcer of right heel and midfoot limited to breakdown of skin; E11.42 Type 2 diabetes mellitus with diabetic polyneuropathy; E11.610 Type 2 diabetes mellitus with diabetic neuropathic arthropathy; E11.69 Type 2 diabetes mellitus with other specified complication; M86.671 Other chronic osteomyelitis, right ankle and foot; Z91.19 Patient's noncompliance with other medical treatment and regimen; Z79.899 Other long term (current) drug therapy; S93.31 Subluxation and dislocation of tarsal joint; Z98.890 Other specified postprocedural states | CPT/HCPCS: 11042; 11045; A6402 ==

== ENCOUNTER 2017-06-16 14:02 | Outpatient (CLI) | payer MEDICARE, OTHER | END 2017-06-16 23:59 | disposition home or self-care (01) | LOC: WOU 14:02 | PROVIDERS: ATTEND Internal Medicine Infectious Disease | DX: R93.8 Abnormal findings on diagnostic imaging of other specified body structures (principal) | CPT/HCPCS: G0463 ==

== ENCOUNTER 2017-06-18 14:22 | Outpatient (CLI) | payer MEDICARE, OTHER | END 2017-06-18 23:59 | disposition home health service (06) | LOC: WOU 14:22 | PROVIDERS: ATTEND Podiatrist Foot & Ankle Surgery | DX: E11.621 Type 2 diabetes mellitus with foot ulcer (principal); L97.411 Non-pressure chronic ulcer of right heel and midfoot limited to breakdown of skin; E11.42 Type 2 diabetes mellitus with diabetic polyneuropathy; E11.610 Type 2 diabetes mellitus with diabetic neuropathic arthropathy; E11.69 Type 2 diabetes mellitus with other specified complication; M86.671 Other chronic osteomyelitis, right ankle and foot; Z91.19 Patient's noncompliance with other medical treatment and regimen; Z79.899 Other long term (current) drug therapy; S93.31 Subluxation and dislocation of tarsal joint; Z98.890 Other specified postprocedural states; E11.65 Type 2 diabetes mellitus with hyperglycemia | CPT/HCPCS: 11042; 11045; 87070-TC; 87075-TC; 87186-TC; A6402 ==

== ENCOUNTER 2017-06-28 01:01 | Inpatient (IN) | payer MEDICARE, OTHER ==
[2017-06-28] VITALS (11 sets, daily range): BP systolic 139–164; BP diastolic 86–95
[~2017-06-28] VITALS: Ht 175.3 cm; Wt 78.5 kg
--- NOTE | 2017-06-28 01:22 | NUR ---
PT STATES HE WAS SENT HERE BY HIS PMD FOR AN INFECTED WOUND ON HIS RIGHT FOOT PT BIBA#[id number]. PT WITH CAST TO LEFT FOOT. PT AOX4 RR EVEN AND UNLABORED. NO SOB NOTED NAD NOTED. NO NVD AT THIS TIME. PT GOWNED AND PLACED ON MONITOR WAITING FOR MD JOSHUA. PER PT STATES DR. MUIR RIGHT FOOT DEBRIDEMENT ON 06/17/17.
[2017-06-28] MEDS ORDERED: VANCOMYCIN 1 GM in IV D5W 250 ML IV ONE (01:30)
[2017-06-28] MEDS ORDERED: IV NS 0.9% 1,000 ML BAG IV ONE (01:30)
[2017-06-28] MEDS ORDERED: MORPHINE SULFATE INJ 2 MG/ML DISP.SYRIN IV ONE (01:30)
[2017-06-28] MEDS ORDERED: PIPERACILLIN /TAZOBACTAM 3.375 G in IV D5W 50 ML IV ONE (01:30)
[2017-06-28] MEDS ORDERED: ONDANSETRON HCL/PF 4 MG/2 ML VIAL IVP ONE (01:30)
[2017-06-28] MEDS ORDERED: PIPERACILLIN /TAZOBACTAM 3.375 G VIAL IV ONE ×2 (01:37→04:39)
[2017-06-28] MEDS ORDERED: ONDANSETRON HCL/PF 4 MG/2 ML VIAL ONE (01:37)
[2017-06-28] MEDS ORDERED: MORPHINE SULFATE INJ 4 MG/ML DISP.SYRIN ONE ×2 (01:38→05:45)
[2017-06-28 01:47] LABS: BASOPHILS % (AUTO) 0.4 % (0.0-2.0); EOSINOPHILS # (AUTO) 0.2 /CMM (0.0-0.7); EOSINOPHILS % (AUTO) 1.9 % (0.0-6.0); HEMATOCRIT 21 % (39-51); LYMPHOCYTES # (AUTO) 1.1 /CMM (0.8-4.8); LYMPHOCYTES % (AUTO) 8.5 % (20.0-44.0); MEAN CORPUSCULAR HEMOGLOBIN 24 PG (26.0-33.0); MEAN CORPUSCULAR HGB CONC 31 g/dl (31.0-36.0); MEAN CORPUSCULAR VOLUME 76 fL (80-96); MONOCYTES # (AUTO) 0.7 /CMM (0.1-1.30); MONOCYTES % (AUTO) 5.5 % (2.0-12.0); NEUTROPHILS # (AUTO) 10.7 /CMM (1.8-8.9); NEUTROPHILS % (AUTO) 83.7 % (43.0-81.0); PLATELET COUNT (AUTO) 725 /CMM (150-450); RED BLOOD CELL COUNT(AUTO) 2.71 MIL/uL (4.5-6.0); WHITE BLOOD COUNT (AUTO) 12.8 K/uL (4.3-11.0)
[2017-06-28 01:52] LABS: HEMOGLOBIN 6.4 g/dL (13.5-17.5)
[2017-06-28 01:55] LABS: CALCIUM, SERUM 8.7 mg/dL (8.5-10.1); CREATININE 1.3 mg/dL (0.6-1.3); POTASSIUM 4.4 mmol/L (3.5-5.1)
--- NOTE | 2017-06-28 01:56 | NUR ---
XRAY AT BEDSIDE FOR CXR
[2017-06-28 01:57] LABS: INR 1.09 (0.87-1.13); PROTHROMBIN TIME 11.7 SECS (9.5-12.7)
[2017-06-28 02:01] LABS: ALBUMIN 2.2 g/dL (3.4-5.0); BILIRUBIN,TOTAL 0.1 mg/dL (0.2-1.0); TOTAL PROTEIN, SERUM 8.6 g/dL (6.4-8.2)
[2017-06-28 02:13] LABS: EOSINOPHILS % (MANUAL) 1 % (0-4); LYMPHOCYTES % (MANUAL) 12 % (16-48); MONOCYTES % (MANUAL) 2 % (0-11.0); NEUTROPHILS % (MANUAL) 85 (42-76)
[2017-06-28] MEDS ORDERED: VANCOMYCIN 1 GM VIAL ONE (02:19)
[2017-06-28] MEDS ORDERED: ENOXAPARIN SODIUM 40 MG/0.4 ML DISP.SYRIN SQ SCH (02:30)
[2017-06-28] MEDS ORDERED: ONDANSETRON HCL/PF 4 MG/2 ML VIAL IVP PRN (02:30)
[2017-06-28] MEDS ORDERED: Z GUARD REMEDY 2 OZ OINT TP PRN (02:30)
[2017-06-28] MEDS ORDERED: ACETAMINOPHEN 325 MG TABLET PO PRN (02:30)
[2017-06-28] MEDS ORDERED: MAG HYDROX/AL HYDROX/SIMETH 30 ML UDC PO PRN (02:30)
[2017-06-28] MEDS ORDERED: MAGNESIUM HYDROXIDE 30 ML UDC PO PRN (02:30)
--- NOTE | 2017-06-28 02:54 | NUR ---
REPORT GIVEN TO JONATHON JEWELL FOR MS BED 316. INFORMED JONATHON VALENTE TRANSFUSING ON ADMISSION.
--- NOTE | 2017-06-28 03:03 | NUR ---
MS RN ADMIN NOTES PT WAS RECEIVED VIA [place], ABLE TO AMBULATE FROM GURNEY TO THE BED. PT HAS A CAST IN PLACE THAT IS FOUL SMELLING, THEY WERE UNABLE TO REMOVE IN ER AWAITING PODIATRY TO REMOVE IN AM. A/C X3 ABLE TO MAKE NEED KNOWN. NO SIGNS OF SOB OR DISTRESS. ON ROOM AIR SATING AT 100% BREATHING EVENLY AND UNLABORED. PT APPEARS PALE, HGB AT 6.4 WILL INFUSE 1 UNIT OF BLOOD, CURRENTLY RECEIVING VANCO THAT WASN'T COMPLETED IN ER. IV ACCESS ON LEFT AC #18 INTACT AND PATENT. GAVE PT A WALKER TO AMBULATE WITH. WILL CONTINUE TO MONITOR PT
[2017-06-28] MEDS ORDERED: ENOXAPARIN SODIUM 40 MG/0.4 ML DISP.SYRIN SQ ONE (03:38)
[2017-06-28] MEDS ORDERED: DEXTROSE 50%-WATER 50 ML DISP.SYRIN IV PRN (05:00)
[2017-06-28] MEDS: BLOOD SUGAR DIAGNOSTIC 1 EACH STRIP VI SCH ×4 (06:28→21:00)
[2017-06-28] MEDS: PIPERACILLIN /TAZOBACTAM 3.375 G in IV D5W 50 ML IV SCH ×4 (06:28→23:49)
[2017-06-28] MEDS: INSULIN REGULAR, HUMAN 100 UNIT/ML 3 ML VIAL SQ PRN ×3 (06:40→18:20)
--- NOTE | 2017-06-28 07:14 | NUR ---
MS RN CLOSING NOTES PT IS SLEEPING IN BED. NO SIGNS OF SB OR DISTRESS. BREATHING EVENLY AND UNLABORED ON RA. BLOOD WAS TRANSFUSED, VITALS REMAINED STABLE. ANTIBIOTICS WERE BEGUN. CAST TO BE REMOVED TODAY. WILL ENDORSE TO DAYSHIFT
--- NOTE | 2017-06-28 07:30 | NUR ---
MS RN OPENING NOTES RECEIVED PATIENT IN BED RESTING, A/O X4. NO ACUTE DISTRESS, NO SOB NOTED. DENIES ANY PAIN OR DISCOMFORT AT THE MOMENT. PATIENT HAS CAST ON RLE, FOUL SMELLING NOTED, TO REMOVE CAST TODAY. IV SITE INTACT AND PATENT. KEPT PATIENT SAFE AND COMFORTABLE. BED IN LOW POSITION, LOCKED, SIDERAILS UP X2. CALL LIGHT IN REACH. WILL CONTINUE TO MONITOR ACCORDINGLY.
[2017-06-28 08:02] LABS: MAGNESIUM 1.6 mg/dL (1.8-2.4); PHOSPHORUS 3.5 mg/dL (2.5-4.9)
[2017-06-28] MEDS ORDERED: GABA600T2 PO (08:10)
[2017-06-28] MEDS ORDERED: LEVO750T21 PO (08:10)
[2017-06-28] MEDS: HYDROCODONE/APAP 5/325MG 1 EACH TABLET PO PRN ×2 (08:57→18:16)
[2017-06-28] MEDS: PANTOPRAZOLE 40 MG TABLET.DR PO SCH (08:57)
[2017-06-28] MEDS ORDERED: Magnesium 1GM/D5W 100ML PREMIX 100 ML IV SCH (10:00)
[2017-06-28] MEDS ORDERED: hydrALAZINE HCL 10 MG TABLET PO ONE (10:30)
[2017-06-28] MEDS: Magnesium 1GM/D5W 100ML PREMIX 100 ML IV SCH ×2 (11:03→13:48)
--- NOTE | 2017-06-28 12:25 | NUR ---
Social service consult requested by MANUEL Herrera regarding Advance Directives. Pt. is a 52 year old male who was admitted to [facility] for Osteomyelitis on his right foot. SW met with pt. bedside. Pt. is alert and oriented x4. Pt. was friendly with SW during the visit. SW discussed Advance healthcare directives with pt. and gave him the Advance Directive Forms. Pt. states he will review it and decide as to who he wants his principal agent to be.
[2017-06-28] MEDS ORDERED: FEE PK DOSING 1 MIN EA MC ONE (14:20)
[2017-06-28] MEDS: MORPHINE SULFATE INJ 2 MG/ML DISP.SYRIN IV PRN ×2 (14:41→20:54)
[2017-06-28] MEDS: VANCOMYCIN 1.25 GM in IV D5W 500 ML IV SCH (15:16)
--- NOTE | 2017-06-28 19:00 | NUR ---
RN CLOSING NOTES PATIENT IN BED RESTING, NO ACUTE DISTRESS, NO SOB NOTED. ALL NEEDS ATTENDED AND PROVIDED. KEPT PATIENT SAFE AND COMFORTABLE. BED IN LOW POSITION, SIDERAILS UP X2. CALL LIGHT IN REACH. ENDORSED TO ADMINISTRATIVE OFFICE ASSISTANT RN FOR LUIS.
--- NOTE | 2017-06-28 19:40 | NUR ---
MS RN INITIAL NOTES PT WAS RECEIVED IN BED, A/O X3 ABLE TO MAKE NEEDS KNOWN. ON ROOM AIR BREATHING EVENLY AND UNLABORED. NO SIGNS OF SOB OR DISTRESS. IV ACCESS IS INTACT AND PATENT. PT IS REQUESTING MORE FOOD, EGG SALAD SANDWICH WAS GIVEN. CAST REMAINS ON THE PATIENT. WILL CONTINUE TO MONITOR.
[2017-06-28] MEDS: *INSULIN REGULAR(HUMULIN R)HUM 100 UNIT/ML VIAL SQ PRN (21:01)
[2017-06-29] MEDS: MORPHINE SULFATE INJ 2 MG/ML DISP.SYRIN IV PRN ×5 (00:55→21:45)
[2017-06-29] MEDS: VANCOMYCIN 1.25 GM in IV D5W 500 ML IV SCH ×2 (01:00→14:06)
[2017-06-29] MEDS: PIPERACILLIN /TAZOBACTAM 3.375 G in IV D5W 50 ML IV SCH ×3 (05:05→17:16)
[2017-06-29] MEDS: IV NS 0.9% 1,000 ML IV PRN (05:05)
[2017-06-29] MEDS: BLOOD SUGAR DIAGNOSTIC 1 EACH STRIP VI SCH ×4 (06:39→21:21)
[2017-06-29] MEDS: INSULIN REGULAR, HUMAN 100 UNIT/ML 3 ML VIAL SQ PRN ×3 (06:41→17:16)
--- NOTE | 2017-06-29 06:49 | NUR ---
MS RN CLOSING NOTES PT IS SLEEPING IN BED. NO SIGNS OF SB OR DISTRESS. BREATHING EVENLY AND UNLABORED ON RA. CAST TO BE REMOVED TODAY, AM TO FOLLOW UP. ANTIBIOTICS WERE GIVEN. CALL LIGHT IS WITHIN REACH. WILL ENDORSE TO DAYSHIFT
--- NOTE | 2017-06-29 07:30 | NUR ---
MED SURGE RN: NOTE RECEIVED PT AWAKE, ALERT, ORIENTED X4. ARRIVED TO ROOM AND PT WAS SITTING IN AN UPRIGHT POSITION IN BED. PT STATED BEING UNHAPPY DUE TO WAITING FOR BEE TENDER TO ARRIVE. LISTENED TO PT ATTENTIVELY, AND WILL FOLLOW UP WITH MD.
[2017-06-29 08:00] VITALS: BP 162/95
--- NOTE | 2017-06-29 08:00 | NUR ---
MED SURGE RN: NOTE DR. LEVY AT BEDSIDE AT THIS TIME.
[2017-06-29 08:06] LABS: BASOPHILS # (AUTO) 0.1 /CMM (0.0-0.2); BASOPHILS % (AUTO) 0.7 % (0.0-2.0); EOSINOPHILS # (AUTO) 0.6 /CMM (0.0-0.7); EOSINOPHILS % (AUTO) 6.1 % (0.0-6.0); HEMATOCRIT 23 % (39-51); HEMOGLOBIN 7.3 g/dL (13.5-17.5); LYMPHOCYTES # (AUTO) 1.5 /CMM (0.8-4.8); LYMPHOCYTES % (AUTO) 14.1 % (20.0-44.0); MEAN CORPUSCULAR HEMOGLOBIN 25 PG (26.0-33.0); MEAN CORPUSCULAR HGB CONC 32 g/dl (31.0-36.0); MEAN CORPUSCULAR VOLUME 77 fL (80-96); MONOCYTES # (AUTO) 0.6 /CMM (0.1-1.30); MONOCYTES % (AUTO) 6.2 % (2.0-12.0); NEUTROPHILS # (AUTO) 7.5 /CMM (1.8-8.9); NEUTROPHILS % (AUTO) 72.9 % (43.0-81.0); PLATELET COUNT (AUTO) 719 /CMM (150-450); RDW COEFFICIENT OF VARIATION 17.6 (11.5-15.0); RED BLOOD CELL COUNT(AUTO) 2.97 MIL/uL (4.5-6.0); WHITE BLOOD COUNT (AUTO) 10.3 K/uL (4.3-11.0)
--- NOTE | 2017-06-29 08:15 | NUR ---
BRADLEY BURTON RN: AUTOMOTIVE SERVICE CASHIER FOLLOW UP: CONSENT OBTAIN FROM PT REGARDING RIGHT FOOT DEBRIDEMENT, AT BEDSIDE REMOVING RIGHT FOOT CAST WITH PROPER TOOLS. AFTER CAST REMOVAL, SITE DEBRIDED BY MD. TOLERATED WELL. PHOTOS TAKEN PRIOR TO WOUND DEBRIDEMENT. MEDICATED WITH NORCO 1 TAB PRIOR TO DEBRIDEMENT AT [id number], AND ALSO RECEIVED VERBAL ORDER TO ADMINISTER MORPHINE 3MG X1 IVP. ORDER CARRIED OUT.
[2017-06-29 08:31] LABS: CALCIUM, SERUM 8.7 mg/dL (8.5-10.1); CREATININE 1.1 mg/dL (0.6-1.3); MAGNESIUM 1.8 mg/dL (1.8-2.4); PHOSPHORUS 3.8 mg/dL (2.5-4.9); POTASSIUM 4.4 mmol/L (3.5-5.1)
[2017-06-29] MEDS: HYDROCODONE/APAP 5/325MG 1 EACH TABLET PO PRN ×3 (08:39→20:19)
[2017-06-29] MEDS: PANTOPRAZOLE 40 MG TABLET.DR PO SCH (08:39)
[2017-06-29] MEDS: ENOXAPARIN SODIUM 40 MG/0.4 ML DISP.SYRIN SQ SCH (08:51)
[2017-06-29] MEDS ORDERED: MORPHINE SULFATE INJ 2 MG/ML DISP.SYRIN IV ONE (09:00)
--- NOTE | 2017-06-29 09:02 | NUR ---
BRADLEY BURTON RN: NOTES MEDICATED PT WITH MORPHINE 3MG IVP X1 PER MD ORDER. DRESSING TO RIGHT FOOT INTACT. TO RETURN AND RE-DO DEBRIDEMENT.
--- NOTE | 2017-06-29 11:45 | NUR ---
MED SURGE RN: NOTE DEBRIDEMENT DONE FOR THE SECOND TIME AT BEDSIDE BY DR. MUIR. PT TOLERATED PROCEDURE WELL. REDRESSED THE WOUND. CALL LIGHT WITHIN REACH.
--- NOTE | 2017-06-29 12:21 | NUR ---
MED SURGE RN: NOTE PT COMPLAINED OF 8 OUT OF 10 RIGHT FOOT PAIN, MEDICATED WITH MORPHINE 4MG IVP ORDERED. DRESSING TO RIGHT FOOD INTACT. INSTRUCTED TO CALL FOR ASSISTANCE.
--- NOTE | 2017-06-29 12:51 | NUR ---
BRADLEY BURTON RN: NOTE REASSESSED PAIN AND PT VERBALIZED RELIEF. INSTRUCTED TO CALL FOR ASSISTANCE.
[2017-06-29 16:00] VITALS: BP 158/92
[2017-06-29] MEDS: LACTOBACILLUS RHAMNOSUS GG 1 EACH CAP.SPRINK PO SCH (16:18)
--- NOTE | 2017-06-29 16:18 | NUR ---
BRADLEY BURTON RN: NOTE PT COMPLAINED OF 8 OUT OF 10 RIGHT FOOT PAIN, MEDICATED WITH NORCO 1 TAB PO ORDERED. DRESSING TO RIGHT FOOD INTACT. INSTRUCTED TO CALL FOR ASSISTANCE.
--- NOTE | 2017-06-29 17:18 | NUR ---
BRADLEY BURTON RN: NOTE REASSESSED PAIN AND PT VERBALIZED RELIEF. INSTRUCTED TO CALL FOR ASSISTANCE.
--- NOTE | 2017-06-29 17:30 | NUR ---
m/s notes: dr. dunn here and informed md that pt home meds hasn't been reconciled with order to continue home meds except for levaquin. order read back and carried out and acknowledged.
[2017-06-29] MEDS: GABAPENTIN 300 MG CAPSULE PO SCH (17:41)
--- NOTE | 2017-06-29 18:00 | NUR ---
BRADLEY BURTON RN: NOTES PT REMAINS STABLE. DRESSING TO RIGHT FOOT REMAINS CLEAN, DRY, AND INTACT. ENCOURAGED TO KEEP RIGHT FOOT ELEVATED WHILE IN BED. PAIN MANAGEMENT CONTROLLED. ALL NEEDS ATTENDED TO. CALL LIGHT WITHIN REACH.
--- NOTE | 2017-06-29 18:12 | NUR ---
BRADLEY BURTON RN: NOTE REASSESSED PAIN AND PT VERBALIZED RELIEF. INSTRUCTED TO CALL FOR ASSISTANCE
--- NOTE | 2017-06-29 19:00 | NUR ---
RN MS NOTES RECEIVED PT IN BED, A/O X 4, PATIENT NOT IN ACUTE DISTRESS, IV SITE INTACT NO S/S OF INFILTRATION. CALL LIGHT WITHIN REACH. SAFETY MEASURES IN PLACE, ON LOW BED, WILL CONTINUE TO MONITOR PT.
[2017-06-29 20:00] VITALS: BP 162/92
[2017-06-29] MEDS: INSULIN DETEMIR 100 UNIT/ML CARTRIDGE SQ SCH (21:24)
[2017-06-29] MEDS: *INSULIN REGULAR(HUMULIN R)HUM 100 UNIT/ML VIAL SQ PRN (21:26)
--- NOTE | 2017-06-29 22:00 | NUR ---
INSULIN REGULAR HS 4 UNITS NON ADMINISTRATION REFUSED BY THE PATIENT DESPITE EXPLANATION OF RISKS AND BENEFITS OFFERED 3 TIMES STILL REFUSED MSindi MADE AWARE
[2017-06-30] VITALS (15 sets, daily range): BP systolic 102–189; BP diastolic 66–103
[2017-06-30] MEDS: PIPERACILLIN /TAZOBACTAM 3.375 G in IV D5W 50 ML IV SCH ×4 (00:04→18:17)
[2017-06-30] MEDS: IV NS 0.9% 1,000 ML IV PRN (00:12)
[2017-06-30] MEDS: HYDROCODONE/APAP 5/325MG 1 EACH TABLET PO PRN (00:26)
[2017-06-30] MEDS: VANCOMYCIN 1.25 GM in IV D5W 500 ML IV SCH ×2 (01:23→13:58)
[2017-06-30] MEDS: MORPHINE SULFATE INJ 2 MG/ML DISP.SYRIN IV PRN ×3 (02:13→20:07)
[2017-06-30] MEDS: BLOOD SUGAR DIAGNOSTIC 1 EACH STRIP VI SCH ×4 (05:38→22:29)
[2017-06-30] MEDS: INSULIN REGULAR, HUMAN 100 UNIT/ML 3 ML VIAL SQ PRN ×2 (05:45→17:40)
--- NOTE | 2017-06-30 06:26 | NUR ---
MS RN NOTES PATIENT COMFORTABLY ASLEEP AND EASILY AWAKEN, A/O X 4, HEAD OF BED ELEVATED FOR BETTER LUNG EXPANSION. TOLERATING ROOM AIR 02 SAT AT 99% IV FLUIDS NS RUNNING AT 75 CC/HR TOLERATED WELL. IV SITE NO S/S OF INFILTRATED PATENT AND FLUSHED,NOT IN ACUTE DISTRESS. RESPIRATIONS EVEN AND UNLABORED, FREQUENT VISUAL CHECK DONE FOR SAFETY EVERY 2 HOURS. NO COMPLAINS OF CHEST PAIN THROUGHOUT THE 12 HOUR SHIFT. ON ATB WITH NO A/R NOTED. NURSING CARE RENDERED, NEEDS ATTENDED AND ANTICIPATED, NO S/S OF HYPO/HYPERGLYCEMIA, KEPT CLEAN AND DRY AND COMFORTABLE, GOOD SKIN CARE PROVIDED. OFFLOAD AT ALL TIMES. SAFE HAZARD FREE ENVIRONMENT PROVIDED. CALL LIGHT WITHIN EASY TO REACH, ON LOW BED AT ALL TIMES TO ENSURE SAFETY, WILL ENDORSE TO THE NEXT SHIFT CONTINUE PLAN OF CARE
[2017-06-30 07:39] LABS: BASOPHILS # (AUTO) 0.1 /CMM (0.0-0.2); BASOPHILS % (AUTO) 0.8 % (0.0-2.0); EOSINOPHILS # (AUTO) 0.5 /CMM (0.0-0.7); EOSINOPHILS % (AUTO) 6.7 % (0.0-6.0); LYMPHOCYTES # (AUTO) 1.4 /CMM (0.8-4.8); LYMPHOCYTES % (AUTO) 17.1 % (20.0-44.0); MEAN CORPUSCULAR HEMOGLOBIN 24 PG (26.0-33.0); MEAN CORPUSCULAR HGB CONC 31 g/dl (31.0-36.0); MEAN CORPUSCULAR VOLUME 77 fL (80-96); MONOCYTES # (AUTO) 0.6 /CMM (0.1-1.30); MONOCYTES % (AUTO) 7.4 % (2.0-12.0); NEUTROPHILS # (AUTO) 5.5 /CMM (1.8-8.9); PLATELET COUNT (AUTO) 584 /CMM (150-450); RDW COEFFICIENT OF VARIATION 17.4 (11.5-15.0); RED BLOOD CELL COUNT(AUTO) 2.54 MIL/uL (4.5-6.0)
[2017-06-30 07:52] LABS: HEMATOCRIT 20 % (39-51); HEMOGLOBIN 6.1 g/dL (13.5-17.5)
[2017-06-30 07:58] LABS: CALCIUM, SERUM 7.9 mg/dL (8.5-10.1); CREATININE 1.1 mg/dL (0.6-1.3); MAGNESIUM 1.6 mg/dL (1.8-2.4); PHOSPHORUS 4.4 mg/dL (2.5-4.9); POTASSIUM 4.3 mmol/L (3.5-5.1)
--- NOTE | 2017-06-30 08:03 | NUR ---
RN MS NOTES RECEIVED PATIENT IN BED, AWAKE AND VERBALLY RESPONSIVE. PATIENT DENIES PAIN, DENIES SOB. NO S/S OF HYPO/HYPERGLYCEMIA NOTED. IV LINE ON LAC PATENT, INFUSING NS AT 75ML/HR. ALL NEEDS MET, CALL LIGHT WITHIN REACH.
[2017-06-30 08:18] LABS: BAND % (MANUAL) 1 % (0.0-5.0); EOSINOPHILS % (MANUAL) 7 % (0-4); LYMPHOCYTES % (MANUAL) 16 % (16-48); MONOCYTES % (MANUAL) 4 % (0-11.0); NEUTROPHILS % (MANUAL) 72 (42-76)
[2017-06-30] MEDS: GABAPENTIN 300 MG CAPSULE PO SCH ×3 (08:42→17:38)
[2017-06-30] MEDS: LACTOBACILLUS RHAMNOSUS GG 1 EACH CAP.SPRINK PO SCH ×2 (08:42→17:38)
[2017-06-30] MEDS: PANTOPRAZOLE 40 MG TABLET.DR PO SCH (08:45)
[2017-06-30] MEDS: INSULIN DETEMIR 100 UNIT/ML CARTRIDGE SQ SCH ×2 (08:52→22:22)
[2017-06-30] MEDS: ENOXAPARIN SODIUM 40 MG/0.4 ML DISP.SYRIN SQ SCH (09:00)
--- NOTE | 2017-06-30 11:59 | NUR ---
RN MS NOTES BLOOD TRANSFUSION STARTED, TOLERATING WELL. SAFETY CHECKS DONE BY TWO RNS.
--- NOTE | 2017-06-30 13:00 | NUR ---
RN MS NOTES WIRED MUSIC OPERATOR UNABLE TO DRAW VANCO THROUGH DUE TO PATIENT RECEIVING BLOOD. PHARMACY AWARE. PER DIMAS GUAJARDO TO GIVE DOSE. WILL CHECK TROUGH PRIOR TO NEXT DOSE.
--- NOTE | 2017-06-30 14:53 | NUR ---
RN MS NOTES 1 UNIT PRBCS COMPLETE, NO S/S OF REACTIONS NOTED. VITALS STABLE.
--- NOTE | 2017-06-30 14:57 | NUR ---
DEMETRIUS received a social service consult for an Advance directive form. DEMETRIUS called Med Surg ISAURO Olvera and informed her that SW had already seen pt. and given him the Advance health care Directive form earlier this week. ISAURO Olvera informed SW that pt. is wants to be DNR and needs a POLST. DEMETRIUS informed ISAURO Olvera, she will give the form to JONATHON Suarez to give to her when she comes to her meeting.
--- NOTE | 2017-06-30 15:00 | NUR ---
JONATHON MS NOTES INFORMED PILY JACKSON OF INCREASED BP WITH NEW ORDERS, ALL ORDERS NOTED AND CARRIED OUT.
[2017-06-30] MEDS ORDERED: hydrALAZINE HCL 25 MG TABLET PO ONE ×2 (15:30→23:00)
--- NOTE | 2017-06-30 18:23 | NUR ---
RN MS NOTES PATIENT TOLERATED FFP TRANSFUSION WELL. NO S/S OF REACTION NOTED.
[2017-06-30] MEDS ORDERED: CLONIDINE HCL 0.1 MG TABLET PO ONE (18:30)
--- NOTE | 2017-06-30 18:30 | NUR ---
RN MS NOTES INFORMED PILY JACKSON THAT BLOOD PRESSURE WAS STILL ELEVATED. NEW ORDERS GIVEN, ALL ORDERS NOTED AND CARRIED OUT.
[2017-06-30] MEDS: Magnesium 1GM/D5W 100ML PREMIX 100 ML IV SCH ×2 (18:54→20:08)
--- NOTE | 2017-06-30 18:55 | NUR ---
RN MS CLOSING NOTES PATIENT IN BED, VERBALLY RESPONSIVE, IN NO APPARENT DISTRESS. PATENT DENIES PAIN AND DENIES SOB. DRESSING CHANGED BY DR JETER X2 TIMES. ALL DUE MEDS GIVEN, CALL LIGHT WITHIN REACH. IV LINE ON LAC AND RFA PATENT. PATIENT RECEIVED 1 UNIT OF PRBCS AND 1 UNIT OP FFP. PATIENT TOLERATED WELL WITH NO S/S OF REACTIONS NOTED.PATIENT TO RECEIVE 1 MORE UNIT OF PRBC, PM RN AWARE. WILL ENDORSE CARE TO PM SHIFT.
--- NOTE | 2017-06-30 19:30 | NUR ---
MS/RN OPENING NOTES PT RECEIVED SITTING UP IN BED, ON HIS LAPTOP. A/OX4, ON RA, BREATHING EVEN AND UNLABORED. NO S/S OF DISTRESS NOTED. RATES PAIN TO RIGHT FOOT 8/10, REQUESTING PAIN MEDICATION. RIGHT FOOT WRAPPED IN DRESSING. PT AWARE OF NEED TO COLLECT STOOL FOR OB. HAT PLACED IN THE TOILET. IV TO LAC PATENT AND INTACT CURRENTLY RUNNING MAGNESIUM AND IV TO RFA PATENT AND INTACT. PT AWARE OF 1 MORE UNIT OF PRBC'S. BED IN LOW/LOCKED POSITION WITH CALL LIGHT IN REACH. SIDE RAILS UPX2. WILL CONTINUE TO MONITOR
[2017-06-30] MEDS ORDERED: LEVOFLOXACIN (500MG) 500 MG TABLET PO SCH (20:00)
[2017-06-30] MEDS ORDERED: LEVOFLOXACIN 500 MG /D5W 100ML 500 MG in PREMIX 1 EA IV SCH (20:00)
--- NOTE | 2017-06-30 20:14 | NUR ---
MS/RN NOTES LAST BAG OF MAGNESIUM ADMINISTERED. ALSO, ADMINISTERED LEVAQUIN 500MG PO ORDERED. HOWEVER ORDERED WAS CHANGED TO LEVAQUIN 500MG IV. NOTIFIED PHARMACY AND WILL CHANGE NEXT DOSE FOR TOMORROW SINCE PT ALREADY RECEIVED LEVAQUIN PO.
[2017-06-30] MEDS: CEFTRIAXONE 1 G in IV D5W 50 ML IV SCH (21:24)
[2017-06-30] MEDS: *INSULIN REGULAR(HUMULIN R)HUM 100 UNIT/ML VIAL SQ PRN (22:22)
--- NOTE | 2017-06-30 22:38 | NUR ---
MS/RN NOTES NOTIFIED DR. SAN OF GZ=349/103 HR=92 AND RECHECK ON OTHER ARM 169/98, HR=91. MADE AWARE OF NEED TO TRANSFUSE 1 MORE UNIT OF PRBC'S. INFORMED HER THAT HE ALREADY RECEIVED HYDRALAZAINE AND CATAPRES THIS AFTERNOON AND I GAVE HIM PRN MORPHINE AROUND 1999. ORDERED ONE TIME DOSE OF HYDRALAZINE 25MG PO AND OKAY TO INFUSE BLOOD. ALSO ORDERED PRN HYDRALAZINE 25MG PO Q6H FOR SBP>160. ORDERS NOTED AND CARRIED OUT.
[2017-06-30] MEDS ORDERED: hydrALAZINE HCL 25 MG TABLET ONE (22:39)
--- NOTE | 2017-06-30 23:15 | NUR ---
MS/RN NOTES AT BEDSIDE WITH PT, DENIES ANY CHILLS, FLANK PAIN OR SOB. NO FEVER NOTED. NO OTHER ADVERSE REACTIONS NOTED. WILL CONTINUE TO MONITOR
[2017-07-01 00:13] VITALS: BP 155/96
[2017-07-01] MEDS: HYDROCODONE/APAP 5/325MG 1 EACH TABLET PO PRN ×3 (00:13→19:15)
[2017-07-01 02:05] VITALS: BP 151/86
--- NOTE | 2017-07-01 02:15 | NUR ---
MS/RN NOTES 1 UNIT OF PRBC'S INFUSED. NO ADVERSE REACTIONS NOTED. PT TOLERATED WELL. WILL CONTINUE TO MONITOR
[2017-07-01] MEDS: MORPHINE SULFATE INJ 2 MG/ML DISP.SYRIN IV PRN ×3 (06:18→22:37)
[2017-07-01 06:26] LABS: BASOPHILS % (AUTO) 0.4 % (0.0-2.0); EOSINOPHILS # (AUTO) 0.5 /CMM (0.0-0.7); EOSINOPHILS % (AUTO) 5.7 % (0.0-6.0); HEMATOCRIT 26 % (39-51); HEMOGLOBIN 8.5 g/dL (13.5-17.5); LYMPHOCYTES # (AUTO) 1.5 /CMM (0.8-4.8); LYMPHOCYTES % (AUTO) 17.1 % (20.0-44.0); MEAN CORPUSCULAR HEMOGLOBIN 26 PG (26.0-33.0); MEAN CORPUSCULAR HGB CONC 33 g/dl (31.0-36.0); MEAN CORPUSCULAR VOLUME 79 fL (80-96); MONOCYTES # (AUTO) 0.7 /CMM (0.1-1.30); MONOCYTES % (AUTO) 7.6 % (2.0-12.0); NEUTROPHILS # (AUTO) 6.2 /CMM (1.8-8.9); NEUTROPHILS % (AUTO) 69.2 % (43.0-81.0); PLATELET COUNT (AUTO) 638 /CMM (150-450); RDW COEFFICIENT OF VARIATION 18.1 (11.5-15.0); RED BLOOD CELL COUNT(AUTO) 3.32 MIL/uL (4.5-6.0)
[2017-07-01 06:38] LABS: CALCIUM, SERUM 8.4 mg/dL (8.5-10.1); CREATININE 1.1 mg/dL (0.6-1.3); MAGNESIUM 1.9 mg/dL (1.8-2.4); PHOSPHORUS 4.2 mg/dL (2.5-4.9); POTASSIUM 4.1 mmol/L (3.5-5.1)
--- NOTE | 2017-07-01 06:38 | NUR ---
MS/RN CLOSING NOTES PT AWAKE, A/OX4, REMAINS ON RA, BREATHING EVEN AND UNLABORED. DENIES SOB. ADMINISTERED PRN MORPHINE FOR PAIN TO THE RIGHT FOOT 06/17. OB STOOL COLLECTED AND RESULTED NEGATIVE. REINFORCED DRESSING TO RIGHT FOOT. IV TO RFA PATENT AND INTACT. REPLACED 1 BAG OF MAGNESIUM AND 1 UNIT OF PRBC'S DURING SHIFT. PT TOLERATED WELL. NO ADVERSE REACTIONS NOTED. PT TO HAVE WOUND VAC. MADE PT COMFORTABLE THROUGHOUT SHIFT. ALL NEEDS MET AND ATTENDED. BED IN LOW/LOCKED POSITION WITH CALL LIGHT IN REACH. SIDE RAILS UPX2. WILL ENDORSE TO AM SHIFT LUIS.
[2017-07-01] MEDS: BLOOD SUGAR DIAGNOSTIC 1 EACH STRIP VI SCH ×4 (06:59→21:20)
--- NOTE | 2017-07-01 07:59 | NUR ---
RN NOTES RECEIVED PT. PT IS STABLE AND RESTING IN BED. A/O X 4. NO S/S OF DISTRESS OR SOB, NO C/O PAIN. IV ACCESS LOCATED ON RIGHT FOREARM 22G, RUNNING NS AT 75 ML/HR. AWAITING WOUND VAC FOR RIGHT FOOT WOUND. SAFETY MEASURES IN PLACE, WILL CONTINUE TO MONITOR.
[2017-07-01 08:00] VITALS: BP 163/91
[2017-07-01] MEDS: LACTOBACILLUS RHAMNOSUS GG 1 EACH CAP.SPRINK PO SCH ×2 (08:41→17:07)
[2017-07-01] MEDS: PANTOPRAZOLE 40 MG TABLET.DR PO SCH (08:41)
[2017-07-01] MEDS: ACIDOPHILUS/BULGARICUS 1 EACH TAB.CHEW PO SCH ×3 (08:41→17:07)
[2017-07-01] MEDS: GABAPENTIN 300 MG CAPSULE PO SCH ×3 (08:41→17:07)
[2017-07-01] MEDS: INSULIN DETEMIR 100 UNIT/ML CARTRIDGE SQ SCH ×2 (08:48→21:24)
[2017-07-01] MEDS: INSULIN REGULAR, HUMAN 100 UNIT/ML 3 ML VIAL SQ PRN ×2 (12:08→17:14)
--- NOTE | 2017-07-01 14:53 | NUR ---
RN NOTES WOUND VAC DELIVERED, PLACED AT PT'S BEDSIDE. CONTACTED [employer] FOR DELIVERY OF WOUND VAC CANNISTERS, FOAM, AND DRESSING. WILL FOLLOW UP WITH [employer].
[2017-07-01 16:00] VITALS: BP 150/92
--- NOTE | 2017-07-01 18:45 | NUR ---
RN CLOSING NOTE PT IS AWAKE AND IN BED. A/OX4. NO S/S OF DISTRESS OR SOB. PT C/O PAIN IN RIGHT FOOT. PHARMACOLOGICAL AND NON-PHARMACOLOGICAL INTERVENTIONS UTILIZED TO DECREASE PAIN. WOUND DEBRIDEMENT PERFORMED, WELL TOLERATED. WOUND VAC RECEIVED AND IS AT BEDSIDE. VENOUS DOPPLER PERFORMED IN THE AM WITH UNREMARKABLE RESULTS. IV ACCESS LOCATED ON RIGHT FA, 22G RUNNING NS AT 75 ML/HR. SAFETY MEASURES IN PLACE, CALL LIGHT WITHIN REACH. WILL ENDORSE TO MUSHROOM SORTER GRADER FOR LUIS.
--- NOTE | 2017-07-01 19:30 | NUR ---
MS/RN OPENING NOTES PT AWAKE, SITTING UP IN BED. ON RA, BREATHING EVEN AND UNLABORED. A/OX4. NOTES PAIN TO RIGHT FOOT AT A TOLERABLE LEVEL CURRENTLY. DENIES SOB. IV TO RFA PATENT AND INTACT. S/P DEBRIDEMENT TODAY. WOUND VAC TO BE PLACED TOMORROW WITH DR. MUIR. WOUND VAC AND SUPPLIES AT BEDSIDE. BED IN LOW/LOCKED POSITION, CALL LIGHT IN REACH. SIDE RAILS UPX2. WILL CONTINUE TO MONITOR
[2017-07-01 20:00] VITALS: BP 156/96
[2017-07-01] MEDS: CEFTRIAXONE 1 G in IV D5W 50 ML IV SCH (20:02)
[2017-07-01] MEDS: LEVOFLOXACIN 500 MG /D5W 100ML 500 MG in PREMIX 1 EA IV SCH (21:17)
[2017-07-01] MEDS: *INSULIN REGULAR(HUMULIN R)HUM 100 UNIT/ML VIAL SQ PRN (21:25)
--- NOTE | 2017-07-01 22:42 | NUR ---
MS/RN NOTES PT REQUESTING PAIN MEDICATION. ADMINISTERED PRN MORPHINE 4MG IV ORDERED. WILL MONITOR FOR EFFECTIVENESS
[2017-07-02] MEDS: MORPHINE SULFATE INJ 2 MG/ML DISP.SYRIN IV PRN (04:08)
[2017-07-02] MEDS: BLOOD SUGAR DIAGNOSTIC 1 EACH STRIP VI SCH ×4 (06:36→21:09)
[2017-07-02] MEDS: IV NS 0.9% 1,000 ML IV PRN (06:36)
--- NOTE | 2017-07-02 07:20 | NUR ---
MS/RN CLOSING NOTES PT AWAKE, A/OX4. REMAINS ON RA, BREATHING EVEN AND UNLABORED. DENIES SOB AT THIS TIME. IV TO RFA PATENT AND INTACT. WOUND VAC TO BE PLACED TODAY WITH DR. MUIR. SUPPLIES AT BEDSIDE. MADE PT COMFORTABLE DURING SHIFT. DRESSING TO RIGHT FOOT INTACT. ELEVATED ON 2 PILLOWS. ALL NEEDS MET AND ATTENDED DURING SHIFT. BED IN LOW/LOCKED POSITION. ENDORSED TO AM SHIFT LUIS.
--- NOTE | 2017-07-02 07:38 | NUR ---
RN NOTES RECEIVED PT. PT IS STABLE AND AWAKE IN BED. A/OX4. NO S/S OF DISTRESS OR SOB. PT IS ON RA. PT HAS C/O PAIN, TOTAL OF 6. WILL CONTINUE PAIN MANAGEMENT WITH PHARMACOLOGICAL AND NON-PHARMACOLOGICAL INTERVENTIONS. PLAN OF CARE INCLUDES WOUND CONSULTATION AND APPLICATION OF WOUND VAC TO RIGHT FOOT, ALL SUPPLIES ARE AT BEDSIDE. IV ACCESS LOCATED ON RIGHT FOREARM, 22G RUNNING NS AT 75 ML/HR. SAFETY MEASURES IN PLACE, CALL LIGHT WITHIN REACH. WILL CONTINUE TO MONITOR.
[2017-07-02 07:53] LABS: BASOPHILS # (AUTO) 0.1 /CMM (0.0-0.2); BASOPHILS % (AUTO) 0.7 % (0.0-2.0); EOSINOPHILS # (AUTO) 0.5 /CMM (0.0-0.7); EOSINOPHILS % (AUTO) 5.6 % (0.0-6.0); HEMATOCRIT 26 % (39-51); HEMOGLOBIN 8.2 g/dL (13.5-17.5); LYMPHOCYTES # (AUTO) 1.5 /CMM (0.8-4.8); MEAN CORPUSCULAR HEMOGLOBIN 25 PG (26.0-33.0); MEAN CORPUSCULAR HGB CONC 32 g/dl (31.0-36.0); MEAN CORPUSCULAR VOLUME 79 fL (80-96); MONOCYTES # (AUTO) 0.8 /CMM (0.1-1.30); MONOCYTES % (AUTO) 9.1 % (2.0-12.0); NEUTROPHILS # (AUTO) 5.6 /CMM (1.8-8.9); NEUTROPHILS % (AUTO) 66.6 % (43.0-81.0); PLATELET COUNT (AUTO) 615 /CMM (150-450); RDW COEFFICIENT OF VARIATION 18.5 (11.5-15.0); RED BLOOD CELL COUNT(AUTO) 3.27 MIL/uL (4.5-6.0); WHITE BLOOD COUNT (AUTO) 8.4 K/uL (4.3-11.0)
[2017-07-02] MEDS: HYDROCODONE/APAP 5/325MG 1 EACH TABLET PO PRN (07:55)
[2017-07-02] MEDS: PANTOPRAZOLE 40 MG TABLET.DR PO SCH (07:56)
[2017-07-02 08:00] VITALS: BP 163/94
[2017-07-02] MEDS: GABAPENTIN 300 MG CAPSULE PO SCH ×3 (08:00→17:22)
[2017-07-02] MEDS: LACTOBACILLUS RHAMNOSUS GG 1 EACH CAP.SPRINK PO SCH ×2 (08:00→17:22)
[2017-07-02] MEDS: ACIDOPHILUS/BULGARICUS 1 EACH TAB.CHEW PO SCH ×3 (08:01→17:22)
[2017-07-02] MEDS: INSULIN DETEMIR 100 UNIT/ML CARTRIDGE SQ SCH ×2 (08:01→23:18)
[2017-07-02 08:13] LABS: CALCIUM, SERUM 8.4 mg/dL (8.5-10.1); MAGNESIUM 1.8 mg/dL (1.8-2.4); POTASSIUM 3.9 mmol/L (3.5-5.1)
[2017-07-02] MEDS ORDERED: HYDROGEL DRESSING 90 GM TUBE TP PRN (10:30)
--- NOTE | 2017-07-02 10:46 | NUR ---
RN NOTES WOUND DEBRIDEMENT PERFORMED, WELL TOLERATED. PHYSICIAN TO RETURN TO THE UNIT IN ORDER TO APPLY WOUND VAC TO RIGHT FOOT. WILL CONTINUE TO MONITOR.
[2017-07-02] MEDS: MORPHINE SULFATE INJ 4 MG/ML DISP.SYRIN IV PRN ×3 (14:42→23:49)
--- NOTE | 2017-07-02 15:02 | NUR ---
RN NOTES PT SEEN BY DR. MCKEON. PT C/O WOUND VAC "NOT FEELING IF ITS WORKING RIGHT". WOUND VAC DRESSING REMOVED AND CHANGED, WELL TOLERATED. ADDITIONAL WOUND VAC SUPPLIES ORDERED AND PLACED AT BEDSIDE. WILL CONTINUE TO MONITOR.
--- NOTE | 2017-07-02 16:23 | NUR ---
JONATHON NOTES APPLY TRIPLE ANTIBIOTIC OINTMENT TO WOUND ON THE HEEL OF THE RIGHT FOOT THEN COVER WITH MEPILEX. Addendum: 07/02/17 at 1626 by AYANA SANFORD Amended: Links added.
--- NOTE | 2017-07-02 16:45 | NUR ---
spoke with patient,he want to return home on discharge, He is currently on service with [facility] [phone]. His home wound vac and supplies is available per Wound clinic . Addendum: 07/02/17 at 1646 by KUMAR JIANG RN Amended: Links added.
--- NOTE | 2017-07-02 16:51 | NUR ---
spoke with patient,he want to return home on discharge, He is currently on service with [facility] [phone]. His home wound vac and supplies is available per Wound clinic. For IV abx needs, can use [facility] [phone] (was on there service before) Addendum: 07/02/17 at 1652 by KUMAR JIANG RN Amended: Links added.
[2017-07-02] MEDS: NEOMY SULF/BACITRAC ZN/POLY 15 GM TUBE TP SCH (17:22)
--- NOTE | 2017-07-02 18:45 | NUR ---
RN CLOSING NOTE PT IS AWAKE AND IN BED. NO S/S OF DISTRESS OR SOB. NO C/O PAIN. RIGHT FOOT WOUND VAC DRESSING CHANGED ONCE AGAIN BY DR. MUIR. WOUND VAC HAS COLLECTED [address] MUIR OR RESIDENT TO F/U TOMORROW 07/03. NEW WOUND DRESSING CHANGE ORDER RECEIVED. ALL PATIENT NEEDS ANTICIPATED AND MET. SAFETY MEASURES IN PLACE. WILL ENDORSE TO DIAMOND DIE POLISHER FOR LUIS.
--- NOTE | 2017-07-02 19:15 | NUR ---
MS RN NOTES RECEIVED ON BED A/O [id number] REGULAR,NOT IN ANY FORM OF DISTRESS.RIGHT FOOT DRESSING INTACT AND DRY,WOUND VAC IN PLACE,NO DISCHARGES NOTED ON THE CANISTER.SALINE LOCK RFA INTACT AND PATENT.IVF AT 75ML/HR RATE RE STARTED.ABLE TO AMBULATE TO THE TOILET WITH WALKER.C/O PAIN 8-9/10 ON PAIN SCALE.WILL MEDICATE.NOTED RIGHT FOOT SWELLING WITH REDNESS.ENCOURAGE TO ELEVATE ON PILLOWS.CALL LIGHT IN REACH,NEEDS ANTICIPATED.
[2017-07-02] MEDS: hydrALAZINE HCL 25 MG TABLET PO PRN (19:53)
--- NOTE | 2017-07-02 19:53 | NUR ---
MS RN NOTES BLOOD PRESSURE 167/107,WITH PAIN VIA RIGHT FOOT 07/18.MEDICATED WITH APRESOLINE 25MG PO ORDERED FOR SB>160 PRN.WILL RE ASSESS.
[2017-07-02] MEDS: CEFTRIAXONE 1 G in IV D5W 50 ML IV SCH (19:54)
--- NOTE | 2017-07-02 19:54 | NUR ---
MS RN NOTES PAIN MANAGEMENT C/O PAIN 9/10 ON PAIN SCALE VIA RIGHT FOOT.MEDICATED WITH MORPHINE 4MG IVP ORDERED.WILL MONITOR FOR RELIEF.
[2017-07-02 20:00] VITALS: BP 167/107
[2017-07-02] MEDS: LEVOFLOXACIN 500 MG /D5W 100ML 500 MG in PREMIX 1 EA IV SCH (20:34)
[2017-07-02] MEDS: *INSULIN REGULAR(HUMULIN R)HUM 100 UNIT/ML VIAL SQ PRN (21:13)
--- NOTE | 2017-07-02 21:30 | NUR ---
MS RN NOTES ACCU-CHECK BLOOD SUGAR CHECK 155,REFUSED HUMULIN R COVERAGE.WANTS LEVEMIR IN A LITTLE WHILE AFTER HE EAT PIZZA THAT HE ORDERED.
--- NOTE | 2017-07-02 23:18 | NUR ---
MS RN NOTES LEVEMIR 18 UNITS SELF ADMINISTERED BY PATIENT VIA LEFT LOWER ABDOMEN,AFTER HE ATE PIZZA.
--- NOTE | 2017-07-02 23:49 | NUR ---
MS RN NOTES PAIN MANAGEMENT C/O PAIN 9/10 ON PAIN SCALE VIA RIGHT FOOT,MEDICATED WITH MORPHINE 4MG IVP ORDERED.BLOOD PRESSURE ON THE HIGH SIDE 178/114,PULSE 142.DENIES HEADACHE NOR CHEST PAIN.REFUSED TO BE BOTHERED/MANAGEMENT FOR BLOOD PRESSURE AFTER MIDNIGHT.
--- NOTE | 2017-07-03 00:10 | NUR ---
MS RN NOTES MD SAN WAS PAGE,AWAITING TO CALL BACK.
--- NOTE | 2017-07-03 01:27 | NUR ---
MS RN NOTES DR SAN CALLED BACK,MADE AWARE OF PATIENT HIGH BLOOD PRESSURE AND PATIENT BEHAVIOR THAT HE DOESNT WANT TO BE BOTHER ABOUT HIS BLOOD PRESSURE,ONLY PAIN MANAGEMENT THAT HE WANTED TO BE.ALSO MADE AWARE THAT IVF FLUIDS HELD DUE TO HIGH BLOOD PRESSURE,DR SAN SAID [place].
--- NOTE | 2017-07-03 06:00 | NUR ---
MS RN NOTES ACCU-CHECK BLOOD SUGAR CHECK 71,NO INSULIN COVERAGE.PATIENT STARTED TO EAT HIS PIZZA AT BEDSIDE.
[2017-07-03] MEDS: BLOOD SUGAR DIAGNOSTIC 1 EACH STRIP VI SCH ×4 (06:10→21:37)
[2017-07-03] MEDS: MORPHINE SULFATE INJ 4 MG/ML DISP.SYRIN IV PRN ×4 (06:24→21:39)
--- NOTE | 2017-07-03 06:24 | NUR ---
MS RN NOTES PAIN MANAGEMENT C/O PAIN VIA RIGHT FOOT,MEDICATED WITH MORPHINE 4MG IVP ORDERED AND PER PATIENT REQUEST.
[2017-07-03] MEDS: hydrALAZINE HCL 25 MG TABLET PO PRN (06:35)
--- NOTE | 2017-07-03 06:45 | NUR ---
MS RN NOTES AMBULATE TO THE TOILET.DENIES DIZZINESS
--- NOTE | 2017-07-03 06:58 | NUR ---
MS RN NOTES A/O X 4,AMBULATORY,PAIN MANAGEMENT EFFECTIVE.IVF STILL HELD. BLOOD PRESSURE REMAINS HIGH.CALL LIOGHT IN REAC,NEEDS ATTENDED.WILL ENDORSE TO DAY NURSE FOR LUIS.
--- NOTE | 2017-07-03 07:35 | NUR ---
RN NOTES RECEIVED PT. PT IS STABLE IN BED RESTING. A/OX4. NO S/S OF DISTRESS OR SOB. NO C/O PAIN AT THIS TIME, PAIN MEDICATION GIVEN BY RECORD KEEPER. IV ACCESS LOCATED ON RIGHT FOREARM 22G SL. PT HAS HAD ELEVATED BP THROUGHOUT THE NIGHT, REFUSES BP MEDICATIONS. MD MADE AWARE. SAFETY MEASURES IN PLACE, CALL LIGHT WITHIN REACH. WILL CONTINUE TO MONITOR.
[2017-07-03 07:39] LABS: BASOPHILS % (AUTO) 0.4 % (0.0-2.0); EOSINOPHILS # (AUTO) 0.6 /CMM (0.0-0.7); EOSINOPHILS % (AUTO) 5.8 % (0.0-6.0); HEMATOCRIT 32 % (39-51); HEMOGLOBIN 10.3 g/dL (13.5-17.5); LYMPHOCYTES # (AUTO) 1.5 /CMM (0.8-4.8); LYMPHOCYTES % (AUTO) 15.6 % (20.0-44.0); MEAN CORPUSCULAR HEMOGLOBIN 25 PG (26.0-33.0); MEAN CORPUSCULAR HGB CONC 32 g/dl (31.0-36.0); MEAN CORPUSCULAR VOLUME 79 fL (80-96); MONOCYTES # (AUTO) 0.5 /CMM (0.1-1.30); MONOCYTES % (AUTO) 5.4 % (2.0-12.0); NEUTROPHILS # (AUTO) 7.1 /CMM (1.8-8.9); NEUTROPHILS % (AUTO) 72.8 % (43.0-81.0); PLATELET COUNT (AUTO) 711 /CMM (150-450); RDW COEFFICIENT OF VARIATION 18.9 (11.5-15.0); RED BLOOD CELL COUNT(AUTO) 4.06 MIL/uL (4.5-6.0); WHITE BLOOD COUNT (AUTO) 9.8 K/uL (4.3-11.0)
--- NOTE | 2017-07-03 07:58 | NUR ---
RN NOTES PT REFUSES TO HAVE VS TAKEN. WILL DISCUSS RISKS ASSOCIATED WITH NON-COMPLIANCE OF CARE.
[2017-07-03 08:14] LABS: CALCIUM, SERUM 8.6 mg/dL (8.5-10.1); CREATININE 1.1 mg/dL (0.6-1.3); MAGNESIUM 1.8 mg/dL (1.8-2.4); PHOSPHORUS 4.6 mg/dL (2.5-4.9)
[2017-07-03] MEDS: PANTOPRAZOLE 40 MG TABLET.DR PO SCH (08:38)
[2017-07-03] MEDS: LACTOBACILLUS RHAMNOSUS GG 1 EACH CAP.SPRINK PO SCH ×2 (08:38→17:30)
[2017-07-03] MEDS: GABAPENTIN 300 MG CAPSULE PO SCH ×3 (08:38→17:30)
[2017-07-03] MEDS: ACIDOPHILUS/BULGARICUS 1 EACH TAB.CHEW PO SCH ×3 (08:38→17:30)
[2017-07-03] MEDS: INSULIN DETEMIR 100 UNIT/ML CARTRIDGE SQ SCH ×2 (08:41→21:49)
[2017-07-03] MEDS: HYDROGEL DRESSING 90 GM TUBE TP SCH (08:41)
[2017-07-03] MEDS: NEOMY SULF/BACITRAC ZN/POLY 15 GM TUBE TP SCH ×2 (08:54→17:33)
[2017-07-03] MEDS: HYDROCODONE/APAP 5/325MG 1 EACH TABLET PO PRN (09:02)
[2017-07-03] MEDS: hydrALAZINE HCL 50 MG TABLET PO PRN (12:24)
[2017-07-03] MEDS: INSULIN REGULAR, HUMAN 100 UNIT/ML 3 ML VIAL SQ PRN ×2 (12:38→21:48)
--- NOTE | 2017-07-03 12:55 | NUR ---
RN NOTES PT HAS AGREED TO COMPLY WITH PLAN OF CARE. VS TAKEN, BLOOD PRESSURE ELEVATED TO 164/99. MD MADE AWARE. PRN BP MEDICATION GIVEN. WILL MONITOR EFFECTIVENESS.
--- NOTE | 2017-07-03 19:14 | NUR ---
RN CLOSING NOTES PT IS STABLE AND RESTING IN BED. NO S/S OF DISTRESS OR SOB. WOUND CARE PERFORMED ON THE RIGHT FOOT X 2. NO C/O PAIN AT THIS TIME. ALL PATIENT NEEDS ANTICIPATED AND MET. SAFETY MEASURES IN PLACE, CALL LIGHT WITHIN REACH. WILL ENDORSE TO DREDGEMASTER FOR LUIS.
--- NOTE | 2017-07-03 19:20 | NUR ---
MS RN NOTES RECEIVED ON BED SLEEPING.BREATHING REGULAR,NOT IN ANY FORM OF DISTRESS.IVF ON HOLD FOR INCREASED BP READING.RIGHT FOOT DRESSING INTACT AND DRY,WOUND VAC IN PLACE WITH SCANTY OUTPUT.SALINE LOCK RFA INTACT AND PATENT.RIGHT LOWER LEG REMAIN SWOLLEN WITH SLIGHT REDNESS NOTED.CALL LIGHT IN REACH,NEEDS ANTICIPATED.
[2017-07-03 20:00] VITALS: BP 119/72
--- NOTE | 2017-07-03 20:00 | NUR ---
MS RN NOTES MD VISIT SEEN BY DR MUIR,DRESSING DONE ON RIGHT FOOT BY MD,KEPT ELEVATED ON PILLOW
--- NOTE | 2017-07-03 20:00 | NUR ---
MS RN NOTES PATIENT STATE,DO WHAT EVER YOU WANT TO DO NOW,CHECK MY BLOOD PRESSURE,MY BLOOD SUGAR AND AFTER THAT I DONT WANT TO BE BOTHER FOR BLOOD PRESSURE,RE CHECK WHAT SO EVER.ALL I NEED IS PAIN MANAGEMENT,I WILL CALL WHEN I NEED IT".
[2017-07-03] MEDS: CEFTRIAXONE 1 G in IV D5W 50 ML IV SCH (20:03)
[2017-07-03] MEDS: LEVOFLOXACIN 500 MG /D5W 100ML 500 MG in PREMIX 1 EA IV SCH (20:03)
--- NOTE | 2017-07-03 20:15 | NUR ---
MS RN NOTES NEW SALINE LOCK PLACE ON LEFT FOREARM,DUE IV ABX ADMINISTERED
--- NOTE | 2017-07-03 21:39 | NUR ---
MS RN NOTES PAIN MANAGEMENT C/O PAIN VIA RIGHT FOOT,MEDICATED WITH MORPHINE 4MG IVP ORDERED.WILL MONITOR FOR RELIEF.
--- NOTE | 2017-07-03 22:00 | NUR ---
MS RN NOTES ACCU-CHECK BLOOD SUGAR CHECK 275,HUMULIN R 6 UNITS SELF ADMINISTERED BY PATIENT VIA LEFT LOWER ABDOMEN,ALONG WITH LEVEMIR 18 UNITS SCHEDULED. SNACKS PROVIDED AT BEDSIDE.
[2017-07-04] MEDS: HYDROCODONE/APAP 10/325MG 1 EA TABLET PO PRN ×4 (00:09→20:31)
--- NOTE | 2017-07-04 00:09 | NUR ---
MS RN NOTES PAIN MANAGEMENT C/O PAIN VIA RIGHT FOOT 7/1O ON PAIN SCALE,MEDICATED WITH NORCO 10/325MG,1 TAB PO PER PATIENT REQUEST.
[2017-07-04] MEDS: ZOLPIDEM TARTRATE 5 MG TABLET PO PRN ×2 (00:19→23:03)
--- NOTE | 2017-07-04 00:19 | NUR ---
MS RN NOTES C/O INSOMNIA,AMBIEN 5MG PO GIVEN .
[2017-07-04] MEDS: BLOOD SUGAR DIAGNOSTIC 1 EACH STRIP VI SCH ×4 (05:41→20:44)
--- NOTE | 2017-07-04 05:58 | NUR ---
MS RN NOTES ACCU-CHECK BLOOD SUGAR CHECK 101.NO INSULIN COVERAGE.
[2017-07-04] MEDS: MORPHINE SULFATE INJ 4 MG/ML DISP.SYRIN IV PRN ×4 (06:49→23:03)
--- NOTE | 2017-07-04 06:49 | NUR ---
MS RN NOTES PAIN MANAGEMENT C/O PAIN VIA RIGHT FOOT /10 ON PAIN SCALE,MEDICATED WITH MORPHINE 4MG IVP ORDERED
--- NOTE | 2017-07-04 06:59 | NUR ---
MS RN NOTES SLEPT WITH INTERVALS.PATIENT SEEMS UPSET,NOT HAPPY OF SERVICE OFFERED LIKE OFFERING ICE WATER.FOR D/C PL;AN TO HOME WITH HOME HEALTH.WILL ENDORSE TO DAY NURSE FOR LUIS
[2017-07-04] MEDS: PANTOPRAZOLE 40 MG TABLET.DR PO SCH (07:30)
--- NOTE | 2017-07-04 07:32 | NUR ---
RN OPEN NOTES RECEIVED REPORT FROM RESIDENTIAL CARE FACILITY MANAGER NURSE. WILL CONTINUE TO MONITOR AND ASSESS PATIENT THROUGH OUT MY SHIFT
[2017-07-04 07:39] LABS: BASOPHILS % (AUTO) 0.4 % (0.0-2.0); EOSINOPHILS # (AUTO) 0.6 /CMM (0.0-0.7); EOSINOPHILS % (AUTO) 5.6 % (0.0-6.0); HEMATOCRIT 31 % (39-51); HEMOGLOBIN 9.8 g/dL (13.5-17.5); LYMPHOCYTES # (AUTO) 1.9 /CMM (0.8-4.8); LYMPHOCYTES % (AUTO) 18.1 % (20.0-44.0); MEAN CORPUSCULAR HEMOGLOBIN 25 PG (26.0-33.0); MEAN CORPUSCULAR HGB CONC 32 g/dl (31.0-36.0); MEAN CORPUSCULAR VOLUME 80 fL (80-96); MONOCYTES # (AUTO) 0.8 /CMM (0.1-1.30); MONOCYTES % (AUTO) 7.6 % (2.0-12.0); NEUTROPHILS # (AUTO) 7.1 /CMM (1.8-8.9); NEUTROPHILS % (AUTO) 68.3 % (43.0-81.0); PLATELET COUNT (AUTO) 662 /CMM (150-450); RDW COEFFICIENT OF VARIATION 18.6 (11.5-15.0); RED BLOOD CELL COUNT(AUTO) 3.86 MIL/uL (4.5-6.0); WHITE BLOOD COUNT (AUTO) 10.4 K/uL (4.3-11.0)
[2017-07-04 08:00] VITALS: BP 158/111
[2017-07-04 08:06] LABS: CALCIUM, SERUM 8.8 mg/dL (8.5-10.1); CREATININE 1.1 mg/dL (0.6-1.3); MAGNESIUM 1.9 mg/dL (1.8-2.4); PHOSPHORUS 4.3 mg/dL (2.5-4.9); POTASSIUM 3.8 mmol/L (3.5-5.1)
[2017-07-04] MEDS: GABAPENTIN 300 MG CAPSULE PO SCH ×3 (08:11→18:53)
[2017-07-04] MEDS: ASCORBIC ACID 500 MG TABLET PO SCH (08:12)
[2017-07-04] MEDS: ACIDOPHILUS/BULGARICUS 1 EACH TAB.CHEW PO SCH ×3 (08:12→18:53)
[2017-07-04] MEDS: ZINC SULFATE 220 MG CAPSULE PO SCH (08:12)
[2017-07-04] MEDS: LACTOBACILLUS RHAMNOSUS GG 1 EACH CAP.SPRINK PO SCH ×2 (08:12→18:53)
[2017-07-04] MEDS: NEOMY SULF/BACITRAC ZN/POLY 15 GM TUBE TP SCH ×2 (08:13→18:54)
[2017-07-04] MEDS: HYDROGEL DRESSING 90 GM TUBE TP SCH (08:13)
[2017-07-04] MEDS: IV NS 0.9% 1,000 ML IV PRN (08:15)
[2017-07-04] MEDS: INSULIN DETEMIR 100 UNIT/ML CARTRIDGE SQ SCH ×2 (08:31→20:50)
--- NOTE | 2017-07-04 12:15 | NUR ---
MIDLINE NURSE AT BEDSIDE
--- NOTE | 2017-07-04 14:10 | NUR ---
DR MCKEON AT BEDSIDE
--- NOTE | 2017-07-04 15:30 | NUR ---
PATIENT IS TALKING WITH HIS GIRLFRIEND. ASKED NOT TO BE BOTHERED
--- NOTE | 2017-07-04 16:30 | NUR ---
HOURLY ROUND ON PATIENT. PATIENT IS IN BED, WITH HIS EYES CLOSED. CHEST IS RISING EVENLY.
--- NOTE | 2017-07-04 17:05 | NUR ---
PATIENT IS IN BED, WITH HIS EYES CLOSED. CHEST IS RISING EVENLY. PATIENT ASKED NOT TO BE BOTHERED. 1700 MEDICATION WILL BE ADMINISTERED WHEN PATIENT IS AWAKE. CHARGE NURSE MADE AWARE
--- NOTE | 2017-07-04 17:24 | NUR ---
CHECKED ON PATIENT AGAIN, PATIENT IS IN BED, WITH HIS EYES CLOSED. CHEST IS RISING EVENLY.
--- NOTE | 2017-07-04 17:49 | NUR ---
CHECKED ON PATIENT AGAIN, PATIENT IS IN BED, WITH HIS EYES CLOSED. CHEST IS RISING EVENLY.
--- NOTE | 2017-07-04 18:50 | NUR ---
PATIENT WOKE UP AND DEMAND HIS DINNER
--- NOTE | 2017-07-04 19:02 | NUR ---
PATIENT WAS NOT HAPPY WITH HIS MEALS. SPOKE WITH DR MCKEON. CHANGED DIET TO REGULAR DIET
--- NOTE | 2017-07-04 19:45 | NUR ---
MS RN OPENING NOTES: PATIENT IN BED, AOX4, ON ROOM AIR, BREATHING EVEN AND UNLABORED. PATIENT APPEARS ANGRY, INITIALLY DOES NOT WANT TO BE SEEN BY INCOMING RN NOT UNTIL HE IS FINISHED SPEAKING WITH OUTGOING AM RN. PATIENT HAS SOME COMPLAINTS ABOUT HIS FOOD AND STAFF. EXPLAINED TO PATIENT THAT ASSESSMENT IS TO BE DONE AND THAT HIS BP IS ELEVATED, SO HYDRALAZINE PRN WILL HAVE TO BE GIVEN. PATIENT AGREED TO HAVE ASSESSMENT DONE. PT HAS A MAXWELL MIDLINE INTACT AND PATENT TO FLUSH. R FOOT WITH CLEAN AND INTACT DRESSING, CONNECTED TO WOUND VAC, WITH SEROSANGUINEOUS DRAINAGE NOTED ON COLLECTION CHAMBER. PATIENT COMPLAINS OF 8/10 PAIN OVER HIS R FOOT, EXPLAINED SCHEDULED OF PAIN MEDS WITH HIM. PROVIDED FOR COMFORT AND SAFETY. WILL CONT TO MONITOR.
--- NOTE | 2017-07-04 19:45 | NUR ---
M/S RN CLOSING NOTES PATIENT IS IN BED. ALERT AND ORIENTED TO NAME, PLACE AND TIME. BREATHING EVEN AND UNLABORED. NO SIGNS AND SYMPTOMS OF SHORTNESS OF BREATH OR DISTRESS NOTED. DENIES PAIN. NEW MIDLINE INSERTED TODAY. MIDLINE IS INTACT AND PATENT. BED IN LOW AND IN LOCKED POSITION WITH CALL LIGHT IN REACH. TWO SIDE RAILS ARE UP. PATIENT KEPT DRY AND CLEAN. WILL ENDORSED TO PACKAGING SALES CONSULTANT NURSE TO [facility].
[2017-07-04 20:00] VITALS: BP 180/105
[2017-07-04] MEDS: CEFTRIAXONE 1 G in IV D5W 50 ML IV SCH (20:18)
[2017-07-04] MEDS: hydrALAZINE HCL 50 MG TABLET PO PRN (20:20)
[2017-07-04] MEDS: LEVOFLOXACIN (500MG) 500 MG TABLET PO SCH (20:24)
--- NOTE | 2017-07-04 20:45 | NUR ---
RN NOTES: PATIENT WANTS BLOOD SUGAR TO BE DONE NOW, INSTEAD OF AT 2200 PM. BLOOD SUGAR CHECKED AT 180 MG/DL, ADMINISTERED SCHEDULED 18 UNITS LEVEMIR SQ AND 3 UNITS REGULAR INSULIN PER HS ISS.
[2017-07-04] MEDS: *INSULIN REGULAR(HUMULIN R)HUM 100 UNIT/ML VIAL SQ PRN (20:51)
--- NOTE | 2017-07-04 21:53 | NUR ---
RN NOTES: PATIENT APPEARS VERY ANGRY WHEN NURSE KNOCKED ON DOOR, SUPPOSEDLY TO LET HIM KNOW THAT THE EARLIER PLANNED BEDBATH AT 10 PM MIGHT BE POSTPONED BECAUSE [facility] IS EXPECTING AN ADMISSION. HOWEVER, BEFORE RN COULD SPEAK, HE SAID, " IT'S NOT EVEN 10 YET, WHAT'S THE DEAL? THAT MEANS GET OUT!" .
--- NOTE | 2017-07-04 22:20 | NUR ---
RN NOTES: DR MUIR CAME AND CHANGED DRESSING ON PATIENT'S R FOOT.
[2017-07-04 22:34] VITALS: BP 145/97
[2017-07-04 23:00] VITALS: BP 145/74
--- NOTE | 2017-07-04 23:10 | NUR ---
RN NOTES: PATIENT COMPLAINED OF 8/10 PAIN OVER R FOOT, AND WAS ASKING FOR PAIN MEDICATION AND A SLEEPING MEDICATION, AND WANTS THEM BOTH AT THE SAME TIME. EXPLAINED TO PATIENT THAT IT IS BEST TO GIVE THE AMBIEN IN 30 MINS TO AN HOUR, BUT PATIENT STILL WANTS THEM BOTH AT NOW, AND DOES NOT WANT TO BE BOTHERED AGAIN LATER.
[2017-07-05] MEDS: MORPHINE SULFATE INJ 4 MG/ML DISP.SYRIN IV PRN ×4 (03:59→16:00)
--- NOTE | 2017-07-05 04:00 | NUR ---
RN NOTES: PATIENT COMPLAINED OF 9/10 PAIN OVER R FOOT AND WAS ASKING FOR PAIN MEDICATION. ADMINISTERED MORPHINE 4 MG IV PRN. WILL CONT TO MONITOR.
--- NOTE | 2017-07-05 06:32 | NUR ---
RN NOTES: PATIENT REFUSED TO HAVE BLOOD SUGAR CHECKED AT THIS TIME, SAYING THAT HE WANTS IT DONE BEFORE BREAKFAST. WHEN ASKED WHAT TIME SPECIFICALLY, HE SAID "QUARTER TO EIGHT."
--- NOTE | 2017-07-05 06:33 | NUR ---
MS RN CLOSING NOTES: PATIENT IN BED, AOX4, ON ROOM AIR, BREATHING EVEN AND UNLABORED. MAXWELL MIDLINE INTACT AND PATENT TO FLUSH. R FOOT WITH CLEAN AND INTACT DRESSING, CONNECTED TO WOUND VAC DRAINING SEROSANGUINEOUS DRAINAGE AT COLLECTION CHAMBER. PATIENT STILL COMPLAINING OF PAIN OVER R FOOT. DUE MEDS GIVEN. PROVIDED FOR COMFORT AND SAFETY. NO ACUTE CHANGE IN CONDITION NOTED THROUGH SHIFT. WILL ENDORSE TO AM RN FOR LUIS.
--- NOTE | 2017-07-05 07:35 | NUR ---
MS RN RECEIVED ON BED, AWAKE,ALERT, ORIENTED X4,NOT IN DISTRESS, RESPIRATIONS EVEN AND UNLABORED,NO SOB NOTED, RIGHT FOOT CELLULITIS NOTED W/ WOUND VAC INTACT AND GOING, COMPLAINING OF SERVICE, SHOUTING, TOLD PATIENT, SHOUTING TO NURSES IS A BIG NO NO, COMPROMISED PATIENT TO GIVE MEDS AT RIGHT TIME AND HE AGREED AND CALM DOWN.WILL MONITOR PATIENT.
[2017-07-05 08:00] VITALS: BP 154/96
[2017-07-05] MEDS ORDERED: FUROSEMIDE 20 MG/2 ML VIAL IV ONE (08:00)
[2017-07-05] MEDS: ZINC SULFATE 220 MG CAPSULE PO SCH (08:28)
[2017-07-05] MEDS: ASCORBIC ACID 500 MG TABLET PO SCH (08:28)
[2017-07-05] MEDS: GABAPENTIN 300 MG CAPSULE PO SCH ×3 (08:28→15:59)
[2017-07-05] MEDS: ACIDOPHILUS/BULGARICUS 1 EACH TAB.CHEW PO SCH ×3 (08:28→15:59)
[2017-07-05] MEDS: LACTOBACILLUS RHAMNOSUS GG 1 EACH CAP.SPRINK PO SCH ×2 (08:28→15:59)
[2017-07-05] MEDS: LEVOFLOXACIN (500MG) 500 MG TABLET PO SCH (08:28)
[2017-07-05] MEDS: BLOOD SUGAR DIAGNOSTIC 1 EACH STRIP VI SCH ×3 (08:29→17:27)
--- NOTE | 2017-07-05 08:30 | NUR ---
MS HOLT BREAKFAST SERVED,DUE MEDS GIVEN,TOLERATED WELL.
[2017-07-05] MEDS: INSULIN REGULAR, HUMAN 100 UNIT/ML 3 ML VIAL SQ PRN (08:34)
[2017-07-05] MEDS: INSULIN DETEMIR 100 UNIT/ML CARTRIDGE SQ SCH (08:36)
[2017-07-05] MEDS: PANTOPRAZOLE 40 MG TABLET.DR PO SCH (08:43)
[2017-07-05] MEDS: NEOMY SULF/BACITRAC ZN/POLY 15 GM TUBE TP SCH ×2 (11:54→16:50)
--- NOTE | 2017-07-05 12:00 | NUR ---
MS HOLT BS - 95 - NO COVERAGE GIVEN.
--- NOTE | 2017-07-05 13:00 | NUR ---
MS RN WAS SEEN BY ISHMAEL Willett/ DEBORAH TO GO HOME TODAY.
[2017-07-05] MEDS ORDERED: PANT40TA2 PO (14:32)
[2017-07-05] MEDS ORDERED: ASCO500T9 PO (14:32)
[2017-07-05] MEDS ORDERED: ZOLP5TAB2 PO (14:32)
[2017-07-05] MEDS ORDERED: HYDR-548 PO (14:32)
[2017-07-05] MEDS ORDERED: BLOO-296 MC (14:32)
[2017-07-05] MEDS ORDERED: LISI-603 PO (14:32)
[2017-07-05] MEDS ORDERED: INSU100V7 SQ (14:32)
[2017-07-05] MEDS ORDERED: GABA600T2 PO (14:32)
[2017-07-05] MEDS ORDERED: ACID1TAB12 PO (14:32)
[2017-07-05] MEDS ORDERED: LEVO500T15 PO (14:32)
[2017-07-05 16:00] VITALS: BP 190/117
[2017-07-05] MEDS: HYDROGEL DRESSING 90 GM TUBE TP SCH (16:03)
--- NOTE | 2017-07-05 16:30 | NUR ---
MS RN PATIENT READY TO GO HOME, W/ HOME [facility] IV ATB AND WOUND VAC, GOING W/ MIDLINE, NO S/S OF INFECTION, DRESSING CHANGED AND REFUSED TO REMOVE WOUND VAC TUBE, EXPLAIN THAT HOME HEALTH WILL RESTART IT BUT STILL INSIST TO HAVE IT,TUBE COVERED W/ GAUZED AT THE TIP END.
[2017-07-05 16:48] VITALS: BP 190/117
[2017-07-05] MEDS: hydrALAZINE HCL 50 MG TABLET PO PRN (16:48)
--- NOTE | 2017-07-05 17:30 | NUR ---
MS JONATHON BS - 113 - NO COVERAGE GIVE.
--- NOTE | 2017-07-05 18:30 | NUR ---
MS RN PATIENT WENT HOME, DISCHARGE INSTRUCTIONS GIVEN AND UNDERSTOOD, STILL REFUSED TO TAKE OFF WOUND VAC TUBE.WENT HOME VIA TAXI.
== END 2017-07-05 18:40 | disposition home or self-care (01) | DRG 982 ==
LOC: ER 01:03 → MED 01:55
PROVIDERS: ADMIT Nurse Practitioner Acute Care; ATTEND Internal Medicine
PROC: 30233N1 Transfusion of Nonautologous Red Blood Cells into Peripheral Vein, Percutaneous Approach (ICD-10-PCS; 2017-06-28)
PROC: 0KBV0ZZ Excision of Right Foot Muscle, Open Approach (ICD-10-PCS; principal; 2017-06-29)
PROC: 30233K1 Transfusion of Nonautologous Frozen Plasma into Peripheral Vein, Percutaneous Approach (ICD-10-PCS; 2017-07-04)
PROC: 05H633Z Insertion of Infusion Device into Left Subclavian Vein, Percutaneous Approach (ICD-10-PCS; 2017-07-04)
DX: E11.69 Type 2 diabetes mellitus with other specified complication (principal); L03.115 Cellulitis of right lower limb; M86.171 Other acute osteomyelitis, right ankle and foot; N17.0 Acute kidney failure with tubular necrosis; E11.621 Type 2 diabetes mellitus with foot ulcer; E83.42 Hypomagnesemia; E11.42 Type 2 diabetes mellitus with diabetic polyneuropathy; M86.9 Osteomyelitis, unspecified; Z79.4 Long term (current) use of insulin; Z98.84 Bariatric surgery status; Z79.899 Other long term (current) drug therapy; L97.519 Non-pressure chronic ulcer of other part of right foot with unspecified severity; I10 Essential (primary) hypertension; F32.9 Major depressive disorder, single episode, unspecified; K59.00 Constipation, unspecified; G89.4 Chronic pain syndrome; E11.65 Type 2 diabetes mellitus with hyperglycemia; D75.89 Other specified diseases of blood and blood-forming organs; D50.9 Iron deficiency anemia, unspecified; B96.4 Proteus (mirabilis) (morganii) as the cause of diseases classified elsewhere
CPT/HCPCS: 36415; 71010-TC; 73610-TC; 73630-TC; 80048-TC; 80061-TC; 80076-TC; 82272-TC; 82728-TC; 82962-TC; 83605-TC; 83735-TC; 84100-TC; 85025-TC; 85045-TC; 85730-TC; 86850-TC; 86921-TC; 87040-TC; 87070-TC; 87081-TC; 87186-TC; 93971-TC; A4216; A4606; A6248; A6402; A6403; J0696; J1650; J1815; J1940; J1956; J2270; J2405; J2543; J3370; J3475; J7030; J7050; J7060; P9016-BL; P9017-BL; Z7610

== ENCOUNTER 2017-07-06 08:45 | Outpatient (CLI) | payer MEDICARE, OTHER ==
[~2017-07-06 08:45] MED LIST changes: -ACET-868 PO; +ACID1TAB12 PO; -AMIN30LI27 PO; -AMLO10TA2 PO; -ASCO-340 PO; +ASCO500T9 PO; -BISA10SU8 RC; +BLOO-296 MC; -BUPR-96 PO; -CEFT1VIA6 IV; -CRAN425C PO; -DOCU250C75 PO; +GABA600T2 PO; -HYDR-3326 GT; -INSU100I4 SQ; +LEVO500T15 PO; -MAGN400O6 PO; -MULT-213 PO; -NA P133E RC; -ONDA4TAB5 PO; +PANT40TA2 PO; -VANC1PLA10 IV; -VITA200C22 PO; -VORI200T4 PO; -ZINC220T PO; +ZOLP5TAB2 PO
== END 2017-07-06 23:59 | disposition home health service (06) ==
LOC: WOU 08:45
PROVIDERS: ATTEND Podiatrist Foot & Ankle Surgery
DX: E11.610 Type 2 diabetes mellitus with diabetic neuropathic arthropathy (principal); E11.621 Type 2 diabetes mellitus with foot ulcer; L97.514 Non-pressure chronic ulcer of other part of right foot with necrosis of bone; E11.622 Type 2 diabetes mellitus with other skin ulcer; L97.313 Non-pressure chronic ulcer of right ankle with necrosis of muscle; E11.69 Type 2 diabetes mellitus with other specified complication; M86.671 Other chronic osteomyelitis, right ankle and foot; B96.89 Other specified bacterial agents as the cause of diseases classified elsewhere; B37.89 Other sites of candidiasis; L03.115 Cellulitis of right lower limb; R93.7 Abnormal findings on diagnostic imaging of other parts of musculoskeletal system; M84.474A Pathological fracture, right foot, initial encounter for fracture; Z91.19 Patient's noncompliance with other medical treatment and regimen; Z79.899 Other long term (current) drug therapy
CPT/HCPCS: 11043; 11044; 11047; 97605-TC; A6402

== ENCOUNTER 2017-07-09 08:35 | Outpatient (CLI) | payer MEDICARE, OTHER | END 2017-07-09 23:59 | disposition home health service (06) | LOC: WOU 08:35 | PROVIDERS: ATTEND Podiatrist Foot & Ankle Surgery | DX: E11.610 Type 2 diabetes mellitus with diabetic neuropathic arthropathy (principal); E11.621 Type 2 diabetes mellitus with foot ulcer; L97.514 Non-pressure chronic ulcer of other part of right foot with necrosis of bone; E11.622 Type 2 diabetes mellitus with other skin ulcer; L97.313 Non-pressure chronic ulcer of right ankle with necrosis of muscle; E11.69 Type 2 diabetes mellitus with other specified complication; M86.671 Other chronic osteomyelitis, right ankle and foot; B96.89 Other specified bacterial agents as the cause of diseases classified elsewhere; B37.89 Other sites of candidiasis; L03.115 Cellulitis of right lower limb; Z91.19 Patient's noncompliance with other medical treatment and regimen; Z79.899 Other long term (current) drug therapy | CPT/HCPCS: 11043; 11044; 11047; A6402 ==

== ENCOUNTER 2017-07-16 09:03 | Outpatient (CLI) | payer MEDICARE, OTHER | END 2017-07-16 23:59 | disposition home health service (06) | LOC: WOU 09:03 | PROVIDERS: ATTEND Podiatrist Foot & Ankle Surgery | DX: E11.621 Type 2 diabetes mellitus with foot ulcer (principal); L97.414 Non-pressure chronic ulcer of right heel and midfoot with necrosis of bone; S93.31 Subluxation and dislocation of tarsal joint; M21.172 Varus deformity, not elsewhere classified, left ankle; E11.42 Type 2 diabetes mellitus with diabetic polyneuropathy; E11.69 Type 2 diabetes mellitus with other specified complication; M86.671 Other chronic osteomyelitis, right ankle and foot | CPT/HCPCS: 11044; 97605-TC; A6402; J7040 ==

== ENCOUNTER 2017-07-23 09:48 | Outpatient (CLI) | payer MEDICARE, OTHER | END 2017-07-23 23:59 | disposition home health service (06) | LOC: WOU 09:48 | PROVIDERS: ATTEND Podiatrist Foot & Ankle Surgery | DX: E11.621 Type 2 diabetes mellitus with foot ulcer (principal); L97.414 Non-pressure chronic ulcer of right heel and midfoot with necrosis of bone; S93.31 Subluxation and dislocation of tarsal joint; M21.172 Varus deformity, not elsewhere classified, left ankle; E11.42 Type 2 diabetes mellitus with diabetic polyneuropathy; E11.69 Type 2 diabetes mellitus with other specified complication; M86.671 Other chronic osteomyelitis, right ankle and foot; E11.65 Type 2 diabetes mellitus with hyperglycemia; Z91.19 Patient's noncompliance with other medical treatment and regimen; E11.622 Type 2 diabetes mellitus with other skin ulcer; L97.313 Non-pressure chronic ulcer of right ankle with necrosis of muscle | CPT/HCPCS: 11043; 11044; 11047; 97605; A6402; J7040 ==

== ENCOUNTER 2017-07-30 13:05 | Outpatient (CLI) | payer MEDICARE, OTHER | END 2017-07-30 23:59 | disposition home health service (06) | LOC: WOU 13:05 | PROVIDERS: ATTEND Podiatrist Foot & Ankle Surgery | DX: E11.621 Type 2 diabetes mellitus with foot ulcer (principal); L97.414 Non-pressure chronic ulcer of right heel and midfoot with necrosis of bone; L97.313 Non-pressure chronic ulcer of right ankle with necrosis of muscle; E11.42 Type 2 diabetes mellitus with diabetic polyneuropathy; E11.69 Type 2 diabetes mellitus with other specified complication; M86.671 Other chronic osteomyelitis, right ankle and foot; Z91.19 Patient's noncompliance with other medical treatment and regimen; E11.622 Type 2 diabetes mellitus with other skin ulcer; E11.65 Type 2 diabetes mellitus with hyperglycemia; M21.171 Varus deformity, not elsewhere classified, right ankle | CPT/HCPCS: 11043; 11044; 11047; 97605-TC; A6402 ==

== ENCOUNTER 2017-08-06 11:51 | Outpatient (CLI) | payer MEDICARE, OTHER | END 2017-08-06 23:59 | disposition home or self-care (01) | LOC: WOU 11:51 | PROVIDERS: ATTEND Podiatrist Foot & Ankle Surgery | DX: E11.621 Type 2 diabetes mellitus with foot ulcer (principal); L97.513 Non-pressure chronic ulcer of other part of right foot with necrosis of muscle; E11.69 Type 2 diabetes mellitus with other specified complication; M86.671 Other chronic osteomyelitis, right ankle and foot; E11.42 Type 2 diabetes mellitus with diabetic polyneuropathy; Z91.19 Patient's noncompliance with other medical treatment and regimen; E11.622 Type 2 diabetes mellitus with other skin ulcer; L97.311 Non-pressure chronic ulcer of right ankle limited to breakdown of skin; M21.541 Acquired clubfoot, right foot; M89.771 Major osseous defect, right ankle and foot; E11.65 Type 2 diabetes mellitus with hyperglycemia | CPT/HCPCS: 11042; 11043; 97605-TC; A6402 ==

== ENCOUNTER 2017-08-10 09:04 | Outpatient (CLI) | payer MEDICARE, OTHER | END 2017-08-10 23:59 | disposition home or self-care (01) | LOC: WOU 09:04 | PROVIDERS: ATTEND Podiatrist Foot & Ankle Surgery | DX: E11.621 Type 2 diabetes mellitus with foot ulcer (principal); L97.413 Non-pressure chronic ulcer of right heel and midfoot with necrosis of muscle; E11.622 Type 2 diabetes mellitus with other skin ulcer; E11.69 Type 2 diabetes mellitus with other specified complication; E11.610 Type 2 diabetes mellitus with diabetic neuropathic arthropathy; M86.671 Other chronic osteomyelitis, right ankle and foot; B96.89 Other specified bacterial agents as the cause of diseases classified elsewhere; R60.0 Localized edema; E11.65 Type 2 diabetes mellitus with hyperglycemia; S93.31 Subluxation and dislocation of tarsal joint; M21.541 Acquired clubfoot, right foot; Z91.19 Patient's noncompliance with other medical treatment and regimen; L97.313 Non-pressure chronic ulcer of right ankle with necrosis of muscle | CPT/HCPCS: 11043; 11046; 97605; A6402 ×2; J7040 ==

== ENCOUNTER 2017-08-12 13:44 | Outpatient (CLI) | payer MEDICARE, OTHER ==
[2017-08-12 14:29] LABS: BASOPHILS % (AUTO) 0.2 % (0.0-2.0); EOSINOPHILS # (AUTO) 0.7 /CMM (0.0-0.7); EOSINOPHILS % (AUTO) 8.5 % (0.0-6.0); HEMATOCRIT 31 % (39-51); HEMOGLOBIN 9.9 g/dL (13.5-17.5); LYMPHOCYTES # (AUTO) 1.3 /CMM (0.8-4.8); LYMPHOCYTES % (AUTO) 15.4 % (20.0-44.0); MEAN CORPUSCULAR HEMOGLOBIN 26 PG (26.0-33.0); MEAN CORPUSCULAR HGB CONC 32 g/dl (31.0-36.0); MEAN CORPUSCULAR VOLUME 81 fL (80-96); MONOCYTES # (AUTO) 0.5 /CMM (0.1-1.30); MONOCYTES % (AUTO) 6.3 % (2.0-12.0); NEUTROPHILS # (AUTO) 5.7 /CMM (1.8-8.9); NEUTROPHILS % (AUTO) 69.6 % (43.0-81.0); PLATELET COUNT (AUTO) 486 /CMM (150-450); RED BLOOD CELL COUNT(AUTO) 3.79 MIL/uL (4.5-6.0); WHITE BLOOD COUNT (AUTO) 8.2 K/uL (4.3-11.0)
[2017-08-12 14:34] LABS: ALBUMIN 3.2 g/dL (3.4-5.0); BILIRUBIN,TOTAL 0.1 mg/dL (0.2-1.0); CALCIUM, SERUM 8.5 mg/dL (8.5-10.1); CREATININE 1.4 mg/dL (0.6-1.3); POTASSIUM 5.6 mmol/L (3.5-5.1); TOTAL PROTEIN, SERUM 7.8 g/dL (6.4-8.2)
[2017-08-12 14:39] LABS: INR 0.91 (0.87-1.13); PROTHROMBIN TIME 9.5 SECS (9.5-12.7)
[2017-08-12 14:48] LABS: BILIRUBIN,DIRECT 0.1 mg/dL (0.0-0.2)
== END 2017-08-12 23:59 | disposition home or self-care (01) ==
LOC: LAB 13:44
PROVIDERS: ATTEND Podiatrist Foot & Ankle Surgery
DX: Z01.818 Encounter for other preprocedural examination (principal); M19.071 Primary osteoarthritis, right ankle and foot; M86.8X7 Other osteomyelitis, ankle and foot; M21.541 Acquired clubfoot, right foot
CPT/HCPCS: 36415; 71010-TC; 73600-TC; 73620-TC; 73650-TC; 80048-TC; 80076-TC; 85025-TC; 85652-TC; 85730-TC

== ENCOUNTER 2017-08-17 09:59 | Outpatient (CLI) | payer MEDICARE, OTHER | END 2017-08-17 23:59 | disposition home or self-care (01) | LOC: WOU 09:59 | PROVIDERS: ATTEND Podiatrist Foot & Ankle Surgery | DX: E11.621 Type 2 diabetes mellitus with foot ulcer (principal); L97.413 Non-pressure chronic ulcer of right heel and midfoot with necrosis of muscle; E11.622 Type 2 diabetes mellitus with other skin ulcer; E11.610 Type 2 diabetes mellitus with diabetic neuropathic arthropathy; E11.69 Type 2 diabetes mellitus with other specified complication; M86.671 Other chronic osteomyelitis, right ankle and foot; B96.89 Other specified bacterial agents as the cause of diseases classified elsewhere; E11.65 Type 2 diabetes mellitus with hyperglycemia; S93.31 Subluxation and dislocation of tarsal joint; M21.541 Acquired clubfoot, right foot; Z91.19 Patient's noncompliance with other medical treatment and regimen; L97.313 Non-pressure chronic ulcer of right ankle with necrosis of muscle; R60.0 Localized edema | CPT/HCPCS: 11043; 11046; 97605; A6402 ==

== ENCOUNTER 2017-08-25 08:30 | Outpatient (CLI) | payer MEDICARE, OTHER | END 2017-08-25 23:59 | disposition home or self-care (01) | LOC: WOU 08:30 | PROVIDERS: ATTEND Podiatrist Foot & Ankle Surgery | DX: E11.621 Type 2 diabetes mellitus with foot ulcer (principal); L97.516 Non-pressure chronic ulcer of other part of right foot with bone involvement without evidence of necrosis; L97.313 Non-pressure chronic ulcer of right ankle with necrosis of muscle; E11.622 Type 2 diabetes mellitus with other skin ulcer; M21.541 Acquired clubfoot, right foot; L60.8 Other nail disorders; R60.0 Localized edema; E11.65 Type 2 diabetes mellitus with hyperglycemia; Z91.19 Patient's noncompliance with other medical treatment and regimen | CPT/HCPCS: 11043; 11046; 97605; A6402 ==

== ENCOUNTER 2017-08-31 09:33 | Outpatient (CLI) | payer MEDICARE, OTHER | END 2017-08-31 23:59 | disposition home or self-care (01) | LOC: WOU 09:33 | PROVIDERS: ATTEND Podiatrist Foot & Ankle Surgery | DX: E11.621 Type 2 diabetes mellitus with foot ulcer (principal); L97.513 Non-pressure chronic ulcer of other part of right foot with necrosis of muscle; L97.313 Non-pressure chronic ulcer of right ankle with necrosis of muscle; E11.622 Type 2 diabetes mellitus with other skin ulcer; E11.42 Type 2 diabetes mellitus with diabetic polyneuropathy; D64.9 Anemia, unspecified; M21.541 Acquired clubfoot, right foot; Z98.84 Bariatric surgery status; E11.69 Type 2 diabetes mellitus with other specified complication; M86.671 Other chronic osteomyelitis, right ankle and foot; Z91.19 Patient's noncompliance with other medical treatment and regimen; Z79.899 Other long term (current) drug therapy | CPT/HCPCS: 11043; 11046; 97605; A6402 ==

== ENCOUNTER 2017-09-07 09:23 | Outpatient (CLI) | payer MEDICARE, OTHER | END 2017-09-07 23:59 | disposition home or self-care (01) | LOC: WOU 09:23 | PROVIDERS: ATTEND Podiatrist Foot & Ankle Surgery | DX: E11.621 Type 2 diabetes mellitus with foot ulcer (principal); L97.513 Non-pressure chronic ulcer of other part of right foot with necrosis of muscle; L97.315 Non-pressure chronic ulcer of right ankle with muscle involvement without evidence of necrosis; E11.65 Type 2 diabetes mellitus with hyperglycemia; Z91.19 Patient's noncompliance with other medical treatment and regimen; R94.31 Abnormal electrocardiogram [ECG] [EKG]; D64.9 Anemia, unspecified; M21.541 Acquired clubfoot, right foot; E11.40 Type 2 diabetes mellitus with diabetic neuropathy, unspecified; E11.69 Type 2 diabetes mellitus with other specified complication; M86.671 Other chronic osteomyelitis, right ankle and foot | CPT/HCPCS: 11042; 11043; 11046; A6253; A6402; J7040 ==

== ENCOUNTER 2017-09-14 08:30 | Outpatient (CLI) | payer MEDICARE, OTHER | END 2017-09-14 23:59 | disposition home or self-care (01) | LOC: WOU 08:30 | PROVIDERS: ATTEND Podiatrist Foot & Ankle Surgery | DX: E11.622 Type 2 diabetes mellitus with other skin ulcer (principal); L97.313 Non-pressure chronic ulcer of right ankle with necrosis of muscle; M21.541 Acquired clubfoot, right foot; B35.1 Tinea unguium; R60.0 Localized edema; Z91.19 Patient's noncompliance with other medical treatment and regimen; E11.69 Type 2 diabetes mellitus with other specified complication; E11.65 Type 2 diabetes mellitus with hyperglycemia; M86.671 Other chronic osteomyelitis, right ankle and foot; B96.89 Other specified bacterial agents as the cause of diseases classified elsewhere | CPT/HCPCS: 11043; 11046; 87070; A6253; A6402; 87186-TC ==

== ENCOUNTER 2017-09-22 08:38 | Outpatient (CLI) | payer MEDICARE, OTHER | END 2017-09-22 23:59 | disposition home or self-care (01) | LOC: WOU 08:38 | PROVIDERS: ATTEND Podiatrist Foot & Ankle Surgery | DX: E11.621 Type 2 diabetes mellitus with foot ulcer (principal); L97.515 Non-pressure chronic ulcer of other part of right foot with muscle involvement without evidence of necrosis; L97.315 Non-pressure chronic ulcer of right ankle with muscle involvement without evidence of necrosis; E11.622 Type 2 diabetes mellitus with other skin ulcer; M21.541 Acquired clubfoot, right foot; E11.65 Type 2 diabetes mellitus with hyperglycemia; E11.69 Type 2 diabetes mellitus with other specified complication; M86.671 Other chronic osteomyelitis, right ankle and foot; B96.89 Other specified bacterial agents as the cause of diseases classified elsewhere; Z91.19 Patient's noncompliance with other medical treatment and regimen; M89.771 Major osseous defect, right ankle and foot; D53.9 Nutritional anemia, unspecified | CPT/HCPCS: 11042; 11043; 11046; A6253; A6402 ×2 ==

== ENCOUNTER 2017-09-28 09:15 | Outpatient (CLI) | payer MEDICARE | END 2017-09-28 23:59 | disposition home or self-care (01) | LOC: WOU 09:15 | PROVIDERS: ATTEND Podiatrist Foot & Ankle Surgery | DX: E11.621 Type 2 diabetes mellitus with foot ulcer (principal); L97.513 Non-pressure chronic ulcer of other part of right foot with necrosis of muscle; E11.622 Type 2 diabetes mellitus with other skin ulcer; L97.315 Non-pressure chronic ulcer of right ankle with muscle involvement without evidence of necrosis; L03.115 Cellulitis of right lower limb; B96.5 Pseudomonas (aeruginosa) (mallei) (pseudomallei) as the cause of diseases classified elsewhere; B95.2 Enterococcus as the cause of diseases classified elsewhere; E11.65 Type 2 diabetes mellitus with hyperglycemia; Z91.19 Patient's noncompliance with other medical treatment and regimen; M21.541 Acquired clubfoot, right foot | CPT/HCPCS: 11043; A6253; A6402; J7040 ==

== ENCOUNTER 2017-10-05 13:10 | Outpatient (CLI) | payer MEDICARE | END 2017-10-05 23:59 | disposition home health service (06) | LOC: WOU 13:10 | PROVIDERS: ATTEND Podiatrist Foot & Ankle Surgery | DX: E11.65 Type 2 diabetes mellitus with hyperglycemia (principal); E11.621 Type 2 diabetes mellitus with foot ulcer; E11.622 Type 2 diabetes mellitus with other skin ulcer; L97.513 Non-pressure chronic ulcer of other part of right foot with necrosis of muscle; L97.315 Non-pressure chronic ulcer of right ankle with muscle involvement without evidence of necrosis; D53.9 Nutritional anemia, unspecified; M21.541 Acquired clubfoot, right foot; Z91.19 Patient's noncompliance with other medical treatment and regimen; E11.69 Type 2 diabetes mellitus with other specified complication; M86.671 Other chronic osteomyelitis, right ankle and foot; B96.89 Other specified bacterial agents as the cause of diseases classified elsewhere | CPT/HCPCS: 11043; A6402 ==

== ENCOUNTER 2017-10-13 09:00 | Outpatient (CLI) | payer MEDICARE | END 2017-10-13 23:59 | disposition home health service (06) | LOC: WOU 09:00 | PROVIDERS: ATTEND Podiatrist Foot & Ankle Surgery | DX: E11.621 Type 2 diabetes mellitus with foot ulcer (principal); L97.513 Non-pressure chronic ulcer of other part of right foot with necrosis of muscle; L97.319 Non-pressure chronic ulcer of right ankle with unspecified severity; E11.42 Type 2 diabetes mellitus with diabetic polyneuropathy; M21.541 Acquired clubfoot, right foot; R60.0 Localized edema; E11.65 Type 2 diabetes mellitus with hyperglycemia; Z91.19 Patient's noncompliance with other medical treatment and regimen | CPT/HCPCS: 11043; A6253; A6402; J7040 ==

== ENCOUNTER 2017-10-19 09:15 | Outpatient (CLI) | payer MEDICARE | END 2017-10-19 23:59 | disposition home health service (06) | LOC: WOU 09:15 | PROVIDERS: ATTEND Podiatrist Foot & Ankle Surgery | DX: E11.621 Type 2 diabetes mellitus with foot ulcer (principal); L97.815 Non-pressure chronic ulcer of other part of right lower leg with muscle involvement without evidence of necrosis; E11.42 Type 2 diabetes mellitus with diabetic polyneuropathy; M21.541 Acquired clubfoot, right foot; Z91.19 Patient's noncompliance with other medical treatment and regimen; E11.69 Type 2 diabetes mellitus with other specified complication; M86.671 Other chronic osteomyelitis, right ankle and foot | CPT/HCPCS: 11042; A6253; A6402 ×2 ==

== ENCOUNTER 2017-10-22 11:00 | Outpatient (CLI) | payer MEDICARE | END 2017-10-22 23:59 | disposition home health service (06) | LOC: WOU 11:00 | PROVIDERS: ATTEND Podiatrist Foot & Ankle Surgery | DX: E11.621 Type 2 diabetes mellitus with foot ulcer (principal); E11.622 Type 2 diabetes mellitus with other skin ulcer; L97.515 Non-pressure chronic ulcer of other part of right foot with muscle involvement without evidence of necrosis; L97.312 Non-pressure chronic ulcer of right ankle with fat layer exposed; M21.541 Acquired clubfoot, right foot; R60.0 Localized edema; E11.65 Type 2 diabetes mellitus with hyperglycemia; M79.671 Pain in right foot; R53.81 Other malaise; Z79.899 Other long term (current) drug therapy; Z91.19 Patient's noncompliance with other medical treatment and regimen; E11.69 Type 2 diabetes mellitus with other specified complication; M86.671 Other chronic osteomyelitis, right ankle and foot | CPT/HCPCS: 11042; A6253; A6402; J7040 ==

== ENCOUNTER 2017-11-05 10:00 | Outpatient (CLI) | payer MEDICARE ==
[~2017-11-05 10:00] MED LIST changes: -LEVO500T15 PO; +LEVO500T2 PO
== END 2017-11-05 23:59 | disposition home health service (06) ==
LOC: WOU 10:00
PROVIDERS: ATTEND Podiatrist Foot & Ankle Surgery
DX: E11.621 Type 2 diabetes mellitus with foot ulcer (principal); L97.515 Non-pressure chronic ulcer of other part of right foot with muscle involvement without evidence of necrosis; L97.312 Non-pressure chronic ulcer of right ankle with fat layer exposed; E11.622 Type 2 diabetes mellitus with other skin ulcer; E11.42 Type 2 diabetes mellitus with diabetic polyneuropathy; R60.0 Localized edema; M21.541 Acquired clubfoot, right foot; Z91.19 Patient's noncompliance with other medical treatment and regimen; E11.65 Type 2 diabetes mellitus with hyperglycemia
CPT/HCPCS: 11042; 11043; 11046; A6253; A6402

== ENCOUNTER 2017-11-12 10:35 | Outpatient (CLI) | payer MEDICARE | END 2017-11-12 23:59 | disposition home health service (06) | LOC: WOU 10:35 | PROVIDERS: ATTEND Podiatrist Foot & Ankle Surgery | DX: E11.621 Type 2 diabetes mellitus with foot ulcer (principal); L97.515 Non-pressure chronic ulcer of other part of right foot with muscle involvement without evidence of necrosis; L97.312 Non-pressure chronic ulcer of right ankle with fat layer exposed; E11.610 Type 2 diabetes mellitus with diabetic neuropathic arthropathy; E11.42 Type 2 diabetes mellitus with diabetic polyneuropathy | CPT/HCPCS: 11042; 11043; A6253; A6402 ==

== ENCOUNTER 2017-11-23 09:15 | Outpatient (CLI) | payer MEDICARE | END 2017-11-23 23:59 | disposition home health service (06) | LOC: WOU 09:15 | PROVIDERS: ATTEND Podiatrist Foot & Ankle Surgery | DX: E11.621 Type 2 diabetes mellitus with foot ulcer (principal); L97.515 Non-pressure chronic ulcer of other part of right foot with muscle involvement without evidence of necrosis; E11.610 Type 2 diabetes mellitus with diabetic neuropathic arthropathy; E11.42 Type 2 diabetes mellitus with diabetic polyneuropathy | CPT/HCPCS: 11043; A6253; A6402 ==

== ENCOUNTER 2017-12-07 10:40 | Outpatient (CLI) | payer MEDICARE | END 2017-12-07 23:59 | disposition home health service (06) | LOC: WOU 10:40 | PROVIDERS: ATTEND Podiatrist Foot & Ankle Surgery | DX: E11.621 Type 2 diabetes mellitus with foot ulcer (principal); L97.414 Non-pressure chronic ulcer of right heel and midfoot with necrosis of bone; E11.42 Type 2 diabetes mellitus with diabetic polyneuropathy; E11.610 Type 2 diabetes mellitus with diabetic neuropathic arthropathy; S93.31 Subluxation and dislocation of tarsal joint; X58.XXXS Exposure to other specified factors, sequela; E11.69 Type 2 diabetes mellitus with other specified complication; M86.671 Other chronic osteomyelitis, right ankle and foot; Z91.19 Patient's noncompliance with other medical treatment and regimen | CPT/HCPCS: 11043; A6253; A6402 ==

== ENCOUNTER 2017-12-14 11:00 | Outpatient (CLI) | payer MEDICARE | END 2017-12-14 23:59 | disposition home health service (06) | LOC: WOU 11:00 | PROVIDERS: ATTEND Podiatrist Foot & Ankle Surgery | DX: E11.621 Type 2 diabetes mellitus with foot ulcer (principal); L97.515 Non-pressure chronic ulcer of other part of right foot with muscle involvement without evidence of necrosis; E11.610 Type 2 diabetes mellitus with diabetic neuropathic arthropathy; E11.42 Type 2 diabetes mellitus with diabetic polyneuropathy; M21.541 Acquired clubfoot, right foot; B35.1 Tinea unguium | CPT/HCPCS: 11042; A6253; A6402 ==

== ENCOUNTER 2018-01-07 10:21 | Outpatient (CLI) | payer MEDICARE | END 2018-01-07 23:59 | disposition home health service (06) | LOC: WOU 10:21 | PROVIDERS: ATTEND Podiatrist Foot & Ankle Surgery | DX: E11.621 Type 2 diabetes mellitus with foot ulcer (principal); L97.512 Non-pressure chronic ulcer of other part of right foot with fat layer exposed; E11.610 Type 2 diabetes mellitus with diabetic neuropathic arthropathy; E11.42 Type 2 diabetes mellitus with diabetic polyneuropathy; Z98.84 Bariatric surgery status; M21.541 Acquired clubfoot, right foot | CPT/HCPCS: 11042; A6253; A6402 ×2 ==

== ENCOUNTER 2018-01-21 09:50 | Outpatient (CLI) | payer MEDICARE | END 2018-01-21 23:59 | disposition home health service (06) | LOC: WOU 09:50 | PROVIDERS: ATTEND Podiatrist Foot & Ankle Surgery | DX: E11.621 Type 2 diabetes mellitus with foot ulcer (principal); L97.312 Non-pressure chronic ulcer of right ankle with fat layer exposed; E11.622 Type 2 diabetes mellitus with other skin ulcer; L97.512 Non-pressure chronic ulcer of other part of right foot with fat layer exposed; E11.42 Type 2 diabetes mellitus with diabetic polyneuropathy; M21.541 Acquired clubfoot, right foot; S93.31 Subluxation and dislocation of tarsal joint; X58.XXXS Exposure to other specified factors, sequela; S90.01XA Contusion of right ankle, initial encounter; X58.XXXA Exposure to other specified factors, initial encounter; Y92.89 Other specified places as the place of occurrence of the external cause; E11.69 Type 2 diabetes mellitus with other specified complication; M86.671 Other chronic osteomyelitis, right ankle and foot | CPT/HCPCS: 10140; 87070; 87075; 87077; 87186 ×3; A6253; A6402 ×2; 11042 ==

== ENCOUNTER 2018-02-01 09:15 | Outpatient (CLI) | payer MEDICARE | END 2018-02-01 23:59 | disposition home health service (06) | LOC: WOU 09:15 | PROVIDERS: ATTEND Podiatrist Foot & Ankle Surgery | DX: E11.621 Type 2 diabetes mellitus with foot ulcer (principal); L97.512 Non-pressure chronic ulcer of other part of right foot with fat layer exposed; L97.312 Non-pressure chronic ulcer of right ankle with fat layer exposed; E11.622 Type 2 diabetes mellitus with other skin ulcer; M21.541 Acquired clubfoot, right foot; Z91.19 Patient's noncompliance with other medical treatment and regimen; E11.610 Type 2 diabetes mellitus with diabetic neuropathic arthropathy; L03.115 Cellulitis of right lower limb; B96.20 Unspecified Escherichia coli [E. coli] as the cause of diseases classified elsewhere; B96.89 Other specified bacterial agents as the cause of diseases classified elsewhere; B95.62 Methicillin resistant Staphylococcus aureus infection as the cause of diseases classified elsewhere | CPT/HCPCS: 11042; 87070-TC; 87075-TC; 87186-TC; A6253; A6402 ==

== ENCOUNTER 2018-02-08 09:27 | Outpatient (CLI) | payer MEDICARE | END 2018-02-08 23:59 | disposition home health service (06) | LOC: WOU 09:27 | PROVIDERS: ATTEND Podiatrist Foot & Ankle Surgery | DX: E11.621 Type 2 diabetes mellitus with foot ulcer (principal); L97.512 Non-pressure chronic ulcer of other part of right foot with fat layer exposed; L97.318 Non-pressure chronic ulcer of right ankle with other specified severity; E11.622 Type 2 diabetes mellitus with other skin ulcer; L03.115 Cellulitis of right lower limb; E11.42 Type 2 diabetes mellitus with diabetic polyneuropathy; E11.610 Type 2 diabetes mellitus with diabetic neuropathic arthropathy; Z91.19 Patient's noncompliance with other medical treatment and regimen; V29.9XXA Motorcycle rider (driver) (passenger) injured in unspecified traffic accident, initial encounter; Y92.89 Other specified places as the place of occurrence of the external cause; Y99.8 Other external cause status | CPT/HCPCS: 11042; A6253; A6402 ×2; A6407 ==

== ENCOUNTER 2018-02-11 11:01 | Outpatient (CLI) | payer MEDICARE | END 2018-02-11 23:59 | disposition home or self-care (01) | LOC: WOU 11:01 | PROVIDERS: ATTEND Podiatrist Foot & Ankle Surgery | DX: E11.621 Type 2 diabetes mellitus with foot ulcer (principal); L97.512 Non-pressure chronic ulcer of other part of right foot with fat layer exposed; L97.315 Non-pressure chronic ulcer of right ankle with muscle involvement without evidence of necrosis; E11.65 Type 2 diabetes mellitus with hyperglycemia; E11.42 Type 2 diabetes mellitus with diabetic polyneuropathy; M21.541 Acquired clubfoot, right foot; E13.610 Other specified diabetes mellitus with diabetic neuropathic arthropathy; L03.115 Cellulitis of right lower limb; B96.20 Unspecified Escherichia coli [E. coli] as the cause of diseases classified elsewhere; Z91.19 Patient's noncompliance with other medical treatment and regimen | CPT/HCPCS: 11042; 11043; 87070; 87075; 87077; 87186 ×3; A6253; A6402 ==

== ENCOUNTER 2018-02-15 15:00 | Outpatient (CLI) | payer MEDICARE | END 2018-02-15 23:59 | disposition home or self-care (01) | LOC: WOU 15:00 | PROVIDERS: ATTEND Podiatrist Foot & Ankle Surgery | DX: E11.621 Type 2 diabetes mellitus with foot ulcer (principal); L97.512 Non-pressure chronic ulcer of other part of right foot with fat layer exposed; L97.312 Non-pressure chronic ulcer of right ankle with fat layer exposed; E11.622 Type 2 diabetes mellitus with other skin ulcer; E11.42 Type 2 diabetes mellitus with diabetic polyneuropathy; L03.115 Cellulitis of right lower limb; E11.65 Type 2 diabetes mellitus with hyperglycemia; Z91.19 Patient's noncompliance with other medical treatment and regimen; Z98.84 Bariatric surgery status; Z86.14 Personal history of Methicillin resistant Staphylococcus aureus infection; R60.0 Localized edema | CPT/HCPCS: 11042; A6253; A6402; A6407 ==

== ENCOUNTER 2018-02-18 10:25 | Outpatient (CLI) | payer MEDICARE | END 2018-02-18 23:59 | disposition home health service (06) | LOC: WOU 10:25 | PROVIDERS: ATTEND Podiatrist Foot & Ankle Surgery | DX: E11.621 Type 2 diabetes mellitus with foot ulcer (principal); E11.622 Type 2 diabetes mellitus with other skin ulcer; L97.518 Non-pressure chronic ulcer of other part of right foot with other specified severity; L97.312 Non-pressure chronic ulcer of right ankle with fat layer exposed; E11.65 Type 2 diabetes mellitus with hyperglycemia; M21.541 Acquired clubfoot, right foot; Z91.19 Patient's noncompliance with other medical treatment and regimen; M21.171 Varus deformity, not elsewhere classified, right ankle; E11.42 Type 2 diabetes mellitus with diabetic polyneuropathy; L03.115 Cellulitis of right lower limb; B95.62 Methicillin resistant Staphylococcus aureus infection as the cause of diseases classified elsewhere; R26.9 Unspecified abnormalities of gait and mobility; E11.610 Type 2 diabetes mellitus with diabetic neuropathic arthropathy | CPT/HCPCS: 11042; A6253; A6402; A6407 ==

== ENCOUNTER 2018-02-22 13:00 | Outpatient (CLI) | payer MEDICARE | END 2018-02-22 23:59 | disposition home health service (06) | LOC: WOU 13:00 | PROVIDERS: ATTEND Podiatrist Foot & Ankle Surgery | DX: E11.621 Type 2 diabetes mellitus with foot ulcer (principal); L97.512 Non-pressure chronic ulcer of other part of right foot with fat layer exposed; L97.312 Non-pressure chronic ulcer of right ankle with fat layer exposed; E11.42 Type 2 diabetes mellitus with diabetic polyneuropathy; E11.65 Type 2 diabetes mellitus with hyperglycemia; E11.610 Type 2 diabetes mellitus with diabetic neuropathic arthropathy; S81.812D Laceration without foreign body, left lower leg, subsequent encounter; M21.541 Acquired clubfoot, right foot; V29.9XXD Motorcycle rider (driver) (passenger) injured in unspecified traffic accident, subsequent encounter; Y92.89 Other specified places as the place of occurrence of the external cause; Y99.8 Other external cause status; Z91.19 Patient's noncompliance with other medical treatment and regimen; Z87.39 Personal history of other diseases of the musculoskeletal system and connective tissue | CPT/HCPCS: 11042; A6253; A6402 ==

== ENCOUNTER 2018-02-25 10:42 | Outpatient (CLI) | payer MEDICARE | END 2018-02-25 23:59 | disposition home health service (06) | LOC: WOU 10:42 | PROVIDERS: ATTEND Podiatrist Foot & Ankle Surgery | DX: E11.621 Type 2 diabetes mellitus with foot ulcer (principal); E11.622 Type 2 diabetes mellitus with other skin ulcer; L97.312 Non-pressure chronic ulcer of right ankle with fat layer exposed; L97.512 Non-pressure chronic ulcer of other part of right foot with fat layer exposed; S81.812D Laceration without foreign body, left lower leg, subsequent encounter; M21.549 Acquired clubfoot, unspecified foot; E11.42 Type 2 diabetes mellitus with diabetic polyneuropathy; E11.610 Type 2 diabetes mellitus with diabetic neuropathic arthropathy; L03.119 Cellulitis of unspecified part of limb; V29.9XXD Motorcycle rider (driver) (passenger) injured in unspecified traffic accident, subsequent encounter; Y92.89 Other specified places as the place of occurrence of the external cause; Z91.19 Patient's noncompliance with other medical treatment and regimen; B96.89 Other specified bacterial agents as the cause of diseases classified elsewhere | CPT/HCPCS: 11042; A6253; A6402 ==

== ENCOUNTER 2018-03-01 11:20 | Outpatient (CLI) | payer MEDICARE | END 2018-03-01 23:59 | disposition home health service (06) | LOC: WOU 11:20 | PROVIDERS: ATTEND Podiatrist Foot & Ankle Surgery | DX: E11.621 Type 2 diabetes mellitus with foot ulcer (principal); L97.512 Non-pressure chronic ulcer of other part of right foot with fat layer exposed; L97.312 Non-pressure chronic ulcer of right ankle with fat layer exposed; S81.812D Laceration without foreign body, left lower leg, subsequent encounter; V29.9XXD Motorcycle rider (driver) (passenger) injured in unspecified traffic accident, subsequent encounter; Y92.89 Other specified places as the place of occurrence of the external cause; E11.65 Type 2 diabetes mellitus with hyperglycemia; E11.42 Type 2 diabetes mellitus with diabetic polyneuropathy; E11.610 Type 2 diabetes mellitus with diabetic neuropathic arthropathy; Z91.19 Patient's noncompliance with other medical treatment and regimen; Z79.891 Long term (current) use of opiate analgesic; M21.541 Acquired clubfoot, right foot; R60.9 Edema, unspecified | CPT/HCPCS: 11042; 82962-TC; A6253; A6402 ==

== ENCOUNTER 2018-03-04 10:40 | Outpatient (CLI) | payer MEDICARE | END 2018-03-04 23:59 | disposition home health service (06) | LOC: WOU 10:40 | PROVIDERS: ATTEND Podiatrist Foot & Ankle Surgery | DX: E11.621 Type 2 diabetes mellitus with foot ulcer (principal); E11.622 Type 2 diabetes mellitus with other skin ulcer; L97.512 Non-pressure chronic ulcer of other part of right foot with fat layer exposed; L97.312 Non-pressure chronic ulcer of right ankle with fat layer exposed; E11.42 Type 2 diabetes mellitus with diabetic polyneuropathy; Z79.891 Long term (current) use of opiate analgesic; Z91.19 Patient's noncompliance with other medical treatment and regimen; M21.541 Acquired clubfoot, right foot; L03.115 Cellulitis of right lower limb | CPT/HCPCS: 11042; A6253; A6402 ×2 ==

== ENCOUNTER 2018-03-11 12:00 | Outpatient (CLI) | payer MEDICARE | END 2018-03-11 23:59 | disposition home health service (06) | LOC: WOU 12:00 | PROVIDERS: ATTEND Podiatrist Foot & Ankle Surgery | DX: E11.621 Type 2 diabetes mellitus with foot ulcer (principal); E11.622 Type 2 diabetes mellitus with other skin ulcer; L97.812 Non-pressure chronic ulcer of other part of right lower leg with fat layer exposed; L97.312 Non-pressure chronic ulcer of right ankle with fat layer exposed; E11.65 Type 2 diabetes mellitus with hyperglycemia; E11.42 Type 2 diabetes mellitus with diabetic polyneuropathy; Z79.899 Other long term (current) drug therapy; Z91.19 Patient's noncompliance with other medical treatment and regimen; E11.69 Type 2 diabetes mellitus with other specified complication; M86.9 Osteomyelitis, unspecified | CPT/HCPCS: 11042; 97597; A6253; A6402 ==

== ENCOUNTER 2018-03-18 12:45 | Outpatient (CLI) | payer MEDICARE | END 2018-03-18 23:59 | disposition home health service (06) | LOC: WOU 12:45 | PROVIDERS: ATTEND Podiatrist Foot & Ankle Surgery | DX: E11.621 Type 2 diabetes mellitus with foot ulcer (principal); L97.512 Non-pressure chronic ulcer of other part of right foot with fat layer exposed; L97.312 Non-pressure chronic ulcer of right ankle with fat layer exposed; E11.42 Type 2 diabetes mellitus with diabetic polyneuropathy; E11.65 Type 2 diabetes mellitus with hyperglycemia; M21.541 Acquired clubfoot, right foot; D53.9 Nutritional anemia, unspecified; Z79.891 Long term (current) use of opiate analgesic; Z79.899 Other long term (current) drug therapy; Z91.19 Patient's noncompliance with other medical treatment and regimen | CPT/HCPCS: 11042; A6402; A6452 ==

== ENCOUNTER 2018-03-29 11:50 | Outpatient (CLI) | payer MEDICARE | END 2018-03-29 23:59 | disposition home health service (06) | LOC: WOU 11:50 | PROVIDERS: ATTEND Podiatrist Foot & Ankle Surgery | DX: E11.621 Type 2 diabetes mellitus with foot ulcer (principal); L97.512 Non-pressure chronic ulcer of other part of right foot with fat layer exposed; E11.65 Type 2 diabetes mellitus with hyperglycemia; E11.42 Type 2 diabetes mellitus with diabetic polyneuropathy; M21.541 Acquired clubfoot, right foot; Z91.19 Patient's noncompliance with other medical treatment and regimen; Z79.899 Other long term (current) drug therapy | CPT/HCPCS: 11042; A6253; A6402 ==

== ENCOUNTER 2018-04-06 10:35 | Outpatient (CLI) | payer MEDICARE | END 2018-04-06 23:59 | disposition home health service (06) | LOC: WOU 10:35 | PROVIDERS: ATTEND Podiatrist Foot & Ankle Surgery | DX: E11.621 Type 2 diabetes mellitus with foot ulcer (principal); L97.512 Non-pressure chronic ulcer of other part of right foot with fat layer exposed; E11.42 Type 2 diabetes mellitus with diabetic polyneuropathy; E11.610 Type 2 diabetes mellitus with diabetic neuropathic arthropathy; B35.1 Tinea unguium; L84 Corns and callosities | CPT/HCPCS: 11042; A6253; A6402 ==

== ENCOUNTER 2018-04-19 13:05 | Outpatient (CLI) | payer MEDICARE | END 2018-04-19 23:59 | disposition home health service (06) | LOC: WOU 13:05 | PROVIDERS: ATTEND Podiatrist Foot & Ankle Surgery | DX: E11.621 Type 2 diabetes mellitus with foot ulcer (principal); L97.512 Non-pressure chronic ulcer of other part of right foot with fat layer exposed; L97.312 Non-pressure chronic ulcer of right ankle with fat layer exposed; E11.622 Type 2 diabetes mellitus with other skin ulcer; M21.171 Varus deformity, not elsewhere classified, right ankle; E11.65 Type 2 diabetes mellitus with hyperglycemia; E11.610 Type 2 diabetes mellitus with diabetic neuropathic arthropathy; Z79.899 Other long term (current) drug therapy | CPT/HCPCS: 11042; A6253; A6402 ==

== ENCOUNTER 2018-05-03 12:09 | Outpatient (CLI) | payer MEDICARE | END 2018-05-03 23:59 | disposition home health service (06) | LOC: WOU 12:09 | PROVIDERS: ATTEND Podiatrist Foot & Ankle Surgery | DX: E11.621 Type 2 diabetes mellitus with foot ulcer (principal); L97.512 Non-pressure chronic ulcer of other part of right foot with fat layer exposed; E11.65 Type 2 diabetes mellitus with hyperglycemia; Z91.19 Patient's noncompliance with other medical treatment and regimen; E11.42 Type 2 diabetes mellitus with diabetic polyneuropathy; E11.610 Type 2 diabetes mellitus with diabetic neuropathic arthropathy; M21.541 Acquired clubfoot, right foot; Z79.4 Long term (current) use of insulin; Z79.899 Other long term (current) drug therapy | CPT/HCPCS: 11042; A6253; A6402; Z7610 ==

== ENCOUNTER 2018-05-18 13:15 | Inpatient (IN) | payer BC, MEDICARE ==
[~2018-05-18] VITALS: Ht 175.3 cm; Wt 71.7 kg
--- NOTE | 2018-05-18 13:40 | NUR ---
Sent by podiatry for admission; possible infection of his right foot;DM. C/O right Charcot foot- had multiple debridement done in the past; currently in a cast. a/ox 4, breathing even and unlabored. no sob, nad, vitals stable. no fevers. safety and comfort measures in place. awaiting md orders.
--- NOTE | 2018-05-18 13:45 | NUR ---
NEW IV STARTED ON RFA, 18G. BLOOD DRAWN AND SENT TO LAB.
[2018-05-18 13:55] LABS: BASOPHILS # (AUTO) 0.1 /CMM (0.0-0.2); BASOPHILS % (AUTO) 0.9 % (0.0-2.0); EOSINOPHILS % (AUTO) 3.7 % (0.0-6.0); HEMATOCRIT 29 % (39-51); HEMOGLOBIN 9.9 g/dL (13.5-17.5); LYMPHOCYTES # (AUTO) 1.3 /CMM (0.8-4.8); LYMPHOCYTES % (AUTO) 13.2 % (20.0-44.0); MEAN CORPUSCULAR HEMOGLOBIN 31 PG (26.0-33.0); MEAN CORPUSCULAR HGB CONC 34 g/dl (31.0-36.0); MEAN CORPUSCULAR VOLUME 90 fL (80-96); MONOCYTES # (AUTO) 0.5 /CMM (0.1-1.30); MONOCYTES % (AUTO) 5.6 % (2.0-12.0); NEUTROPHILS # (AUTO) 7.3 /CMM (1.8-8.9); NEUTROPHILS % (AUTO) 76.6 % (43.0-81.0); PLATELET COUNT (AUTO) 376 /CMM (150-450); RDW COEFFICIENT OF VARIATION 11.4 (11.5-15.0); RED BLOOD CELL COUNT(AUTO) 3.21 MIL/uL (4.5-6.0); WHITE BLOOD COUNT (AUTO) 9.6 K/uL (4.3-11.0)
[2018-05-18 14:09] LABS: INR 0.9 (0.85-1.15)
[2018-05-18 14:11] LABS: ALANINE AMINOTRANSFERASE 28 U/L (12-78); ALBUMIN 3.2 g/dL (3.4-5.0); ALKALINE PHOSPHATASE 117 U/L (46-116); BILIRUBIN,TOTAL 0.2 mg/dL (0.2-1.0); CARBON DIOXIDE 27 mmol/L (21-32); CHLORIDE 104 mmol/L (98-107); CREATININE 1.8 mg/dL (0.6-1.3); POTASSIUM 4.3 mmol/L (3.5-5.1); SODIUM SERUM 134 mmol/L (136-145); TOTAL PROTEIN, SERUM 7.2 g/dL (6.4-8.2); UREA NITROGEN, BLOOD 20 mg/dL (7-18)
[2018-05-18 14:13] LABS: GLUCOSE 378 mg/dL (74-106); TROPONIN I < 0.017 ng/mL (0.00-0.056)
--- NOTE | 2018-05-18 14:24 | NUR ---
URINE OBTAINED AND SENT TO LAB.
--- NOTE | 2018-05-18 15:06 | NUR ---
PAGED DR. ALBERT
--- NOTE | 2018-05-18 15:09 | NUR ---
IS SPEAKING WITH DR. MUIR
[2018-05-18 15:10] LABS: ASPARTATE AMINOTRANSFERASE 24 U/L (15-37)
--- NOTE | 2018-05-18 15:11 | NUR ---
PAGED [facility] FOR PANEL - [employer] RABIA HADDAD
--- NOTE | 2018-05-18 15:26 | NUR ---
CALLED NURSE SUP TO MED/SURG BED
[2018-05-18] MEDS ORDERED: IV NS 0.9% 1,000 ML BAG IV ONE (15:30)
[2018-05-18] MEDS ORDERED: PIPERACILLIN /TAZOBACTAM 2.25 G in IV D5W 50 ML IV ONE (15:30)
[2018-05-18] MEDS ORDERED: VANCOMYCIN 1 GM in IV D5W 250 ML IV ONE (15:30)
[2018-05-18] MEDS ORDERED: DEXTROSE 50%-WATER 50 ML DISP.SYRIN IV PRN (16:00)
[2018-05-18] MEDS ORDERED: Z GUARD REMEDY 2 OZ OINT TP PRN (16:00)
[2018-05-18] MEDS ORDERED: MAGNESIUM HYDROXIDE 30 ML UDC PO PRN (16:00)
[2018-05-18] MEDS ORDERED: LABETALOL 20 MG/4 ML VIAL IV ONE (16:00)
[2018-05-18] MEDS ORDERED: ACETAMINOPHEN 325 MG TABLET PO PRN (16:00)
[2018-05-18] MEDS ORDERED: ZOLPIDEM TARTRATE 5 MG TABLET PO PRN ×2 (16:00)
[2018-05-18] MEDS ORDERED: ONDANSETRON HCL/PF 4 MG/2 ML VIAL IVP PRN (16:00)
[2018-05-18] MEDS ORDERED: MAG HYDROX/AL HYDROX/SIMETH 30 ML UDC PO PRN (16:00)
[2018-05-18] MEDS ORDERED: VANCOMYCIN 1 GM in IV NS 0.9% 250 ML IV SCH (16:00)
[2018-05-18] MEDS ORDERED: LABETALOL HCL IV 100MG VIAL ONE (16:01)
--- NOTE | 2018-05-18 16:19 | NUR ---
REPORT GIVEN TO JACKELINE HOLT FOR LUIS UPON ADMISSION.
[2018-05-18 16:29] LABS: APPEARANCE,URINE Clear (CLEAR); BILIRUBIN,URINE Negative (NEGATIVE); BLOOD, URINE Small Ery/uL (NEGATIVE); COLOR,URINE Yellow (YELLOW); KETONES,URINE Negative (NEGATIVE); LEUKOCYTE ESTERASE ,URINE Negative (NEGATIVE); NITRITE, URINE Negative (NEGATIVE); PH,URINE 5.5 (5.0-8.0); PROTEIN,URINE 30 mg/dl (NEGATIVE); UGLUCOSE >=1000 mg/dL (NEGATIVE); UROBILINOGEN,URINE 0.2 EU/dL (0.2)
--- NOTE | 2018-05-18 16:30 | NUR ---
PATIENT TRANSPORTED TO [facility] VIA STRETCHER. RNJACKELINE TO PROVIDE LUIS.
[2018-05-18] MEDS ORDERED: FEE PK DOSING 1 MIN EA MC ONE (16:46)
[2018-05-18 16:52] LABS: BACTERIA,URINE None seen /HPF (None Seen); SQUAMOUS EPITHELIAL CELL,UR Rare /HPF (None Seen); WBC,URINE 0-2 /HPF (0-3)
[2018-05-18 17:00] VITALS: BP 144/77
[2018-05-18] MEDS ORDERED: GABAPENTIN 300 MG CAPSULE PO SCH (17:00)
--- NOTE | 2018-05-18 17:00 | NUR ---
M/S RN - Admission Patient awake, A/O x 4, denies pain, no evidence of resp. distress, admitted for Right foot nonhealing wound, cellulitis, charcot, osteomyelitis. Saline lock on the RFA is patent, intact, with no signs of infiltration. All belongings verified and secured in the unit. Patient oriented to the unit and use of call light. Skin assessment done, noted with LLE multiple scabs, RLE with cast in place, per patient post debridement on the right foot, do not remove dressing, refused photo to be taken. Patient independent with bed mobility, ambulatory with minimal assist. All attended and met. Patient educated on the treatment plan. Admission orders noted and implemented. Fall precautions initiated. Will continue to monitor closely.
[2018-05-18] MEDS: LISINOPRIL (20MG) 20 MG TABLET PO SCH (17:35)
[2018-05-18] MEDS: BLOOD SUGAR DIAGNOSTIC 1 EACH STRIP VI SCH ×2 (17:35→22:07)
[2018-05-18] MEDS: ACIDOPHILUS/BULGARICUS 1 EACH TAB.CHEW PO SCH (17:35)
[2018-05-18] MEDS: INSULIN REGULAR, HUMAN 100 UNIT/ML 3 ML VIAL SQ PRN ×2 (17:39→21:42)
--- NOTE | 2018-05-18 19:00 | NUR ---
M/S RN - End notes No new events seen, blood glucose 381 mg/dL, 15 units given per sliding scale coverage, denies pain, no apparent distress. All needs attended. Will continue with current medical management.
--- NOTE | 2018-05-18 19:10 | NUR ---
RN M/S NOTE RECEIVED PATIENT AOX4, SPEECH CLEAR, ABLE TO MAKE NEEDS KNOWN, DENIES PAIN, AMBULATORY, NO S/SX CARDIAC OR RESPIRATORY DISTRESS, ON ROOM AIR, R FOOT CAST IN PLACE, PT IS AMBULATORY, RFA #18G SL PATENT FLUSHING WELL, SITE CDI, DENIES ANY S/SX OF HYPO/HYPERGLYCEMIA. SAFETY MAINTAINED AT ALL TIMES, CALL LIGHT WITHIN REACH, BED IN LOW LOCKED POSITION, WILL CONTINUE TO MONITOR FOR ANY CHANGES IN CONDITION.
[2018-05-18 20:00] VITALS: BP 150/80
[2018-05-18] MEDS: LEVOFLOXACIN 500 MG /D5W 100ML 500 MG in PREMIX 1 EA IV SCH (21:38)
[2018-05-18] MEDS: INSULIN GLARGINE, 100 UNIT/ML CARTRIDGE SQ SCH (21:41)
[2018-05-18] MEDS ORDERED: PIPERACILLIN /TAZOBACTAM 3.375 G in IV NS 0.9% 50 ML IV SCH (22:00)
[2018-05-19] MEDS ORDERED: VANCOMYCIN 1 GM VIAL ONE (03:55)
[2018-05-19] MEDS: VANCOMYCIN 0.75 GM in IV NS 0.9% 250 ML IV SCH ×2 (04:24→16:28)
[2018-05-19] MEDS: HYDROCODONE/APAP 10/325MG 1 EA TABLET PO PRN (04:25)
[2018-05-19 06:50] LABS: THYROID STIMULATING HORMONE 1.413 uIU/mL (0.358-3.74)
[2018-05-19 07:09] LABS: CALCIUM, SERUM 8.1 mg/dL (8.5-10.1); CREATININE 1.7 mg/dL (0.6-1.3); MAGNESIUM 1.8 mg/dL (1.8-2.4); PHOSPHORUS 4.1 mg/dL (2.5-4.9)
--- NOTE | 2018-05-19 07:30 | NUR ---
RN MS AM NOTE RECEIVED PATIENT IN BED, AOX4, SPEECH CLEAR, ABLE TO MAKE NEEDS KNOWN, DENIES PAIN, AMBULATORY, NO S/SX CARDIAC OR RESPIRATORY DISTRESS, ON ROOM AIR, R FOOT CAST IN PLACE, PT IS AMBULATORY, RFA #18G SL PATENT FLUSHING WELL, SITE CDI, DENIES ANY S/SX OF HYPO/HYPERGLYCEMIA. SAFETY MAINTAINED AT ALL TIMES, CALL LIGHT WITHIN REACH, BED IN LOW LOCKED POSITION, WILL CONTINUE TO MONITOR FOR ANY CHANGES IN CONDITION.
[2018-05-19 07:47] LABS: BASOPHILS # (AUTO) 0.1 /CMM (0.0-0.2); EOSINOPHILS % (AUTO) 5.6 % (0.0-6.0); HEMATOCRIT 27 % (39-51); HEMOGLOBIN 9.2 g/dL (13.5-17.5); LYMPHOCYTES # (AUTO) 1.5 /CMM (0.8-4.8); LYMPHOCYTES % (AUTO) 18.7 % (20.0-44.0); MEAN CORPUSCULAR HEMOGLOBIN 31 PG (26.0-33.0); MEAN CORPUSCULAR HGB CONC 34 g/dl (31.0-36.0); MEAN CORPUSCULAR VOLUME 91 fL (80-96); MONOCYTES # (AUTO) 0.7 /CMM (0.1-1.30); NEUTROPHILS # (AUTO) 5.4 /CMM (1.8-8.9); NEUTROPHILS % (AUTO) 65.7 % (43.0-81.0); PLATELET COUNT (AUTO) 301 /CMM (150-450); RDW COEFFICIENT OF VARIATION 11.4 (11.5-15.0); RED BLOOD CELL COUNT(AUTO) 2.95 MIL/uL (4.5-6.0); WHITE BLOOD COUNT (AUTO) 8.3 K/uL (4.3-11.0)
[2018-05-19 08:00] VITALS: BP 158/90
[2018-05-19] MEDS: ACIDOPHILUS/BULGARICUS 1 EACH TAB.CHEW PO SCH ×3 (08:49→16:28)
[2018-05-19] MEDS: PANTOPRAZOLE 40 MG TABLET.DR PO SCH (08:49)
[2018-05-19] MEDS: LISINOPRIL (20MG) 20 MG TABLET PO SCH ×2 (08:52→16:29)
[2018-05-19] MEDS: BLOOD SUGAR DIAGNOSTIC 1 EACH STRIP VI SCH ×4 (08:53→22:16)
[2018-05-19] MEDS: ASCORBIC ACID 500 MG TABLET PO SCH (08:53)
--- NOTE | 2018-05-19 08:53 | NUR ---
MS RN NOTES ACCUCHECK. BS 163 MG/DL. 3 UNITS HUM R PER SS GIVEN.
[2018-05-19] MEDS: INSULIN REGULAR, HUMAN 100 UNIT/ML 3 ML VIAL SQ PRN (09:03)
--- NOTE | 2018-05-19 09:30 | NUR ---
MS RN NOTES DUE MEDS GIVEN
[2018-05-19] MEDS: GABAPENTIN 300 MG CAPSULE PO SCH ×2 (10:50→16:28)
--- NOTE | 2018-05-19 12:08 | NUR ---
MS RN NOTES ACCUCHECK. BS 109 MG/DL. NO INSULIN COVERAGE GIVEN.
[2018-05-19 16:00] VITALS: BP 139/88
--- NOTE | 2018-05-19 16:04 | NUR ---
MS RN NOTES PATIENT BACK FROM MRI
--- NOTE | 2018-05-19 16:28 | NUR ---
MS RN NOTES STARTED VANCO IV.
--- NOTE | 2018-05-19 16:45 | NUR ---
MS RN NOTES ACCUCHECK. BS 131 MG/DL. NO INSULIN COVERAGE GIVEN. PATIENT REFUSED
--- NOTE | 2018-05-19 18:39 | NUR ---
RN MS CLOSING NOTE PATIENT IN BED, RESTING COMFORTABLY, AOX4, SPEECH CLEAR, ABLE TO MAKE NEEDS KNOWN, DENIES PAIN, AMBULATORY, NO S/SX CARDIAC OR RESPIRATORY DISTRESS, ON ROOM AIR, R FOOT CAST IN PLACE, PT IS AMBULATORY, RFA #18G SL PATENT FLUSHING WELL, SITE CDI, DENIES ANY S/SX OF HYPO/HYPERGLYCEMIA. SAFETY MAINTAINED AT ALL TIMES, CALL LIGHT WITHIN REACH, BED IN LOW LOCKED POSITION, ALL NEEDS MET AT THIS TIME. SEEN BY DR. MICHELE NO NEW ORDER. NO OTHER SIGNIFICANT CHANGE IN CONDITION. WILL ENDORSE TO NEXT SHIFT FOR LUIS.
--- NOTE | 2018-05-19 19:10 | NUR ---
RN NOTES RECEIVED PT AWAKE, SITTING IN BED, ON ROOM AIR AND TOLERATED WELL. PT ALERT AND ORIENTED X4, DENIES ANY PAIN AND DISCOMFORT AT THIS TIME. RIGHT LOWER LEG WITH CAST INTACT. IV ACCESS ON RIGHT FOREARM PATENT AND INTACT. ALL NEEDS ATTENDED. SAFETY MEASURES IN PLACED. WILL CONTINUE TO MONITOR PT.
[2018-05-19 20:00] VITALS: BP 139/74
[2018-05-19] MEDS: LEVOFLOXACIN 500 MG /D5W 100ML 500 MG in PREMIX 1 EA IV SCH (22:16)
[2018-05-19] MEDS: INSULIN GLARGINE, 100 UNIT/ML CARTRIDGE SQ SCH (22:17)
[2018-05-19] MEDS: *INSULIN REGULAR(HUMULIN R)HUM 100 UNIT/ML VIAL SQ PRN (22:18)
[2018-05-20] MEDS: VANCOMYCIN 0.75 GM in IV NS 0.9% 250 ML IV SCH ×2 (04:08→16:18)
[2018-05-20] MEDS: BLOOD SUGAR DIAGNOSTIC 1 EACH STRIP VI SCH ×4 (06:31→22:44)
[2018-05-20] MEDS: PANTOPRAZOLE 40 MG TABLET.DR PO SCH (06:33)
[2018-05-20] MEDS: INSULIN REGULAR, HUMAN 100 UNIT/ML 3 ML VIAL SQ PRN (06:33)
--- NOTE | 2018-05-20 06:59 | NUR ---
RN NOTES PT SLEPT WELL OVERNIGHT. VITAL SIGNS STABLE, DENIES ANY PAIN AND DISCOMFORT. FINAL BLOOD CULTURE RESULT RECEIVED AND SENT TO DR MICHELE, AWAITING FOR ORDER. ALL NEEDS ATTENDED. NO SIGNIFICANT CHANGE IN CONDITION NOTED. WILL ENDORSE TO MORNING RN FOR CONTINUITY OF CARE.
[2018-05-20 07:14] LABS: CALCIUM, SERUM 8.1 mg/dL (8.5-10.1); CREATININE 1.7 mg/dL (0.6-1.3); POTASSIUM 4.1 mmol/L (3.5-5.1)
[2018-05-20 07:23] LABS: THYROID STIMULATING HORMONE 0.855 uIU/mL (0.358-3.74); URIC ACID 6.1 mg/dL (2.6-7.2)
--- NOTE | 2018-05-20 07:30 | NUR ---
MS RN AM NOTE RECEIVED PATIENT IN BED, AOX4, SPEECH CLEAR, ABLE TO MAKE NEEDS KNOWN, DENIES PAIN, AMBULATORY, NO S/SX CARDIAC OR RESPIRATORY DISTRESS, ON ROOM AIR, R FOOT WITH CAST IN PLACE, PT IS AMBULATORY, RFA #18G SL PATENT FLUSHING WELL, SITE CDI, DENIES ANY S/SX OF HYPO/HYPERGLYCEMIA. SAFETY MAINTAINED AT ALL TIMES, CALL LIGHT WITHIN REACH, BED IN LOW LOCKED POSITION, WILL CONTINUE TO MONITOR FOR ANY CHANGES IN CONDITION.
[2018-05-20 08:00] VITALS: BP 158/89
[2018-05-20] MEDS: GABAPENTIN 300 MG CAPSULE PO SCH ×2 (09:07→16:19)
[2018-05-20] MEDS: LISINOPRIL (20MG) 20 MG TABLET PO SCH ×2 (09:08→16:19)
[2018-05-20] MEDS: ACIDOPHILUS/BULGARICUS 1 EACH TAB.CHEW PO SCH ×3 (09:08→16:19)
[2018-05-20] MEDS: ASCORBIC ACID 500 MG TABLET PO SCH (09:08)
--- NOTE | 2018-05-20 09:30 | NUR ---
MS RN NOTES DUE MEDS GIVEN
--- NOTE | 2018-05-20 11:28 | NUR ---
MS RN NOTES ACCUCHECK. BS 132 MG/DL. NO INSULIN COVERAGE GIVEN. PATIENT REFUSED.
[2018-05-20 16:00] VITALS: BP_SYST 158; BP_DIAS 89; BP_DIAS 93
--- NOTE | 2018-05-20 16:18 | NUR ---
MS RN NOTES STARTED VANCO IV.
--- NOTE | 2018-05-20 16:30 | NUR ---
MS RN NOTES ACCUCHECK. BS 100 MG/DL. NO INSULIN COVERAGE GIVEN.
[2018-05-20 20:00] VITALS: BP 169/91
[2018-05-20] MEDS: LEVOFLOXACIN 500 MG /D5W 100ML 500 MG in PREMIX 1 EA IV SCH (21:03)
[2018-05-20] MEDS: INSULIN GLARGINE, 100 UNIT/ML CARTRIDGE SQ SCH (22:49)
[2018-05-20] MEDS: *INSULIN REGULAR(HUMULIN R)HUM 100 UNIT/ML VIAL SQ PRN (22:50)
[2018-05-21] MEDS: VANCOMYCIN 0.75 GM in IV NS 0.9% 250 ML IV SCH ×2 (04:05→15:29)
[2018-05-21] MEDS: BLOOD SUGAR DIAGNOSTIC 1 EACH STRIP VI SCH ×4 (07:28→22:52)
--- NOTE | 2018-05-21 07:30 | NUR ---
RN M/S INITIAL NOTES: RECEIVED PT SITTING IN BED AWAKE, A&O X4. ON ROOM AIR, SATURATING WELL. NO SOB NOTED. DENIES ANY PAIN OR DISCOMFORT AT THIS TIME. CAST TO R LEG IN PLACE. IV TO RFA #18 GAUGE PATENT AND INTACT. ACCU CHECK DONE, BS 85.PT STATES HE WILL NEED COVERAGE AFTER BREAKFAST BUT EXPLAINED TO HIM THE INSULIN SCHEDULE AND WHAT THE DR HAS ORDERED. PT UNDERSTANDS BUT WILL TALK TO DR CAMARILLO TODAY. BED IN LOW LOCKED POSITION, CALL LIGHT WITHIN REACH. PLAN OF CARE DISCUSSED WITH PT. WILL CONTINUE TO MONITOR.
[2018-05-21 08:00] VITALS: BP 132/78
[2018-05-21] MEDS: ACIDOPHILUS/BULGARICUS 1 EACH TAB.CHEW PO SCH ×3 (08:01→17:15)
[2018-05-21] MEDS: ASCORBIC ACID 500 MG TABLET PO SCH (08:01)
[2018-05-21] MEDS: PANTOPRAZOLE 40 MG TABLET.DR PO SCH (08:01)
[2018-05-21] MEDS: LISINOPRIL (20MG) 20 MG TABLET PO SCH ×2 (08:01→17:15)
[2018-05-21] MEDS: GABAPENTIN 300 MG CAPSULE PO SCH ×2 (08:01→17:15)
[2018-05-21 08:07] LABS: CALCIUM, SERUM 8.6 mg/dL (8.5-10.1); CREATININE 1.8 mg/dL (0.6-1.3)
[2018-05-21] MEDS: *INSULIN REGULAR(HUMULIN R)HUM 100 UNIT/ML VIAL SQ PRN ×3 (11:55→22:58)
--- NOTE | 2018-05-21 13:00 | NUR ---
DR CAMARILLO AT BEDSIDE TO ASSESS PT.
[2018-05-21 15:57] LABS: APPEARANCE,URINE CLEAR (CLEAR); BILIRUBIN,URINE NEGATIVE (NEGATIVE); BLOOD, URINE NEGATIVE Ery/uL (NEGATIVE); COLOR,URINE YELLOW (YELLOW); KETONES,URINE NEGATIVE (NEGATIVE); LEUKOCYTE ESTERASE ,URINE NEGATIVE (NEGATIVE); NITRITE, URINE NEGATIVE (NEGATIVE); PH,URINE 5.5 (5.0-8.0); PROTEIN,URINE TRACE mg/dl (NEGATIVE); UGLUCOSE 3+ mg/dL (NEGATIVE); UROBILINOGEN,URINE 0.2 EU/dL (0.2)
[2018-05-21 16:11] LABS: BACTERIA,URINE None seen /HPF (None Seen); RBC,URINE 0-2 /HPF (0-2); SQUAMOUS EPITHELIAL CELL,UR 0-2 /HPF (None Seen); WBC,URINE 0-2 /HPF (0-3)
[2018-05-21 16:39] LABS: CREATININE, URINE 59.9 MG/DL (30.0-125.0); URINE TOTAL PROTEIN 30.4 mg/dL (0-11.9)
[2018-05-21 18:20] LABS: EOSINOPHIL,URINE None Seen
--- NOTE | 2018-05-21 18:45 | NUR ---
RN M/S NOTES: PT REMAINS IN BED, AWAKE A&O X4. DENIES ANY PAIN OR DISCOMFORT AT THIS TIME. ALL DUE MEDS GIVEN ORDERED. IV TO R HAND INTACT. BED IN LOW LOCKED POSITION, CALL LIGHT WITHIN REACH. WILL ENDORSE TO PM SHIFT FOR CONTINUITY OF CARE.
[2018-05-21 20:00] VITALS: BP 105/64
[2018-05-21] MEDS: LEVOFLOXACIN 500 MG /D5W 100ML 500 MG in PREMIX 1 EA IV SCH (21:14)
[2018-05-21] MEDS: INSULIN GLARGINE, 100 UNIT/ML CARTRIDGE SQ SCH (22:55)
[2018-05-22 03:20] LABS: BASOPHILS % (AUTO) 0.9 % (0.0-2.0); EOSINOPHILS % (AUTO) 4.3 % (0.0-6.0); HEMATOCRIT 27 % (39-51); HEMOGLOBIN 9.4 g/dL (13.5-17.5); MEAN CORPUSCULAR HEMOGLOBIN 31 PG (26.0-33.0); MEAN CORPUSCULAR HGB CONC 34 g/dl (31.0-36.0); MEAN CORPUSCULAR VOLUME 90 fL (80-96); MONOCYTES % (AUTO) 8.3 % (2.0-12.0); NEUTROPHILS % (AUTO) 60.5 % (43.0-81.0); PLATELET COUNT (AUTO) 322 /CMM (150-450); RDW COEFFICIENT OF VARIATION 12.7 (11.5-15.0); RED BLOOD CELL COUNT(AUTO) 3.03 MIL/uL (4.5-6.0); WHITE BLOOD COUNT (AUTO) 7.9 K/uL (4.3-11.0)
[2018-05-22 03:21] LABS: BASOPHILS # (AUTO) 0.1 /CMM (0.0-0.2); LYMPHOCYTES # (AUTO) 2.1 /CMM (0.8-4.8); MONOCYTES # (AUTO) 0.7 /CMM (0.1-1.30); NEUTROPHILS # (AUTO) 4.8 /CMM (1.8-8.9)
[2018-05-22 03:30] LABS: ALBUMIN 2.6 g/dL (3.4-5.0); BILIRUBIN,TOTAL 0.1 mg/dL (0.2-1.0); CALCIUM, SERUM 8.1 mg/dL (8.5-10.1); CREATININE 1.7 mg/dL (0.6-1.3); MAGNESIUM 1.8 mg/dL (1.8-2.4); PHOSPHORUS 3.9 mg/dL (2.5-4.9); POTASSIUM 4.2 mmol/L (3.5-5.1); TOTAL PROTEIN, SERUM 6.4 g/dL (6.4-8.2)
[2018-05-22] MEDS: VANCOMYCIN 0.75 GM in IV NS 0.9% 250 ML IV SCH (04:07)
[2018-05-22 05:54] VITALS: BP 171/90
[2018-05-22 08:00] VITALS: BP 131/75
[2018-05-22] MEDS: BLOOD SUGAR DIAGNOSTIC 1 EACH STRIP VI SCH ×4 (08:03→21:21)
[2018-05-22] MEDS: LISINOPRIL (20MG) 20 MG TABLET PO SCH ×2 (09:12→17:24)
[2018-05-22] MEDS: ASCORBIC ACID 500 MG TABLET PO SCH (09:12)
[2018-05-22] MEDS: PANTOPRAZOLE 40 MG TABLET.DR PO SCH (09:13)
[2018-05-22] MEDS: ACIDOPHILUS/BULGARICUS 1 EACH TAB.CHEW PO SCH ×3 (09:13→17:24)
[2018-05-22] MEDS: GABAPENTIN 300 MG CAPSULE PO SCH ×2 (09:13→17:25)
--- NOTE | 2018-05-22 12:00 | NUR ---
MS1/TAPPER SUPERVISOR OF CARE RECEIVED REPORT FROM NURSE FOR PT WITH DX OF CELLULITIS OF RIGHT ANKLE. ENDORSED TO CONTINUE CARE. ON GOING MONITORING.
--- NOTE | 2018-05-22 12:23 | NUR ---
gave full report at 1100 to next nurse told nurse Emerson . nurse verbalized understanding of report.
--- NOTE | 2018-05-22 12:25 | NUR ---
gave full report at 1200 to next nurse told nurse Irish to get consent right foot biopsy and collect stool if possible. nurse verbalized understanding of report.
[2018-05-22] MEDS: INSULIN REGULAR, HUMAN 100 UNIT/ML 3 ML VIAL SQ PRN ×2 (12:45→17:30)
[2018-05-22 15:39] LABS: OCCULT BLOOD STOOL NEGATIVE (NEGATIVE)
[2018-05-22 16:00] VITALS: BP 154/88
[2018-05-22] MEDS: *INSULIN REGULAR(HUMULIN R)HUM 100 UNIT/ML VIAL SQ PRN ×2 (17:28→21:36)
[2018-05-22] MEDS: CEFTRIAXONE 1 G in IV NS 0.9% 50 ML IV SCH (17:52)
[2018-05-22] MEDS ORDERED: IV NS 0.9% 250 ML IV ONE (18:00)
[2018-05-22] MEDS ORDERED: IV NS 0.9% 250 ML BAG IV ONE (18:00)
--- NOTE | 2018-05-22 19:49 | NUR ---
MS1/RN AM SHIFT END NOTES NO ACUTE CHANGE OF CONDITION NOTED SINCE TRANSFER OF CARE AT [facility] TODAY. ALL NEEDS MET. PT ENDORSED TO OM NURSE TO CONTINUE CARE. ALSO ENDORSED TO PLACE PT ON NPO FOR BONE BIOPSY TOMORROW, PREPARE PRE-OP CHECK LIST AND COLLECT STOOL SPECIMEN FOR OB (#3). IV SITE INTACT AND PATENT, CL WITHIN REACHED AND SAFETY MAINTAINED.
[2018-05-22 20:00] VITALS: BP 164/98
[2018-05-22] MEDS: INSULIN GLARGINE, 100 UNIT/ML CARTRIDGE SQ SCH ×2 (21:35→22:00)
[2018-05-22] MEDS: LEVOFLOXACIN (500MG) 500 MG TABLET PO SCH (21:55)
[2018-05-22] MEDS ORDERED: ACIDOPHILUS/BULGARICUS 1 EACH TAB.CHEW PO ONE (22:00)
--- NOTE | 2018-05-22 22:03 | NUR ---
MS RN NOTE PT ASKED TO TAKE LACTINEX WITH LEVAQUIN PO D/T DIARRHEA SYMPTOMS WHEN TAKING ANTIBIOTIC PO. SPOKE WITH HYDROLOGY TECHNICIAN DR. HERRERA WITH ORDERS FOR ONE TIME DOSE OF LACTINEX WITH LEVAQUIN NOW AND ALSO TO HOLD LANTUS 18 UNITS D/T NPO STATUS OF MIDNIGHT. ORDERS NOTED AND CARRIED OUT. WILL MONITOR.
[2018-05-22 23:40] LABS: OCCULT BLOOD STOOL NEGATIVE (NEGATIVE)
[2018-05-23 04:00] VITALS: BP 162/98
[2018-05-23] MEDS: BLOOD SUGAR DIAGNOSTIC 1 EACH STRIP VI SCH ×4 (05:32→22:26)
[2018-05-23 06:00] VITALS: BP 162/98
[2018-05-23] MEDS ORDERED: ANESTHESIA TRAY IN PYXIS 1 EA TRAY MC ONE (06:36)
[2018-05-23 06:41] LABS: CALCIUM, SERUM 8.2 mg/dL (8.5-10.1); CREATININE 1.7 mg/dL (0.6-1.3); POTASSIUM 4.3 mmol/L (3.5-5.1)
[2018-05-23] MEDS ORDERED: MIDAZOLAM HCL 2 MG/2ML VIAL ONE (07:08)
[2018-05-23] MEDS ORDERED: FENTANYL PF 100MCG/2ML AMPUL ONE (07:08)
--- NOTE | 2018-05-23 07:12 | NUR ---
MS RN NOTE PT PICKED UP BY SURGERY. A/O X4 AND WITHOUT DISTRESS NOTED. REMAINED STABLE DURING SHIFT. ALL NEEDS ATTENDED TO PROMPTLY. WILL ENDORSE TO NEXT SHIFT FOR CONTINUITY OF CARE.
--- NOTE | 2018-05-23 07:30 | NUR ---
SOFTWARE ENGINEER WEB APPLICATIONS NOTES PATIENT IS IN OR FOR HIS SCHEDULED PROCEDURE AT THIS TIME.
[2018-05-23] MEDS ORDERED: KETOROLAC TROMETHAMINE INJ 30 MG/ML VIAL ONE (08:35)
[2018-05-23 09:00] VITALS: BP 148/84
--- NOTE | 2018-05-23 09:05 | NUR ---
SLEEVE SEPARATOR NOTES PATIENT RETURNED FROM OR FOR PROCEDURE ON RIGHT LEG, VITALS STABLE, WOUND VAC IN PLACE ORDERED. NEW ORDERS RECEIVED, WILL CONTINUE TO MONITOR.
[2018-05-23] MEDS ORDERED: KETOROLAC TROMETHAMINE INJ 30 MG/ML VIAL IV ONE (09:30)
[2018-05-23] MEDS: GABAPENTIN 300 MG CAPSULE PO SCH ×2 (09:44→16:29)
[2018-05-23] MEDS: HYDROCODONE/APAP 10/325MG 1 EA TABLET PO PRN ×2 (09:44→20:42)
[2018-05-23] MEDS: ACIDOPHILUS/BULGARICUS 1 EACH TAB.CHEW PO SCH ×3 (09:45→16:28)
[2018-05-23] MEDS: LISINOPRIL (20MG) 20 MG TABLET PO SCH ×2 (09:45→16:28)
[2018-05-23] MEDS: PANTOPRAZOLE 40 MG TABLET.DR PO SCH (09:45)
[2018-05-23] MEDS: ASCORBIC ACID 500 MG TABLET PO SCH (09:45)
[2018-05-23] MEDS: MORPHINE SULFATE INJ 2 MG/ML DISP.SYRIN IV PRN ×2 (12:08→19:46)
[2018-05-23] MEDS: INSULIN REGULAR, HUMAN 100 UNIT/ML 3 ML VIAL SQ PRN (12:11)
[2018-05-23 16:00] VITALS: BP 127/74
[2018-05-23] MEDS: CEFTRIAXONE 1 G in IV NS 0.9% 50 ML IV SCH (17:04)
--- NOTE | 2018-05-23 18:40 | NUR ---
ENTER[employer]ISE SALES PERSON END NOTES PATIENT RESTING IN BED, NO SIGNS OF DISTRESS, ALL NEEDS ATTENDED TO, PAIN MEDICATIONS GIVEN. WILL ENDORSE TO BUSINESS BANKING RELATIONSHIP MANAGER FOR CONTINUITY OF CARE.
[2018-05-23 20:00] VITALS: BP 134/73
[2018-05-23] MEDS: LEVOFLOXACIN (500MG) 500 MG TABLET PO SCH (20:41)
[2018-05-23] MEDS: INSULIN GLARGINE, 100 UNIT/ML CARTRIDGE SQ SCH (22:31)
[2018-05-23] MEDS: *INSULIN REGULAR(HUMULIN R)HUM 100 UNIT/ML VIAL SQ PRN (22:32)
[2018-05-24 04:00] VITALS: BP 135/76
[2018-05-24] MEDS: MORPHINE SULFATE INJ 2 MG/ML DISP.SYRIN IV PRN ×3 (04:24→20:48)
[2018-05-24 07:27] LABS: CALCIUM, SERUM 8.2 mg/dL (8.5-10.1); CREATININE 1.8 mg/dL (0.6-1.3); POTASSIUM 4.8 mmol/L (3.5-5.1)
[2018-05-24] MEDS: PANTOPRAZOLE 40 MG TABLET.DR PO SCH (07:33)
[2018-05-24] MEDS: BLOOD SUGAR DIAGNOSTIC 1 EACH STRIP VI SCH ×4 (07:33→22:16)
[2018-05-24] MEDS: HYDROCODONE/APAP 10/325MG 1 EA TABLET PO PRN ×2 (07:33→15:33)
[2018-05-24 07:34] LABS: EOSINOPHILS % (AUTO) 2.2 % (0.0-6.0); HEMATOCRIT 26 % (39-51); HEMOGLOBIN 9.3 g/dL (13.5-17.5); LYMPHOCYTES % (AUTO) 8.6 % (20.0-44.0); MEAN CORPUSCULAR HEMOGLOBIN 32 PG (26.0-33.0); MEAN CORPUSCULAR HGB CONC 36 g/dl (31.0-36.0); MEAN CORPUSCULAR VOLUME 90 fL (80-96); MONOCYTES # (AUTO) 0.7 /CMM (0.1-1.30); MONOCYTES % (AUTO) 6.1 % (2.0-12.0); NEUTROPHILS # (AUTO) 9.3 /CMM (1.8-8.9); NEUTROPHILS % (AUTO) 83.1 % (43.0-81.0); PLATELET COUNT (AUTO) 325 /CMM (150-450); RDW COEFFICIENT OF VARIATION 11.7 (11.5-15.0); RED BLOOD CELL COUNT(AUTO) 2.92 MIL/uL (4.5-6.0); WHITE BLOOD COUNT (AUTO) 11.2 K/uL (4.3-11.0)
[2018-05-24 08:00] VITALS: BP 163/95
[2018-05-24] MEDS: LISINOPRIL (20MG) 20 MG TABLET PO SCH ×2 (08:59→17:47)
[2018-05-24] MEDS: GABAPENTIN 300 MG CAPSULE PO SCH ×2 (08:59→17:47)
[2018-05-24] MEDS: ACIDOPHILUS/BULGARICUS 1 EACH TAB.CHEW PO SCH ×3 (08:59→17:47)
[2018-05-24] MEDS: ASCORBIC ACID 500 MG TABLET PO SCH (08:59)
[2018-05-24] MEDS: *INSULIN REGULAR(HUMULIN R)HUM 100 UNIT/ML VIAL SQ PRN ×3 (09:11→20:59)
[2018-05-24 14:00] VITALS: BP 134/77
[2018-05-24] MEDS: CEFTRIAXONE 1 G in IV NS 0.9% 50 ML IV SCH (17:48)
--- NOTE | 2018-05-24 19:35 | NUR ---
RN MS INITIAL NOTES, PATIENT ALERT AND ORIENTED X4, ABLE TO VERBALIZED NEEDS AND CONCERNS, BREATHING EVEN AND UNLABORED , NO SOB/ACUTE DISTRESS NOTED AT THIS TIME, LEFT FA 22G, PATENT AND INTACT, NO IVF RUNNING, NO C/O PAIN OR DISCOMFORT AT THIS TIME, ALL NEEDS PROVIDED, CALL LIGHT W/I REACH, WILL CONTINUE TO MONITOR CLOSELY.
[2018-05-24 20:00] VITALS: BP 144/77
[2018-05-24] MEDS: INSULIN GLARGINE, 100 UNIT/ML CARTRIDGE SQ SCH (21:35)
[2018-05-25] MEDS: MORPHINE SULFATE INJ 2 MG/ML DISP.SYRIN IV PRN ×5 (00:18→21:31)
[2018-05-25 04:00] VITALS: BP_SYST 158; BP_SYST 171; BP_DIAS 70; BP_DIAS 89
--- NOTE | 2018-05-25 06:29 | NUR ---
RN MS CLOSING NOTES, PATIENT SLEEPING AT THIS TIME, BREATHING EVEN AND UNLABORED , NO SOB/ACUTE DISTRESS NOTED AT THIS TIME, LEFT FA 22G, PATENT AND INTACT, NO IVF RUNNING, NO C/O PAIN OR DISCOMFORT AT THIS TIME, ALL NEEDS PROVIDED, CALL LIGHT W/I REACH, NO SIGNIFICANT CHANGE OF CONDITION DURING THIS SHIFT, WILL ENDORSE ONTINUITY OF CARE TO ONCOMING NURSE.
[2018-05-25] MEDS: BLOOD SUGAR DIAGNOSTIC 1 EACH STRIP VI SCH ×3 (07:41→17:56)
[2018-05-25] MEDS: PANTOPRAZOLE 40 MG TABLET.DR PO SCH (07:45)
[2018-05-25] MEDS: HYDROCODONE/APAP 10/325MG 1 EA TABLET PO PRN ×2 (07:45→16:07)
[2018-05-25 08:00] VITALS: BP 164/89
[2018-05-25 08:52] VITALS: BP 145/79
[2018-05-25] MEDS: ASCORBIC ACID 500 MG TABLET PO SCH (08:53)
[2018-05-25] MEDS: ACIDOPHILUS/BULGARICUS 1 EACH TAB.CHEW PO SCH ×3 (08:53→18:03)
[2018-05-25 10:09] VITALS: BP 158/81
[2018-05-25] MEDS: GABAPENTIN 300 MG CAPSULE PO SCH ×2 (10:45→18:03)
[2018-05-25] MEDS: LISINOPRIL (20MG) 20 MG TABLET PO SCH ×2 (10:46→18:03)
--- NOTE | 2018-05-25 10:54 | NUR ---
PER DR MCKEON, DISCHARGE TODAY TO SNF VERBAL READBACK DONE DR MCKEON NOTIFIED OF PATHOLOGY RESULTS
[2018-05-25] MEDS ORDERED: CEFT1VIA15 IV (11:41)
[2018-05-25] MEDS: INSULIN REGULAR, HUMAN 100 UNIT/ML 3 ML VIAL SQ PRN ×2 (12:07→17:52)
[2018-05-25 16:00] VITALS: BP 133/77
[2018-05-25] MEDS: CEFTRIAXONE 1 G in IV NS 0.9% 50 ML IV SCH (17:45)
--- NOTE | 2018-05-25 19:35 | NUR ---
RN CLOSING NOTES: PATIENT RESTING IN BED. NONLABORED BREATHING NOTED ON ROOM AIR. DENYING PAIN AT THE MOMENT. PATIENT DENYING CHEST PAIN THROUGHOUT SHIFT. IV LINE ON LEFT FOREARM PATENT AND INTACT. WOUND VAC ON RIGHT LOWER EXTREMITY CONNECTED AT RUNNING AT [address] PER ORDERS. SPOKE TO DR NGUYEN IN AM- PER HIS ORDERS- FOLLOW CURRENT MISCELLANEOUS ORDER OF KEEPING THE DRESSING INTACT WHILE TRANSFERRING PATIENT TO SNF. PER DR VANN, OK TO OBTAIN A PORTABLE WOUND VAC IF POSSIBLE. VERBAL READBACK DONE AND CASE MANAGEMENT NOTIFIED GAVE REPORT TO MICHAEL HOLT AT [facility] AT 1800- PER MICHAEL WOUND VAC UNAVAILABLE AT [facility]. DISCHARGE PLACED ON WILL CALL PER CASE MANAGEMENT UNTIL WOUND VAC DELIVERY STATUS IS KNOW TONIGHT AT 9 PM- AWAITING CALLBACK FROM [facility] DR MCKEON NOTIFIED, PER HIS ORDERS, PROCEED TO DISCHARGE PATIENT . VERBAL READBACK DONE PATIENT REFUSING TO GET DISCHARGED TODAY UNLESS WOUND VAC AVAILABLE AT FACILITY DR MCKEON NOTIFIED. ENDORSED TO NEXT RN
[2018-05-25 20:00] VITALS: BP 140/71
--- NOTE | 2018-05-25 20:40 | NUR ---
2039 Received a call from Tulio Valdovinos of [facility] stating that wound vac for patient will be delivered to facility in 45 mins and that patient may be transferred. Notify patient that wound vac is going to be delivered and he agreed to transfer tonight.
--- NOTE | 2018-05-25 20:45 | NUR ---
2044 Called [facility] for transport and spoke with SKYLER Berg 30 minutes.
--- NOTE | 2018-05-25 21:21 | NUR ---
[facility] CALLED, REPORT GIVEN TO JONATHON RODRIGUEZ. AMBULANCE CALLED AWAITING TO TRANSFER THE PATIENT
--- NOTE | 2018-05-25 21:35 | NUR ---
EMT ARRIVED, PATIENT C/O RIGHT ANKLE PAIN- MORPHINE 2MG GIVEN ORDERED PATIENT IS READY FOR DISCHARGE
--- NOTE | 2018-05-25 22:00 | NUR ---
EMT WITH THE PATIENT LEFT THE FLOOR PATIENT IS D/C'D FROM THE HOSPITAL
== END 2018-05-25 22:02 | DRG 623 ==
LOC: ER 13:18 → MEDSG1 16:14
PROC: 0Q9N0ZX Drainage of Right Metatarsal, Open Approach, Diagnostic (ICD-10-PCS; 2018-05-23)
PROC: 0L8S0ZZ Division of Right Ankle Tendon, Open Approach (ICD-10-PCS; 2018-05-23)
PROC: 0JBQ0ZZ Excision of Right Foot Subcutaneous Tissue and Fascia, Open Approach (ICD-10-PCS; principal; 2018-05-23 07:00)
DX: E11.69 Type 2 diabetes mellitus with other specified complication (principal); L97.419 Non-pressure chronic ulcer of right heel and midfoot with unspecified severity; L03.115 Cellulitis of right lower limb; M86.671 Other chronic osteomyelitis, right ankle and foot; L97.319 Non-pressure chronic ulcer of right ankle with unspecified severity; E11.621 Type 2 diabetes mellitus with foot ulcer; E11.42 Type 2 diabetes mellitus with diabetic polyneuropathy; E11.65 Type 2 diabetes mellitus with hyperglycemia; E11.610 Type 2 diabetes mellitus with diabetic neuropathic arthropathy; E11.22 Type 2 diabetes mellitus with diabetic chronic kidney disease; E11.21 Type 2 diabetes mellitus with diabetic nephropathy; Z79.4 Long term (current) use of insulin; Z79.899 Other long term (current) drug therapy; Z98.84 Bariatric surgery status; D50.9 Iron deficiency anemia, unspecified; F32.9 Major depressive disorder, single episode, unspecified; G89.4 Chronic pain syndrome; B95.1 Streptococcus, group B, as the cause of diseases classified elsewhere; M21.179 Varus deformity, not elsewhere classified, unspecified ankle; M21.969 Unspecified acquired deformity of unspecified lower leg; I12.9 Hypertensive chronic kidney disease with stage 1 through stage 4 chronic kidney disease, or unspecified chronic kidney disease; Z79.84 Long term (current) use of oral hypoglycemic drugs; N18.3 Chronic kidney disease, stage 3 (moderate)
CPT/HCPCS: 36415; 71045-TC; 73630-TC; 73718-TC; 73721-TC; 80048-TC; 80053-TC; 80061-TC; 80076-TC; 80202-TC; 81000-TC; 82272-TC; 82306; 82570-TC; 82728-TC; 82746; 82962-TC; 83540-TC; 83605-TC; 83615-TC; 83735-TC; 84100-TC; 84155-TC; 84300-TC; 84443-TC; 84484-TC; 84550-TC; 85025-TC; 85045-TC; 85652-TC; 85730-TC; 86850-TC; 87040-TC; 87070-TC; 87081-TC; 87086-TC; 87186-TC; 88305-TC; 88311-TC; 93307-TC; A4216; A4606; J0696; J1815; J1885; J1956; J2250; J2270; J2405; J2543; J3010; J3370; J3490; J7030; J7040; J7050; J7060; Z7610